=== PATIENT | female | born 1960 | race Caucasian/White ===

== ENCOUNTER 2018-04-29 13:00 | Inpatient (IN) | payer BC ==
--- NOTE | 2018-05-07 13:49 | HP ---
HISTORY AND PHYSICAL: DATE OF SURGERY: 05/20/18 DATE OF OFFICE VISIT: 05/07/18 SURGEON: Asya Mireles MD * (DICTATED BY ISA VALDEZ) PROCEDURE: Left total knee arthroplasty. CHIEF COMPLAINT: Left knee pain. HISTORY OF PRESENT ILLNESS: Ms. Nugent is a 57-year-old female with complaints of left knee pain. She has failed conservative management and elected to proceed with a left total knee arthroplasty which is scheduled for 05/20/[address] Mireles. PAST MEDICAL HISTORY: Hypertension, diabetes, cervical cancer, depression, and anxiety. PAST SURGICAL HISTORY: Cone biopsy of the cervix. CURRENT MEDICATIONS: 1. Calcium. 2. Diltiazem 240 mg daily. 3. Fluoxetine 40 mg daily. 4. Glucosamine chondroitin. 5. Hydrochlorothiazide 25 mg daily. 6. Metformin 500 mg twice a day. 7. Mometasone furoate as needed. 8. Multivitamin daily. 9. Trazodone 100 mg 2 tabs q.h.s. 10. Vitamin B12. 11. Vitamin C. 12. Percocet 10/325 as needed. ALLERGIES: No known drug allergies. FAMILY HISTORY: AFib; breast, prostate, and uterine cancer; coronary artery disease, and Parkinson's. SOCIAL HISTORY: She is a 57-year-old female. She lives with her . She does not smoke, use drugs. She uses occasional alcohol. REVIEW OF SYSTEMS: A complete 14-point review of systems was reviewed with the patient and it was all negative and noncontributory. PHYSICAL EXAMINATION GENERAL: She is well developed, well nourished, in no acute distress. VITAL SIGNS: She stands 66 inches tall, weighs 287 pounds, her blood pressure is 124/70, heart rate is 84. HEENT: Normocephalic and atraumatic. NECK: Supple. No palpable lymph nodes. PULMONARY: The lungs are clear to auscultation bilaterally. CARDIO: Regular, rate and rhythm. Strong S1 and S2. ABDOMEN: Soft, nontender, and nondistended. NEUROLOGIC: She is alert and oriented x3. MUSCULOSKELETAL: Left lower extremity, the skin is intact. There is no open wounds or abrasions. There is a moderate joint effusion. She has some tenderness over the medial joint line. There is a varus deformity of the left knee. Her range of motion is 15 to 100 degrees of flexion with patellofemoral crepitus. She has 2+ dorsalis pedis pulses, intact sensation in her lower extremities. Muscle group strengths are intact at 5/5. ASSESSMENT AND PLAN: Ms. Nugent is a 57-year-old female with end-stage osteoarthritis of the left knee. She has failed conservative management and elected to proceed with a left total knee arthroplasty which is scheduled for 05/20/[address] Mireles discussed the risks and the benefits of the surgery at today's visit. All of her questions were answered. She will follow with Dr. Mireles in 2 weeks. ISA VALDEZ [id number]/CPS #: [id number] MTDD
[2018-05-19] MEDS ORDERED: Ondansetron TAB* 4 MG PO ONE (10:18)
[2018-05-19] MEDS ORDERED: Buffered Lidocaine 0.9% SYRIN* 5 ML/SYR SYRINGE INTRADERM ONE (10:18)
[2018-05-20] MEDS ORDERED: NS 0.9% IVPB SCH ×2
[2018-05-20] MEDS ORDERED: CEFAZOLIN IVPB SCH ×2
[2018-05-20] MEDS ORDERED: PROCHLORPERAZINE INJ 5 MG/ML 2 ML VIAL IV PRN (05:41)
[2018-05-20] MEDS ORDERED: oxyCODONE/Acetamin 5/325 MG* TAB PO PRN ×2 (05:41→12:12)
[2018-05-20] MEDS ORDERED: DiMENhydriNATE IV* 50 MG/ML VIAL IV PUSH PRN (05:41)
[2018-05-20] MEDS ORDERED: Naloxone* 0.4 MG/ML 1 ML VIAL IV PRN (05:41)
[2018-05-20] MEDS ORDERED: Scopolamine 1.5 mg* PATCH TRANSDERM ONE (06:00)
[2018-05-20] MEDS ORDERED: Famotidine IV* 10 MG/ML 2 ML (20 mg) IV ONE (06:00)
[2018-05-20] MEDS ORDERED: Gabapentin CAP(*) 300 MG PO ONE (06:00)
[2018-05-20] MEDS ORDERED: Dexamethasone TAB* 4 MG PO ONE (06:00)
[2018-05-20] MEDS ORDERED: Tranexamic Acid 1,000 MG/10 ML SDV IV ONE (07:18)
--- OUTSIDE RECORDS SUMMARY | 2018-05-20 07:40 | XMS REPORT ---
:1960 External Reference #:[id number] Author Organization [facility] Address [address] [place] [address] [place] [address] Phone [phone] Care Team Providers Name Role Phone Reba Brito MD Primary Care Physician Unavailable Payers Type Date Identification Numbers Payment Provider Subscriber Commercial Effective: Policy Number: [employer] Kinjal Nugent 2011 [id number] PayID: [id number] [address] [address] [place] [address] Problems Date Description Provider Status Onset: 02/03/2018 Localized, primary osteoarthritis Asya Mireles M.D. 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 ETOH Use Drinks 6 Alcoholic Beverages Per Week Smoking Patient is a former smoker quit 1 month ago Exercise Type/Frequency Exercises sporadically Allergies, Adverse Reactions, Alerts Date Description Reaction Status Severity Comments 02/03/2018 NKDA active Medications Medication Date Status Form Strength Qnty SIG Indications Ordering Provider Calcium 00 Active Tablets 500-125mg 1 by mouth Unknown 500/Vitamin D /0000 -Unit daily Fluoxetine HCL Active Capsules 40mg 1 by mouth Unknown /0000 every day Glucosamine 00 Active Capsules 1500Com 2 by mouth Unknown Chondroitin 1500 /0000 every day Complex Hydrochlorothiazid Active Tablets 25mg 1 by mouth Unknown e /0000 every day Metformin HCL Active Tablets 500mg 1 by mouth Unknown /0000 twice a day Mometasone Furoate Active Solution 0.1% as needed Unknown /0000 Multi-Vitamin Active Tablets 1 by mouth Unknown Daily /0000 every day Trazodone HCL Active Tablets 100mg take 2 tabs Unknown po at bedtime Vitamin B12 Active Tablets 1000mcg 1 by mouth Unknown ER every day Vitamin C Active Capsules 1 by mouth Unknown every day Percocet Active 10-325mg Unknown Diltiazem HCL ER Active Caps ER 240mg Alisha, Coated Beads 24HR Reba Berger MD Stool Softener Active Capsules 100mg 1 by mouth Unknown 2-3 times daily while on narcotic pain medication Cartia XT Hx Caps ER 180mg 1 by mouth Unknown 24HR every day - 05/07 Chantix Hx Tablets 1mg 1 by mouth Unknown twice a day - 05/07 Colchicine Hx Capsules 0.6mg 2 po at Unknown / first sigh - of flare 05/07 up, the po every 12 hours after that Meloxicam Hx - 04/10 Medications Administered in Office Medication Date Status Form Strength Qnty SIG Indications Ordering Provider Depomedrol Administered Injection Asya 40MG 018 Marquita Mireles Depomedrol Administered Injection Asya 40MG 018 Marquita Mireles Vital Signs Date Vital Result Comment 05/07/2018 Height 66.5 inches 5'6.50" Weight 286.00 lb Heart Rate 84 /min BP Systolic Sitting 124 mmHg BP Diastolic Sitting 70 mmHg Respiratory Rate 16 /min Body Temperature 97.8 F Pain Level 6 BMI (Body Mass Index) 45.5 kg/m2 04/11/2018 Height 66.5 inches 5'6.50" Weight 280.00 lb Heart Rate 80 /min BP Systolic 144 mmHg BP Diastolic 88 mmHg BMI (Body Mass Index) 44.5 kg/m2 03/14/2018 Height 67 inches 5'7" Weight 282.00 lb BP Systolic 138 mmHg BP Diastolic 88 mmHg Respiratory Rate 18 /min Pain Level 6 BMI (Body Mass Index) 44.2 kg/m2 03/03/2018 Height 67 inches 5'7" Weight 282.00 lb BP Systolic 138 mmHg BP Diastolic 84 mmHg Body Temperature 99.1 F BMI (Body Mass Index) 44.2 kg/m2 02/03/2018 Height 67 inches 5'7" Weight 282.00 lb Heart Rate 68 /min BP Systolic Sitting 152 mmHg LA lg cuff BP Diastolic Sitting 88 mmHg LA lg cuff Pain Level 8 BMI (Body Mass Index) 44.2 kg/m2 Results Description No Information Procedures Date CPT Code Description Status 02/03/2018 77700 Inject/Drain Joint/Bursa Major W/O US Completed Encounters Type Date Location Provider CPT E/M Dx Office Visit 04/11/2018 [facility] M[facility] M.D. 77310 M17.12 8:15a [facility] M21.162 E66.01 Z68.41 M25.562 M25.462 Office Visit 03/14/2018 10:15a [facility] M.D. 47143 M17.0 [facility] Office Visit 03/03/2018 9:15a [facility] M.D. 02538 M17.0 [facility] M25.561 M25.562 M25.461 M25.462 Office Visit 02/03/2018 8:30a [facility] M.D. 93812 M17.0 [facility] E66.01 Z68.41 M25.561 M25.562 M25.461 M25.462 Office Visit 12/22/2012 2:20p [facility] Steve Dooley, [address] 721.0 Of Kasie Juárez 723.1 Plan of Care Future Appointment(s):05/30/2018 2:00 pm - Asya Mireles M.D. at [facility]05/20/2018 9:30 am - Asya Mireles M.D. at [facility]05/07/2018 - Asya Mireles M.D.M17.12 Unilateral primary osteoarthritis, left kneeFollow up:Follow up: 2 weeks after skiqyfzV92.162 Varus deformity, not elsewhere classified, left kneeM25.562 Pain in left kneeM25.462 Effusion, left knee
--- OUTSIDE RECORDS SUMMARY | 2018-05-20 07:40 | XMS REPORT ---
:1960 External Reference #:[id number] Author Organization [facility] Address [address] [place] [place] [address] Phone [phone] Care Team Providers Name Role Phone Jeremiah Carrillo N.P. Care Team Information Lehr Tender Unavailable Reba Brito M.D., R.Rudolph Primary Care Physician Unavailable Payers Type Date Identification Numbers Payment Provider Subscriber Commercial Policy Number: [id number] [facility] Kinjal Nugent Group Number: [id number] 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 Cigarette Use Current Cigarette Smoker 1 Pack Daily 25 years Cigars Never Smoked Cigars Pipe Never Smoked A Pipe Smokeless Tobacco Never Used Smokeless Tobacco ETOH Use Currently occasionally consumes alcohol Smoking Patient is a former smoker Allergies, Adverse Reactions, Alerts Date Description Reaction Status Severity Comments 08/17/2011 NKDA active Medications Medication Date Status Form Strength Qnty SIG Indications Ordering Provider Fluticasone 05/08 Active Suspension 50mcg/Act 47.4m 2 puffs H69.83 Sebastián Propionate /2017 l both Mandy ortiz MD once a day Hydrochlorothiazid 00 Active 25mg 1 tab Unknown e daily Vitamin C Active 1 tab Unknown daily Multivitamins Active as Unknown directed Trazodone HCL Active Tablets 100mg 1 tab at Alisha, /0000 bedtime Reba Juárez, R.DJosh Metformin HCL Active Tablets 500mg 1 tab Lorena twice N.P., daily Jeremiah Diltiazem HCL ER Active Caps ER 240mg Alisha, Coated Beads 24HR Reba Juárez, R.DJosh Oxycodone-Acetamin Active Tablets 10-325mg as Alisha, ophen / directed Reba Juárez, R.Rudolph Glucosamine Active Tablets 1500Compl 2 tabs Unknown Chondroitin ex daily Complex Advanced Colace Active Capsules 100mg 1 by Unknown mouth twice a day Ciprodex 10/26 Hx Suspension 0.3-0.1% 1unit 3 gtts 380.23 Sebastián s bid [place] - affected , 05/08 [place] 10/18 Hx Ointment 0.1% 15G apply to 380.23 Sebastián affected [place] - area MD 05/08 twice a /2017 day Cipro 10/18 Hx Tablets 500mg 40tab 1 po bid 380.23 Sebastián s x 7 days Mandy - MD 05/08 Prozac / Hx Unknown - 05/08 Potassium Hx Unknown - 05/08 Calcium 500 Hx Unknown - 05/08 Lunesta Hx Unknown - 05/08 Neomycin/Polymyxin Hx Unknown /Hydrocortisone / - 10/18 Tobradex Hx Unknown - 10/18 Oxycodone HCL Hx Unknown - 05/08 Cipro HC Hx Unknown - 05/08 Hydrocodone-Acetam Hx Tablets 5-325mg Alisha inophen Reba Stevens M.D., 05/08 R.DJosh Vital Signs Date Vital Result Comment 05/08/2018 Weight 280.00 lb Weight in kg's 127.008 Height 67 inches 5'7" Height in cm's 170.2 cm BMI (Body Mass Index) 43.8 kg/m2 08/30/2011 BP Systolic 157 mmHg BP Diastolic 95 mmHg Heart Rate 71 /min Respiratory Rate 16 /min Weight 296.00 lb Weight in kg's 134.266 Height 67 inches 5'7" Height in cm's 170.2 cm BMI (Body Mass Index) 46.4 kg/m2 08/17/2011 Weight 296.00 lb Weight in kg's 134.266 Height 67 inches 5'7" Height in cm's 170.2 cm BMI (Body Mass Index) 46.4 kg/m2 Results Description No Information Procedures Description No Information Encounters Type Date Location Provider CPT E/M Dx Office Visit 05/08/2018 9:30a [place] 11/18/07 [place] [address] H69.83 L50.6 Office Visit 10/26/2011 9:45a [facility] 11/18/07 [place] [address] 380.23 388.60 Office Visit 10/19/2011 1:30p [place] 11/18/07 [place] [address] 380.23 388.60 Office Visit 10/18/2011 8:30a [place] 11/18/07 [place] [address] 380.23 Office Visit 08/30/2011 8:45a [place] 11/18/07 [place] [address] 380.23 Office Visit 08/17/2011 11:30a [place] 11/18/07 [place] [address] 388.60 380.23 401.9 Plan of Care Future Appointment(s):08/07/2018 9:15 am - Sebastián Galvan MD at [place] - Sebastián Galvan MDH69.83 Other specified disorders of Eustachian tube, bilateralNew Medication:Fluticasone Propionate 50 mcg/ ActComments:I think the patient has symptoms somewhat suggestive of eustachian tube dysfunction there is no significant mucosal abnormality. She has some mild summation of her lips I suggest she can try some topical nasal steroid like Flonase for eustachian tube symptoms this will probably improve some of her eye symptoms as well. She can use topical steroid for her lips sparingly. Recheck back in 3 months if symptoms have not improved.L50.6 Contact urticaria
--- OUTSIDE RECORDS SUMMARY | 2018-05-20 07:41 | XMS REPORT ---
:1960 External Reference #:[id number] Author Organization [facility] Address [address] [place] [address] Phone [phone] Care Team Providers Name Role Phone Reba Brito M.D., R.D. Care Team Information Forensic Scientist Unavailable Payers Type Date Identification Numbers Payment Provider Subscriber Commercial Effective: Policy Number: Deanna Simmons Raffi 2010 [id number] Expires: 2013 Group Name: [employer] ppo [address] PayID: [id number] ALEJO Miguel [id number] Medigap Part B Expires: 2009 Policy Number: Deanna Duval [id number] Group Number: [id number] [address] [address] Group Name: BC/BS of ALEJO Lopes [address]3549 PayID: [id number] Medigap Part B Effective: Policy Number: Deanna Simmons Raffi 2013 [id number] Expires: 2016 Group Name: [employer] [address] PayID: [id number] ALEJO Miguel [id number] Medigap Part B Effective: Policy Number: Deanna Simmons Raffi 2016 [id number] Group Name: [employer] [address] [address] PayID: [id number] ALEJO Miguel [id number] Problems Date Description Provider Status Onset: 09/19/2011 Type 2 diabetes mellitus Tammy Benton M.D. Active Onset: 09/19/2011 Essential hypertension Tammy Benton M.D. Active Onset: 09/19/2011 Pure hypercholesterolemia Tammy Benton M.D. Active Onset: 09/19/2011 Inflammatory disease of liver Tammy Benton M.D. Active Onset: 09/19/2011 Anxiety state Tammy Benton M.D. Active Family History Date Family Member(s) Problem(s) Comments Father Cancer, Prostate Mother Hypertension Mother Anticoagulation Mother Obesity Onset: (age 63 Years) Mother Cancer, Breast Mother Uterine cancer : (age 82 Paternal Grandfather due to Parkinson's Years) Paternal Grandfather CAD : (age 83 Paternal Grandmother due to Cancer, Lung Years) Maternal Grandfather CAD : (age 60 Maternal Grandfather due to AL Years) Maternal Grandfather Obesity Maternal Grandmother CAD : (age 82 Maternal Grandmother due to CHF (Congestive Years) Failure) Maternal Grandmother Obesity Social History Type Date Description Comments Marital Status Sleep Sleeping fairly well As of 11/2015, taking trazadone rarely Cigarette Use Former Cigarette Smoker ETOH Use Occasionally consumes alcohol Smoking Patient is a former smoker Stopped 2017 Daily Caffeine Coffee Am only, occasional iced tea Enjoy Exercising Enjoys exercising General Hx Text No longer smokes. Allergies, Adverse Reactions, Alerts Date Description Reaction Status Severity Comments 11/30/2010 NKDA active Medications Medication Date Status Form Strength Qnty SIG Indications Ordering Provider Ursula CHEUNG 04/25 Active Caps ER 240mg 30cap 1 by 24HR s mouth Alisha, daily for M.D., R.D. blood pressure Neomycin/Polymyxi 04/01 Active Solution [id number] 10ml instill 4 H60.8x3 Jeremiah n/Hydrocortisone /2018 -1 drops [place] (Otic) into both III, APPLICATION SUPPORT TECHNICIAN-C ears three times a day for 7 days Percocet 03/10 Active Tablets 10-325mg 90tab 1 by s mouth Alisha, every 4 M.D., R.D. hours as needed pain Meloxicam 02/28 Active Tablets 15mg 30tab 1 by M25.561 s mouth Alisha, every day Marquita, RJanice. Christie Contour 09/28 Active Strips 100un test Shawtonyai Dottie Next its blood Storm, Glucose Test sugar APPLICATION SUPPORT TECHNICIAN-C twice a day & as needed Vitamin B12 02/25 Active Tablets ER 1000mcg sl every day Marquita Brito, R.D. Calcium 500 + D 11/21 Active Tablets 500-125mg -Unit Marquita Brito, R.D. Glucosamine 11/21 Active Capsules Reba Chondroitin Marquita Brito, R.D. Multivitamins 11/21 Active Capsules 90cap 1 by s mouth Alisha, every day Marquita, REvelyn Vitamin C 11/21 Active Capsules 500mg 1 po qd Marquita Brito, R.D. Christie Contour 01/27 Active Kit W/Device 1unit use to Joan Sinclair Blood Glucose s test Storm, Monitoring System blood APPLICATION SUPPORT TECHNICIAN-C sugar daily for diabetes Mometasone 04/29 Active Ointment 0.1% 45gm apply as Reba Fur needed to kiana Brito M.D., REvelyn canals Trazodone HCL 12/14 Active Tablets 100mg 60tab take one G47.00 s or two reji Brito M.D., R.DJosh by mouth at at bedtime for treatment for insomnia Metformin HCL 09/19 Active Tablets 500mg 60tab take one E11.9 Jeremiah s tablet by Lorena mouth III, APPLICATION SUPPORT TECHNICIAN-C twice a day with meals Fluoxetine HCL 12/24 Active Capsules 40mg 90cap take one E78.0 Shawnti R. s capsule Storm, by mouth APPLICATION SUPPORT TECHNICIAN-C once daily Hydrochlorothiazi 07/28 Active Tablets 25mg 90tab take one Reba s tablet by ronal Brito M.D., R.DJosh once daily Hydrocodone-Aceta 04/11 Hx Tablets 5-325mg 45tab take 1 Reba s tablets Rodney Brito by mouth Marquita, RJoshDJosh 05/30 every hours as needed for severe pain Ciprodex 04/01 Hx Suspension 0.3-0.1% 7.500 apply 4 H60.8x3 ml drops [place] - into both III, APPLICATION SUPPORT TECHNICIAN-C 04/01 twice daily for 7 days. Percocet 02/05 Hx Tablets 5-325mg 60tab 2 by s mouth Alisha, - rosita Juárez, R.D. 03/10 times day as needed pain Chantix 01/13 Hx Tablets 1mg 60tab 1 by Kendall Continuing s mouth Deepak Thomas - twice a Chantix Starting 12/11 Hx Tablets 0.5mg X 1tabs take Reba 11 & 1 mg oraly per Alisha, - X 42 package Marquita, R.DJosh 01/13 s Cartia XT 10/28 Hx Caps ER 180mg 30cap 1 po qd 24HR s Rodney Brito M.D., R.D. 04/25 Colchicine 03/08 Hx Capsules 0.6mg 10cap 1.2 mg by M79.671 Kendall s mouth at [facility], - first 01/30 sign flare, then 0.6 mg 1 hour later . take every 12 hours until improving . Contrave 02/25 Hx Tablets ER 8-90mg 120ta take 2 12HR bs tablets Alisha, - by mouth Marquita, R.DJosh 10/21 twice a day Bactrim DS 05/11 Hx Tablets 800-160mg 20tab 1 by N61 Lalowntandrea R. s mouth Storm, - twice a APPLICATION SUPPORT TECHNICIAN-C 05/21 day for infection Cartia XT 03/20 Hx Caps ER 120mg 90cap Take One I10 Shawnti R. 24HR s Capsule Storm, - By Mouth APPLICATION SUPPORT TECHNICIAN-C 10/28 Daily as Directed Chrsitie Contour 01/27 Hx Strips 100un test Shawnti RJosh Blood Glucose /2014 its daily and Storm, Test Strips - as needed APPLICATION SUPPORT TECHNICIAN-C 09/28 diabetes Oxycodone/Acetami 07/16 Hx Tablets 5-325mg 90tab i-ii po 724.2 Shanon nop s qid prn Nicholas Gomez, - severe M.D. 04/21 pain /2014 Percocet 07/05 Hx Tablets 5-325mg 4tabs 1 po qd prn Brianda Marino, - severe M.D. 04/21 pain, do /[address] after taking Nabumetone 07/01 Hx Tablets 750mg 60tab one by Joan Sinclair s mouth Brenton, - twice a APPLICATION SUPPORT TECHNICIAN-C 04/21 day food for pain replaces ibuprofen Ibuprofen 06/25 Hx Tablets 600mg 90tab 1 by Shanon s mouth Nicholas Gomez, - three M.D. 07/01 times day as needed for pain in the knees Zolpidem Tartrate 11/30 Hx Tablets 5mg 30tab Take one Shanon s po at hs Nicholas Gomez, - M.D. 04/21 Nystatin 07/23 Hx Ointment [id number] 60gm apply to 110.2 t/GM affected Nicholas Gomez, - area bid M.D. 04/21 Fluocinonide 12/03 Hx Cream 0.05% 15gm use on 691.8 eczema K.W. - rash bid Chetan 04/21 prn Samira.DJosh Chantix 10/27 Hx Tablets 1mg 60tab 1 bid - s take one K.W. - tablet by Chetan 07/23 mouth M.D. twice daily Chantix Starting 09/30 Hx Tablets 0.5mg X 60tab as Reba Month 11 & 1 mg s Alisha liu, - X increase M.DJosh, R.D. 12/11 to one mg /2017 by mouth every day to quit smoking Metformin HCL 07/15 Hx Tablets 500mg 30tab take 11/19 723.1 s tablet by K.W. - mouth Chetan, 12/03 twice a M.D. day with meals Accu-Chek Comfort 05/16 Hx Strips 100un use as Shawnti R. Curve Test Strips /2011 its directed Brenton, - to check APPLICATION SUPPORT TECHNICIAN-C 01/27 fasting /2014 and post prandial blood sugar up to two times a day Oxycodone/Acetami 05/08 Hx Tablets 5-325mg 90tab i-ii po 724.2 Shanon nophen s qid prn Nicholas Gomez, - severe M.D. 07/23 pain /2012 Nabumetone 05/08 Hx Tablets 500mg 60tab 1 po bid 724.2 s prn Brijesh germainWJosh - back and Chetan, 12/03 other M.D. arthritic pain Cyclobenzaprine 05/08 Hx Tablets 10mg 30tab Take 11/19 724.2 Shanon HCL s Or 1 Nicholas Gomez, - Tablet By M.D. 04/21 Mouth Three Times A Day as Needed For Muscle Spasm (Will Cause Tiredness ) Buspirone HCL 12/05 Hx Tablets 10mg 60tab one po 300.00 s tid prn K.W. - anxiety Chetan, 02/19 M.D. Accu-Chek 11/26 Hx Strips 100un testing Tammy Advantage Test /2011 its qd. or as K.W. Strips - directed Chetan, 05/16 M.D. Cipro HC 10/17 Hx Suspension 0.2-1% 10cc apply 3 380.16 gtts to K.W. - each eac Chetan, 02/19 tid M.D. Oxycodone/Acetami 10/17 Hx Tablets 5-325mg 40tab i-ii po 380.16 Tammy nop s qid prn K.W. - severe Chetan, 02/19 pain M.D. Accu-Chek 09/25 Hx Kit 1unit with 250.00 Advantage s accuchek K.WJosh Diabetes Care Kit - monitorin Chetan, 11/26 g strips M.D. (100) Alprazolam 09/19 Hx Tablets 0.25mg 120ta 1-2 po up 300.00 bs to tid K.W. - prn Chetan, 07/15 anxiety M.D. or 2 at for sleep Clotrimazole/Beta 09/19 Hx Cream 1-0.05% 30g apply to 782.1 Tammy methasone affected K.W. Dipropionate - areas of Chetan, 02/19 rash on M.D. trunk and limbs two times a day as needed. Christie Contour 09/19 Hx Strips 100un Ud to 250.00 Tammy Blood Glucose its check K.W. Test Strips - FBS, and Chetan 09/25 post M.D. prandial BS up to bid Fluconazole 09/19 Hx Tablets 150mg 2tabs 1 po now for K.W. - yeast, Chetan, 02/19 M.D. repeat in 10 days if sx still present Tobradex 07/24 Hx Ointment 0.3-0.1% 3g apply 373.02 thin K.W. - ribbon to Chetan, 09/19 lower lid M.D. OU and surroundi ng skin bid Neomycin/Polymyxi 06/22 Hx Solution 3.5-62406 1bott 3gtts 380.22 Shawnti R. n/Hydrocortisone /2010 -1 le both ears Storm, - qid for APPLICATION SUPPORT TECHNICIAN-C 09/19 5-7 days /2010 or until resolved Fexofenadine HCL 06/22 Hx Tablets 180mg 90tab 1 po qd 372.14 Shawnti R. /2010 s for Storm, - allergies APPLICATION SUPPORT TECHNICIAN-C 07/15 Azelastine HCL 06/22 Hx Solution 0.05% 1mont 1 drop 372.14 Shawnti R. /2010 h each eye Storm, - bid for APPLICATION SUPPORT TECHNICIAN-C 09/19 allergies Percocet 11/30 Hx Tablets 5-325mg 10ten 1-2 tabs 724.5 Shawnti R. /2010 po qhs Storm, - prn APPLICATION SUPPORT TECHNICIAN-C 02/12 severe pain Cyclobenzaprine 11/30 Hx Tablets 10mg 30tab 1/2 or 1 724.5 Shawnti R. HCL /2010 s po tid Storm, - for APPLICATION SUPPORT TECHNICIAN-C 09/19 muscle spasm, will cause tiredness Tobradex 06/03 Hx Ointment TS apply 373.02 thin Cat.Judd - ribbon to Chetan, 07/24 lower lid M.D. bid Patanol 06/03 Hx Solution 0.1% 5ml one to 373.02 two gtts [place] - ou bid Chetan, 02/12 prn M.D. allergic conjuncti vitis Nasonex 12/24 Hx Suspension 50mcg/Act 17G two puff 381.81 to each Cat.Judd - nostril Chetan, 09/19 qam prn M.D. nasal congestio n Renea 12/24 Hx Tablets 180mg 90tab 1 po qd 381.81 s prn [place] - allergies Chetan, 09/19 M.D. Proventil HFA 12/24 Hx Aerosol 108mcg/Ac 1unit 2 puffs 490 t s q4h prn [place] - wheezing, Chetan, 09/19 cough M.D. Zithromax Z-Thomas 12/24 Hx Tablets 250mg 6tabs two po qd 490 today and [place] - then one Chetan, 01/03 po qd for M.D. 4 days Loprox 12/24 Hx Cream 0.77% 15G apply to 490 skin rash [place] - on right Chetan, 09/19 calf bid M.D. Cardizem CD 12/24 Hx Caps ER 120mg 90cap 1 po qd 401.9 Shanon 24HR s Rodney Reilly M.DJosh 03/20 Lunesta 09/10 Hx Tablets 3mg 30tab one po hs 780.52 Shanon s prn Rodney Reilly insomnia M.D. 11/30 KCL 07/28 Hx Tablets 20Meq 90tab i po qd 401.9 leanna Benton, 04/21 M.D. Prozac 07/28 Hx Capsules 20mg 30cap 1 PO qd 300.00 s [place] Benton, 12/24 M.D. /2009 Bactrim DS 05/29 Hx Tablets 160mg;800 14tab 1 po bid Jocelin /2007 mg s x 7 days P. Blegen, - M.D. 07/28 Percocet 10/18 Hx Tablets 7.5mg;325 20tab i-ii po 724.5 Shawnti R. /2005 mg s q6hr prn Storm, - pain APPLICATION SUPPORT TECHNICIAN-C 11/30 Zanaflex 10/16 Hx Tablets 4mg 28tab 1 or two 724.5 s po at hs K.W. - prn Chetan, 12/24 muscle M.D. spasm Oxycodone 10/16 Hx Capsules 5mg 60cap one to 724.5 s two po K.W. - bid to Chetan, 10/18 qid prn M.D. severe back pain Physical Therapy 10/16 Hx 12uni evaluate 724.5 ts and treat K.W. - low back Chetan, 07/28 pain M.D. Ambien 10/01 Hx Tablets 10mg 30tab 1/2 to 1 780.52 s tablet K.W. - qhs prn Chetan, 09/10 sleep M.D. Ambien CR 04/19 Hx Tablets 12.5mg 30tab 1 po at 780.52 s hs prn K.W. - insomnia Chetan, 10/01 M.D. Ambien 12/29 Hx Tablets 10mg 30tab /2 to 1 s tablet K.W. - qhs prn Chetan, 06/25 sleep M.D. Nasonex NS 12/29 Hx [place] 50mcg 17gm two 381.01 sprays K.W. - each Chetan, 04/19 nostril M.D. qd prn congestio n or ear pain Hydrochlorothiazi 05/01 Hx Capsules 12.5mg 30cap 1 po qd 401.9 Tammy s K.W. - Chetan, 04/19 M.D. Zanaflex 03/28 Hx Tablets 4mg 28tab 1 or two s po at hs K.W. - prn Chetan, 05/01 muscle M.D. spasm Hydrochlorothiazi 03/28 Hx Tablets 25mg 30tab 1 po qd 401.9 s [place] - Chetan, 05/01 M.D. Physical Therapy 03/28 Hx 12uni evaluate 724.2 ts and treat K.W. - low back Chetan, 04/19 pain M.D. Percocet 03/20 Hx Tablets 7.5mg;325 120ta 1-2 q6 mg bs hours prn [place] Benton, 05/01 M.D. Hydrochlorothiazi 02/21 Hx Capsules 12.5mg 30cap 1 po qd 401.9 s [place] Benton, 03/28 M.D. Sphygnomanometer, 02/21 Hx 1unit Check BP 401.9 s daily or K.W. - prn. Chetan, 02/12 M.D. Percocet 02/07 Hx Tablets 7.5mg;325 60tab 1-2 q6 906.8 Tammy /2004 mg s hours prn [place] - Chetan, 02/21 M.D. Hydrocodone & 02/03 Hx Capsules 500mg;5 60cap i-ii po Tammy Acetaminophen /2004 mg s qid prn K.WJosh - severe Chetan, 02/21 pain M.D. Kenalog Cream 01/23 Hx 0.1% 30G apply bid 782.1 to rash K.W. - on Chetan, 02/19 forearms. M.D. /2011 Vioxx 10/04 Hx Tablets 50mg 30tab one qd s prn pain, K.W. - no more Chetan, 08/28 than 5 M.D. /2003 days a month. Vermox 08/27 Hx Chewtabs 100mg 2unit one qd x1 Augustine s for Sami, - pinworm, M.D. 10/04 repeat x1 after 7 days Darvocet N-100 10/22 Hx Tablets 100ta one q4h bs prn pain [place] Benton, 02/21 M.D. Zoloft 09/18 Hx Tablets 100mg 30tab one qd 311 s [place] Benton, 05/01 M.D. Ambien 08/15 Hx Tablets 5mg 30tab take one s tablet at .W. - bedtime Chetan, 12/29 prn M.D. /2004 insomnia Mometasone Hx Ointment 0.1% Unknown Furoate /0000 - 12/03 Potassium Hx Tablets ER 20Meq Unknown Chloride ER /0000 - 04/21 Immunizations CPT Code Status Date Vaccine Lot # [id number] Given 2017 Influenza Virus Vaccine, Quadrivalent, 3 Yr > Quad, Preserv Free 06884 Given 08/27/2016 Influenza Virus Vaccine, Quadrivalent, 3 Yr > Quad, Preserv Free 03119 Given 09/03/2015 Influenza Virus Vaccine, Quadrivalent, 3 Yr > Quad, Preserv Free 96112 Given 08/26/2014 Influenza Virus Vaccine, Quadrivalent, 3 Yr > Quad, Preserv Free 62092 Given 08/21/2013 Pneumovax 23 (PPSV23) 65+ years or high risk 2 to [id number] 64 year old 76099 Given 08/21/2013 Influenza Vaccine-Preservative Free 3 Yrs And [id number] Above 28843 Given 09/03/2012 Influenza Vaccine-Preservative Free 3 Yrs And [id number] Above 91340 Given 09/19/2011 Tdap (Adacel) 67543 Given 07/24/2011 Influenza Vaccine-Preservative Free 3 Yrs And [id number] Above 99078 Given 02/08/2004 DT (Adult) 53889 Given 09/18/2002 Influenza Virus Vaccine, 3 Yrs And Above 90943 Given 08/31/1997 Influenza Virus Vaccine 30887 Given 08/31/1997 DT (Adult) Vital Signs Date Vital Result Comment 04/25/2018 Weight 284.00 lb Weight in kg's 128.822 BP Systolic 152 mmHg BP Diastolic 90 mmHg Heart Rate 78 /min Body Temperature 98.8 F Respiratory Rate 18 /min 04/01/2018 Weight 284.00 lb Weight in kg's 128.822 BP Systolic 148 mmHg BP Diastolic 82 mmHg Heart Rate 68 /min Body Temperature 99.1 F Respiratory Rate 20 /min 02/28/2018 Weight 285.00 lb Weight in kg's 129.276 BP Systolic 122 mmHg BP Diastolic 82 mmHg Heart Rate 62 /min Body Temperature 98.4 F Respiratory Rate 18 /min Height 66.5 inches 5'6.50" BMI (Body Mass Index) 45.3 kg/m2 O2 % BldC Oximetry 95 % 10/21/2017 BP Systolic 150 mmHg BP Diastolic 90 mmHg Heart Rate 73 /min Body Temperature 98.3 F O2 % BldC Oximetry 96 % 03/08/2017 Weight 270.00 lb Weight in kg's 122.472 BP Systolic 130 mmHg BP Diastolic 84 mmHg Heart Rate 80 /min Body Temperature 100.1 F Respiratory Rate 18 /min O2 % BldC Oximetry 98 % 02/25/2017 Weight 269.00 lb Weight in kg's 122.018 BP Systolic 140 mmHg BP Diastolic 72 mmHg Heart Rate 68 /min Body Temperature 99.2 F Respiratory Rate 14 /min Height 66 inches 5'6" BMI (Body Mass Index) 43.4 kg/m2 05/14/2016 Weight 253.00 lb Weight in kg's 114.761 BP Systolic 130 mmHg BP Diastolic 80 mmHg Heart Rate 62 /min 05/11/2016 Weight 250.00 lb Weight in kg's 113.400 BP Systolic 110 mmHg BP Diastolic 72 mmHg Heart Rate 72 /min Body Temperature 98.6 F 11/21/2015 Weight 272.00 lb Weight in kg's 123.379 BP Systolic 144 mmHg BP Diastolic 84 mmHg Heart Rate 76 /min Height 66 inches 5'6" BMI (Body Mass Index) 43.9 kg/m2 04/21/2015 Weight 283.00 lb Weight in kg's 128.369 BP Systolic 150 mmHg BP Diastolic 90 mmHg Heart Rate 62 /min 10/01/2014 Weight 259.00 lb Weight in kg's 117.482 BP Systolic 126 mmHg BP Diastolic 84 mmHg Heart Rate 80 /min Height 66 inches 5'6" BMI (Body Mass Index) 41.8 kg/m2 04/29/2014 Weight 260.00 lb Weight in kg's 117.936 BP Systolic 122 mmHg BP Diastolic 64 mmHg Heart Rate 64 /min Body Temperature 99.3 F 03/19/2014 Weight 270.00 lb Weight in kg's 122.472 BP Systolic 130 mmHg BP Diastolic 78 mmHg Heart Rate 66 /min Body Temperature 98.0 F 12/14/2013 Weight 272.00 lb Weight in kg's 123.379 BP Systolic 164 mmHg BP Diastolic 80 mmHg Heart Rate 88 /min 07/23/2013 Weight 270.00 lb Weight in kg's 122.472 BP Systolic 140 mmHg BP Diastolic 82 mmHg Heart Rate 76 /min Height 65 inches 5'5" BMI (Body Mass Index) 44.9 kg/m2 12/03/2012 Weight 242.00 lb Weight in kg's 109.771 BP Systolic 116 mmHg BP Diastolic 82 mmHg Heart Rate 68 /min 11/27/2012 Weight 241.00 lb Weight in kg's 109.318 BP Systolic 126 mmHg BP Diastolic 82 mmHg Heart Rate 61 /min Body Temperature 98.0 F O2 % BldC Oximetry 98 % 07/15/2012 Weight 238.00 lb Weight in kg's 107.957 BP Systolic 122 mmHg BP Diastolic 70 mmHg Heart Rate 60 /min Height 67.5 inches 5'7.50" BMI (Body Mass Index) 36.7 kg/m2 05/08/2012 Weight 241.00 lb Weight in kg's 109.318 BP Systolic 150 mmHg BP Diastolic 90 mmHg Heart Rate 76 /min Body Temperature 98.6 F 02/20/2012 Weight 253.00 lb Weight in kg's 114.761 BP Systolic 140 mmHg BP Diastolic 80 mmHg Heart Rate 80 /min 12/05/2011 Weight 270.00 lb Weight in kg's 122.472 BP Systolic 110 mmHg BP Diastolic 68 mmHg Heart Rate 76 /min 10/17/2011 Weight 280.00 lb Weight in kg's 127.008 BP Systolic 130 mmHg BP Diastolic 82 mmHg Heart Rate 76 /min Body Temperature 99.4 F 09/19/2011 Weight 288.00 lb Weight in kg's 130.637 BP Systolic 142 mmHg BP Diastolic 80 mmHg Heart Rate 80 /min Height 67 inches 5'7" BMI (Body Mass Index) 45.1 kg/m2 Last Menstrual Period [id number] 07/24/2011 Weight 294.00 lb Weight in kg's 133.358 BP Systolic 134 mmHg BP Diastolic 84 mmHg Heart Rate 84 /min Body Temperature 98.1 F 06/22/2011 Weight 291.00 lb Weight in kg's 131.998 BP Systolic 132 mmHg BP Diastolic 80 mmHg Heart Rate 76 /min Body Temperature 98.5 F 11/30/2010 Weight 285.00 lb Weight in kg's 129.276 BP Systolic 144 mmHg BP Diastolic 94 mmHg Heart Rate 72 /min 06/03/2009 Weight 259.00 lb Weight in kg's 117.482 BP Systolic 150 mmHg BP Diastolic 96 mmHg Heart Rate 88 /min 02/23/2009 Weight 268.00 lb Weight in kg's 121.565 BP Systolic 140 mmHg BP Diastolic 80 mmHg Heart Rate 80 /min 12/24/2008 Weight 270.00 lb Weight in kg's 122.472 BP Systolic 150 mmHg BP Diastolic 90 mmHg Heart Rate 76 /min Height 66.5 inches 5'6.50" BMI (Body Mass Index) 42.9 kg/m2 Last Menstrual Period [id number] 04/22/2008 Weight 253.00 lb Weight in kg's 114.761 BP Systolic 154 mmHg BP Diastolic 98 mmHg Heart Rate 88 /min Body Temperature 99.4 F Height 66.5 inches 5'6.50" BMI (Body Mass Index) 40.2 kg/m2 01/16/2008 Weight 254.00 lb Weight in kg's 115.214 BP Systolic 160 mmHg BP Diastolic 90 mmHg Heart Rate 82 /min Height 66.5 inches 5'6.50" BMI (Body Mass Index) 40.4 kg/m2 08/06/2007 Weight 245.00 lb Weight in kg's 111.132 BP Systolic 122 mmHg BP Diastolic 70 mmHg Heart Rate 80 /min Height 66.5 inches 5'6.50" BMI (Body Mass Index) 38.9 kg/m2 07/28/2007 Weight 249.00 lb Weight in kg's 112.946 BP Systolic 138 mmHg BP Diastolic 88 mmHg Heart Rate 64 /min Height 66.5 inches 5'6.50" BMI (Body Mass Index) 39.6 kg/m2 Last Menstrual Period [id number] [facility] 10/16/2006 Weight 253.00 lb Weight in kg's 114.761 BP Systolic 140 mmHg BP Diastolic 88 mmHg Heart Rate 68 /min Height 66.5 inches 5'6.50" BMI (Body Mass Index) 40.2 kg/m2 04/19/2006 Weight 247.00 lb Weight in kg's 112.039 BP Systolic 122 mmHg BP Diastolic 70 mmHg Heart Rate 80 /min Respiratory Rate 18 /min Height 66.5 inches 5'6.50" BMI (Body Mass Index) 39.3 kg/m2 12/29/2004 Weight 274.00 lb Weight in kg's 124.286 BP Systolic 124 mmHg BP Diastolic 82 mmHg Heart Rate 76 /min Height 66.5 inches 5'6.50" BMI (Body Mass Index) 43.6 kg/m2 Last Menstrual Period [id number] 05/01/2004 Weight 269.00 lb Weight in kg's 122.018 BP Systolic 126 mmHg BP Diastolic 82 mmHg Heart Rate 79 /min Respiratory Rate 18 /min 03/28/2004 Weight 269.00 lb Weight in kg's 122.018 BP Systolic 148 mmHg BP Diastolic 100 mmHg Heart Rate 84 /min Body Temperature 98.6 F 02/22/2004 Weight 269.00 lb Weight in kg's 122.018 BP Systolic 132 mmHg BP Diastolic 86 mmHg 02/08/2004 Weight 274.00 lb Weight in kg's 124.286 BP Systolic 146 mmHg BP Diastolic 82 mmHg Heart Rate 72 /min Body Temperature 98.8 F 01/24/2004 Weight 273.00 lb Weight in kg's 123.833 BP Systolic 156 mmHg BP Diastolic 92 mmHg Heart Rate 88 /min Body Temperature 98.2 F 12/07/2003 Weight 268.00 lb Weight in kg's 121.565 BP Systolic 110 mmHg BP Diastolic 80 mmHg Heart Rate 68 /min Respiratory Rate 18 /min Height 67 inches BMI (Body Mass Index) 42.0 kg/m2 Last Menstrual Period [id number] 05/03/2003 Weight 258.00 lb Weight in kg's 117.029 BP Systolic 100 mmHg BP Diastolic 70 mmHg Body Temperature 99.9 F 09/18/2002 Weight 240.00 lb Weight in kg's 108.9 BP Systolic 100 mmHg BP Diastolic 70 mmHg Heart Rate 80 /min Respiratory Rate 18 /min Height 67.5 inches BMI (Body Mass Index) 37.0 kg/m2 Last Menstrual Period [id number] Results Test Date Test Result H/L Range Note Order 04/25/2018 EKG <pending> Urine Microalbumin Random 02/28/2018 Ur Microalbumin (mg/L) 30.1 mg/L Urine Creatinine 231.17 mg/dL Urine Microalbumin/Creatinine 13.0 ug/mg <31 Laboratory test 02/28/2018 Cytology SEE RESULT BELOW 1 finding Laboratory test 02/26/2018 Hemoglobin A1c 5.7 % High 4.0-5.6 2 finding Liver Function Panel 02/26/2018 Direct Bilirubin 0.10 mg/dL 0.03-0.18 Indirect Bilirubin 0.2 mg/dL Low 0.3-1.0 CBC Auto Diff 02/26/2018 White Blood Count 4.9 10^3/uL 3.5-10.8 Red Blood Count 3.70 10^6/uL Low 4.0-5.4 Hemoglobin 12.9 g/dL 12.0-16.0 Hematocrit 37 % 35-47 Mean Corpuscular Volume 101 fL High 80-97 Mean Corpuscular Hemoglobin 35 pg High 27-31 Mean Corpuscular HGB Conc 35 g/dL 31-36 Red Cell Distribution Width 13 % 10.5-15 Platelet Count 275 10^3/uL 150-450 Mean Platelet Volume 8.0 um3 7.4-10.4 Abs Neutrophils 2.5 10^3/uL 1.5-7.7 Abs Lymphocytes 1.7 10^3/uL 1.0-4.8 Abs Monocytes 0.4 10^3/uL 0-0.8 Abs Eosinophils 0.2 10^3/uL 0-0.6 Abs Basophils 0 10^3/uL 0-0.2 Abs Nucleated RBC 0 10^3/uL Granulocyte % 51.4 % 38-83 Lymphocyte % 34.3 % 25-47 Monocyte % 8.3 % High 0-7 Eosinophil % 5.1 % 0-6 Basophil % 0.9 % 0-2 Nucleated Red Blood Cells % 0.2 Laboratory test finding 02/26/2018 Vitamin B12 314 pg/mL 180-914 3 Lipid Profile (Trig/Chol/HDL) 02/26/2018 Triglycerides 194 mg/dL 4 Cholesterol 231 mg/dL 5 HDL Cholesterol 77.3 mg/dL 6 LDL Cholesterol 115 mg/dL 7 Comp Metabolic Panel 02/26/2018 Sodium 144 mmol/L 139-145 Potassium 4.2 mmol/L 3.5-5.0 Chloride 108 mmol/L 101-111 Co2 Carbon Dioxide 29 mmol/L 22-32 Anion Gap 7 mmol/L 2-11 Glucose 96 mg/dL 70-100 Blood Urea Nitrogen 18 mg/dL 6-24 Creatinine 0.68 mg/dL 0.51-0.95 BUN/Creatinine Ratio 26.5 High 8-20 Calcium 9.4 mg/dL 8.6-10.3 Total Protein 6.7 g/dL 6.4-8.9 Albumin 4.2 g/dL 3.2-5.2 Globulin 2.5 g/dL 2-4 Albumin/Globulin Ratio 1.7 1-3 Total Bilirubin 0.30 mg/dL 0.2-1.0 Alkaline Phosphatase 62 U/L 34-104 Alt 16 U/L 7-52 Ast 14 U/L 13-39 Egfr Non- 89.2 >60 Egfr 114.7 >60 8 Laboratory test finding 03/08/2017 Uric Acid 5.0 mg/dL 2.3-6.6 9 CBC Auto Diff 03/08/2017 White Blood Count 6.8 10^3/uL 3.5-10.8 Red Blood Count 3.94 10^6/uL Low 4.0-5.4 Hemoglobin 13.4 g/dL 12.0-16.0 Hematocrit 40 % 35-47 Mean Corpuscular Volume 102 fL High 80-97 Mean Corpuscular Hemoglobin 34 pg High 27-31 Mean Corpuscular HGB Conc 33 g/dL 31-36 Red Cell Distribution Width 13 % 10.5-15 Platelet Count 293 10^3/uL 150-450 Mean Platelet Volume 9 um3 7.4-10.4 Abs Neutrophils 3.7 10^3/uL 1.5-7.7 Abs Lymphocytes 2.1 10^3/uL 1.0-4.8 Abs Monocytes 0.6 10^3/uL 0-0.8 Abs Eosinophils 0.3 10^3/uL 0-0.6 Abs Basophils 0.1 10^3/uL 0-0.2 Abs Nucleated RBC 0.01 10^3/uL Granulocyte % 54.3 % 38-83 Lymphocyte % 30.6 % 25-47 Monocyte % 9.3 % High 1-9 Eosinophil % 5.0 % 0-6 Basophil % 0.8 % 0-2 Nucleated Red Blood Cells % 0.1 Laboratory test finding 02/21/2017 Vitamin B12 283 pg/mL 180-914 10 Folate > 20.00 ng/mL >3.99 CBC Auto Diff 02/21/2017 White Blood Count 5.8 10^3/uL 3.5-10.8 Red Blood Count 4.01 10^6/uL 4.0-5.4 Hemoglobin 13.7 g/dL 12.0-16.0 Hematocrit 41 % 35-47 Mean Corpuscular Volume 102 fL High 80-97 Mean Corpuscular Hemoglobin 34 pg High 27-31 Mean Corpuscular HGB Conc 34 g/dL 31-36 Red Cell Distribution Width 13 % 10.5-15 Platelet Count 272 10^3/uL 150-450 Mean Platelet Volume 8 um3 7.4-10.4 Abs Neutrophils 3.0 10^3/uL 1.5-7.7 Abs Lymphocytes 1.9 10^3/uL 1.0-4.8 Abs Monocytes 0.4 10^3/uL 0-0.8 Abs Eosinophils 0.4 10^3/uL 0-0.6 Abs Basophils 0.1 10^3/uL 0-0.2 Abs Nucleated RBC 0.01 10^3/uL Granulocyte % 51.3 % 38-83 Lymphocyte % 32.9 % 25-47 Monocyte % 7.5 % 1-9 Eosinophil % 6.8 % High 0-6 Basophil % 1.5 % 0-2 Nucleated Red Blood Cells % 0.1 Laboratory test 02/21/2017 TSH (Thyroid Stimulating 2.94 mcIU/mL 0.34- 5.60 finding Horm) Lipid Profile 02/21/2017 Triglycerides 155 mg/dL 11 (Trig/Chol/HDL) Cholesterol 250 mg/dL 12 HDL Cholesterol 72.3 mg/dL 13 LDL Cholesterol 147 mg/dL 14 Laboratory test finding 02/21/2017 Hemoglobin A1c 5.9 % Less than 6.0 15 Comp Metabolic Panel 02/21/2017 Sodium 139 mmol/L 133-145 Potassium 4.1 mmol/L 3.5-5.0 Chloride 103 mmol/L 101-111 Co2 Carbon Dioxide 30 mmol/L 22-32 Anion Gap 6 mmol/L 2-11 Glucose 110 mg/dL High 70-100 Blood Urea Nitrogen 17 mg/dL 6-24 Creatinine 0.80 mg/dL 0.51-0.95 BUN/Creatinine Ratio 21.3 High 8-20 Calcium 9.6 mg/dL 8.6-10.3 Total Protein 7.2 g/dL 6.4-8.9 Albumin 4.3 g/dL 3.2-5.2 Globulin 2.9 g/dL 2-4 Albumin/Globulin Ratio 1.5 1-3 Total Bilirubin 0.50 mg/dL 0.2-1.0 Alkaline Phosphatase 61 U/L 34-104 Alt 12 U/L 7-52 Ast 14 U/L 13-39 Egfr Non- 74.2 >60 Egfr 95.4 >60 16 Laboratory test finding 02/21/2017 Magnesium 1.9 mg/dL 1.9-2.7 Lipid Profile (Trig/Chol/HDL) 11/10/2015 Triglycerides 158 mg/dL 17, 18 Cholesterol 248 mg/dL 17, 19 HDL Cholesterol 66.4 mg/dL 17, 20 LDL Cholesterol 150 mg/dL 17, 21 Laboratory test finding 11/10/2015 Hemoglobin A1c 5.7 % Less than 6.0 17 , 22 Comp Metabolic Panel 11/10/2015 Sodium 140 mmol/L 133-145 17 Potassium 4.1 mmol/L 3.5-5.0 17 Chloride 103 mmol/L 101-111 17 Co2 Carbon Dioxide 28 mmol/L 22-32 17 Anion Gap 9 mmol/L 2-11 17 Glucose 106 mg/dL High 70-100 17 Blood Urea Nitrogen 15 mg/dL 6-24 17 Creatinine 0.81 mg/dL 0.51-0.95 17 BUN/Creatinine Ratio 18.5 8-20 17 Calcium 9.7 mg/dL 8.6-10.3 17 Total Protein 7.1 g/dL 6.4-8.9 17 Albumin 4.3 g/dL 3.2-5.2 17 Globulin 2.8 g/dL 2-4 17 Albumin/Globulin Ratio 1.5 1-3 17 Total Bilirubin 0.50 mg/dL 0.2-1.0 17 Alkaline Phosphatase 60 U/L 34-104 17 Alt 23 U/L 7-52 17 Ast 22 U/L 13-39 17 Egfr Non- 73.4 >60 17 Egfr 94.4 >60 17, 23 CBC Auto Diff 11/10/2015 White Blood Count 5.5 10^3/uL 3.5-10.8 17 Red Blood Count 4.01 10^6/uL 4.0-5.4 17 Hemoglobin 14.3 g/dL 12.0-16.0 17 Hematocrit 43 % 35-47 17 Mean Corpuscular Volume 106 fL High 80-97 17, 24 Mean Corpuscular Hemoglobin 36 pg High 27-31 17 Mean Corpuscular HGB Conc 34 g/dL 31-36 17 Red Cell Distribution Width 13 % 10.5-15 17 Platelet Count 264 10^3/uL 150-450 17 Mean Platelet Volume 8 um3 7.4-10.4 17 Abs Neutrophils 2.6 10^3/uL 1.5-7.7 17 Abs Lymphocytes 1.6 10^3/uL 1.0-4.8 17 Abs Monocytes 0.4 10^3/uL 0-0.8 17 Abs Eosinophils 0.4 10^3/uL 0-0.6 17 Abs Basophils 0.4 10^3/uL High 0-0.2 17 Abs Nucleated RBC 0.01 10^3/uL 17 Granulocyte % 47.5 % 38-83 17 Lymphocyte % 29.9 % 25-47 17 Monocyte % 7.4 % 1-9 17 Eosinophil % 7.6 % High 0-6 17 Basophil % 7.6 % High 0-2 17 Nucleated Red Blood Cells % 0.1 17 Laboratory test finding 11/10/2015 Vitamin B12 315 pg/mL 180-914 17, 25 TSH (Thyroid Stimulating Horm) 4.66 ?IU/mL 0.34-5.60 17, 26 Protein Electrophoresis 11/10/2015 Total Protein(Pep) 7.2 g/dL 6.3 - 7.9 17 Albumin 3.3 g/dL 3.4-4.7 17 Alpha-1 Globulin 0.3 g/dL 0.1-0.3 17 Alpha-2 Globulin 1.3 g/dL 0.6-1.0 17 Beta Globulin 1.1 g/dL 0.7-1.2 17 Gamma Globulin 1.2 g/dL 0.6-1.6 17 Albumin/Globulin Ratio 0.86 17 Impression See Comment 17, 27 CBC Auto Diff 04/20/2015 White Blood Count 6.5 10^3/uL 4.8-10.8 Red Blood Count 3.86 10^6/uL Low 4.0-5.4 Hemoglobin 13.5 g/dL 12.0-16.0 Hematocrit 40 % 35-47 Mean Corpuscular Volume 104 fL High 80-97 Mean Corpuscular Hemoglobin 35 pg High 27-31 Mean Corpuscular HGB Conc 34 g/dL 31-36 Red Cell Distribution Width 13 % 10.5-15 Platelet Count 296 10^3/uL 150-450 Mean Platelet Volume 9 um3 7.4-10.4 Abs Neutrophils 3.7 10^3/uL 1.5-7.7 Abs Lymphocytes 1.7 10^3/uL 1.0-4.8 Abs Monocytes 0.6 10^3/uL 0-0.8 Abs Eosinophils 0.4 10^3/uL 0-0.6 Abs Basophils 0 10^3/uL 0-0.2 Abs Nucleated RBC 0.01 10^3/uL Granulocyte % 57.1 % 38-83 Lymphocyte % 26.5 % 25-47 Monocyte % 9.3 % High 1-9 Eosinophil % 6.4 % High 0-6 Basophil % 0.7 % 0-2 Nucleated Red Blood Cells % 0.1 Comp Metabolic Panel 04/20/2015 Sodium 140 mmol/L 133-145 Potassium 4.1 mmol/L 3.5-5.0 Chloride 104 mmol/L 101-111 Co2 Carbon Dioxide 30 mmol/L 22-32 Anion Gap 6 mmol/L 2-11 Glucose 117 mg/dL High 70-100 Blood Urea Nitrogen 14 mg/dL 6-24 Creatinine 0.74 mg/dL 0.51-0.95 BUN/Creatinine Ratio 18.9 8-20 Calcium 9.3 mg/dL 8.6-10.3 Total Protein 6.7 g/dL 6.4-8.9 Albumin 4.3 g/dL 3.2-5.2 Globulin 2.4 g/dL 2-4 Albumin/Globulin Ratio 1.8 1-3 Total Bilirubin 0.30 mg/dL 0.2-1.0 Alkaline Phosphatase 58 U/L 34-104 Alt 22 U/L 7-52 Ast 18 U/L 13-39 Egfr Non- 81.8 >60 Egfr 105.2 >60 28 Laboratory test finding 04/20/2015 Hemoglobin A1c 5.7 % Less than 6.0 29 Lipid Profile (Trig/Chol/HDL) 04/20/2015 Triglycerides 171 mg/dL 30 Cholesterol 220 mg/dL 31 HDL Cholesterol 60.1 mg/dL 32 LDL Cholesterol 126 mg/dL 33 Urine Microalbumin Random 04/20/2015 Ur Microalbumin (mg/L) 15.0 mg/L Urine Creatinine 168.11 mg/dL Urine Microalbumin/Creatinine 8.9 ug/mg <31 Laboratory test finding 10/01/2014 Cytology RUN DATE: 10/04/ <SEE NOTE> 34 Human Papilloma Virus Rna Negative Negative 35 Urine DIP 10/01/2014 Specific [place] 1.01 1.01-1.02 Urine pH 5 5-6 Leukocytes NEG Neg Urine Nitrites NEG Neg Total Protein, Urine NEG Neg Urine Glucose NORM Norm Urine Ketones NEG Neg Urobilinogen NORM Norm Urine Bilirubin NEG Neg Urine Blood NEG Neg CBC No Diff 09/25/2014 White Blood Count 6.5 10^3/uL 4.8-10.8 36 Red Blood Count 3.97 10^6/uL Low 4.0-5.4 36 Hemoglobin 13.6 g/dL 12.0-16.0 36 Hematocrit 41 % 35-47 36 Mean Corpuscular Volume 102 fL High 80-97 36 Mean Corpuscular Hemoglobin 34 pg High 27-31 36 Mean Corpuscular HGB Conc 34 g/dL 31-36 36 Red Cell Distribution Width 13 % 10.5-15 36 Platelet Count 317 10^3/uL 150-450 36 Mean Platelet Volume 8 um3 7.4-10.4 36 Comp Metabolic Panel 09/25/2014 Sodium 139 mmol/L 133-145 36 Potassium 4.1 mmol/L 3.5-5.0 36, 37 Chloride 105 mmol/L 101-111 36 Co2 Carbon Dioxide 27 mmol/L 22-32 36 Anion Gap 7 mmol/L 2-11 36 Glucose 122 mg/dL High 70-100 36 Blood Urea Nitrogen 15 mg/dL 6-24 36 Creatinine 0.71 mg/dL 0.51-0.95 36 BUN/Creatinine Ratio 21.1 High 8-20 36 Calcium 9.3 mg/dL 8.6-10.3 36 Total Protein 7.0 g/dL 6.4-8.9 36 Albumin 4.2 g/dL 3.2-5.2 36 Globulin 2.8 g/dL 2-4 36 Albumin/Globulin Ratio 1.5 1-3 36 Total Bilirubin 0.40 mg/dL 0.2-1.0 36 Alkaline Phosphatase 60 U/L 34-104 36 Alt 13 U/L 7-52 36 Ast 14 U/L 13-39 36 Egfr Non- 85.8 >60 36 Egfr 110.3 >60 36, 38 Lipid Profile (Trig/Chol/HDL) 09/25/2014 Triglycerides 90 mg/dL 36, 39 Cholesterol 217 mg/dL 36, 40 HDL Cholesterol 61.3 mg/dL 36, 41 LDL Cholesterol 138 mg/dL 36, 42 Laboratory test 09/25/2014 TSH (Thyroid 3.11 IU/mL 0.34-5.60 36, 43 finding Stimulating Horm) Hemoglobin A1c 5.8 % Less than 6.0 36, 44 Laboratory test finding 04/26/2014 Hemoglobin A1c 6.0 % Less than 6.0 36 , 45 Statin 04/26/2014 Ast 13 U/L 13-39 36, 46 Alt 15 U/L 7-52 36, 47 Lipid Profile (Trig/Chol/HDL) 04/26/2014 Triglycerides 106 mg/dL 36, 48 Cholesterol 197 mg/dL 36, 49 HDL Cholesterol 57.6 mg/dL 36, 50 LDL Cholesterol 118 mg/dL 36, 51 Vitamin D, 25 Hydroxy 12/10/2013 25-Hydroxy Vitamin D2 <4.0 ng/mL 25-Hydroxy Vitamin D3 40 ng/mL 25-Hydroxy Vitamin D Total 40 ng/mL 52 Laboratory test finding 12/10/2013 Hemoglobin A1c 5.8 % Less than 6.0 53 TSH (Thyroid Stimulating Horm) 2.99 miu/mL 0.34-5.60 54 Liver Function Panel 12/10/2013 Total Protein 7.3 g/dL 6.2-8.1 Albumin 3.9 g/dL 3.6-5.4 Globulin 3.4 g/dL 2-4 Albumin/Globulin Ratio 1.1 1-3 Total Bilirubin 0.8 mg/dL 0.4-1.5 Direct Bilirubin 0.1 mg/dL 0.1-0.5 Indirect Bilirubin 0.7 mg/dL 0.3-1.0 Alkaline Phosphatase 69 U/L 30-110 Alt 27 U/L 14-54 Ast 21 U/L 12-42 Lipid Profile (Trig/Chol/HDL) 12/10/2013 Triglycerides 115 mg/dL 40-200 Cholesterol 260 mg/dL High Less than 200 HDL Cholesterol 71 mg/dL High 40-60 55 Cholesterol/HDL Ratio 3.7 Average 1-4.44 LDL Cholesterol 166.0 High Less Than 100 56 Basic Metabolic Panel 12/10/2013 Sodium 140 mmol/L 133-145 Potassium 4.2 mmol/L 3.5-5.0 Chloride 103 mmol/L 101-111 Co2 Carbon Dioxide 28.0 mmol/L 22-32 Anion Gap 9.0 mmol/L 2-11 Glucose 109 mg/dL High 70-100 Blood Urea Nitrogen 16 mg/dL 6-24 Creatinine 0.70 mg/dL 0.50-1.40 BUN/Creatinine Ratio 22.9 High 8-20 Calcium 9.5 mg/dL 8.1-9.9 Egfr Non- 87.5 >60 Egfr 112.6 >60 57 CBC No Diff 12/10/2013 White Blood Count 5.9 10^3/uL 4.8-10.8 Red Blood Count 3.83 10^6/uL Low 4.0-5.4 Hemoglobin 13.5 g/dL 12.0-16.0 Hematocrit 39 % 35-47 Mean Corpuscular Volume 101 fL High 80-97 Mean Corpuscular Hemoglobin 35 pg High 27-31 Mean Corpuscular HGB Conc 35 g/dL 31-36 Red Cell Distribution Width 13 % 10.5-15 Platelet Count 285 10^3/uL 150-450 Mean Platelet Volume 8 um3 7.4-10.4 Urine Microalbumin Random 07/23/2013 Ur Microalbumin (mg/L) 18.0 mg/L 58 Urine Creatinine 150.5 mg/dL Urine Microalbumin/Creatinine 12.0 Less Than 31 Urine DIP 07/23/2013 Leukocytes NEG Neg Urine Nitrites NEG Neg Urine pH 5 5-6 Total Protein, Urine TRACE Neg Urine Glucose NORM Norm Urine Ketones NEG Neg Urobilinogen NORM Norm Urine Bilirubin NEG Neg Urine Blood NEG Neg Specific [place] N/A Low 1.01-1.02 CBC No Diff 07/18/2013 White Blood Count 6.2 10^3/uL 4.8-10.8 Red Blood Count 3.78 10^6/uL Low 4.0-5.4 Hemoglobin 13.2 g/dL 12.0-16.0 Hematocrit 38 % 35-47 Mean Corpuscular Volume 102 fL High 80-97 Mean Corpuscular Hemoglobin 35 pg High 27-31 Mean Corpuscular HGB Conc 35 g/dL 31-36 Red Cell Distribution Width 14 % 10.5-15 Platelet Count 316 10^3/uL 150-450 Mean Platelet Volume 8 um3 7.4-10.4 Basic Metabolic Panel 07/18/2013 Sodium 139 mmol/L 133-145 Potassium 4.3 mmol/L 3.5-5.0 Chloride 104 mmol/L 101-111 Co2 Carbon Dioxide 26.0 mmol/L 22-32 Anion Gap 9.0 mmol/L 2-11 Glucose 122 mg/dL High 70-100 Blood Urea Nitrogen 14 mg/dL 6-24 Creatinine 0.70 mg/dL 0.50-1.40 BUN/Creatinine Ratio 20.0 8-20 Calcium 9.2 mg/dL 8.1-9.9 Egfr Non- 87.9 >60 Egfr 113.0 >60 59 Lipid Profile (Trig/Chol/HDL) 07/18/2013 Triglycerides 88 mg/dL 40-200 Cholesterol 251 mg/dL High Less than 200 HDL Cholesterol 75 mg/dL High 40-60 60 Cholesterol/HDL Ratio 3.4 Average 1-4.44 LDL Cholesterol 158.4 High Less Than 100 61 Liver Function Panel 07/18/2013 Total Protein 6.5 g/dL 6.2-8.1 Albumin 3.7 g/dL 3.6-5.4 Globulin 2.8 g/dL 2-4 Albumin/Globulin Ratio 1.3 1-3 Total Bilirubin 0.6 mg/dL 0.4-1.5 Direct Bilirubin 0.1 mg/dL 0.1-0.5 Indirect Bilirubin 0.5 mg/dL 0.3-1.0 Alkaline Phosphatase 66 U/L 30-110 Alt 32 U/L 14-54 Ast 27 U/L 12-42 Laboratory test finding 07/18/2013 Hemoglobin A1c 6.0 % Less than 6.0 62 TSH (Thyroid Stimulating Horm) 2.82 miu/mL 0.34-5.60 Vitamin D, 25 Hydroxy 07/18/2013 25-Hydroxy Vitamin D2 <4.0 ng/mL 25-Hydroxy Vitamin D3 33 ng/mL 25-Hydroxy Vitamin D Total 33 ng/mL 63 Basic Metabolic Panel 11/28/2012 Sodium 140 mmol/L 133-145 Potassium 4.6 mmol/L 3.5-5.0 Chloride 103 mmol/L 101-111 Co2 Carbon Dioxide 28.0 mmol/L 22-32 Anion Gap 9.0 mmol/L 2-11 Glucose 103 mg/dL High 70-100 Blood Urea Nitrogen 13 mg/dL 6-24 Creatinine 0.80 mg/dL 0.50-1.40 BUN/Creatinine Ratio 16.3 8-20 Calcium 9.2 mg/dL 8.1-9.9 Egfr Non- 75.3 >60 Egfr 96.9 >60 64 Lipid Profile (Trig/Chol/HDL) 11/28/2012 Triglycerides 131 mg/dL 40-200 Cholesterol 245 mg/dL High Less than 200 HDL Cholesterol 79 mg/dL High 40-60 65 Cholesterol/HDL Ratio 3.1 Average 1-4.44 LDL Cholesterol 139.8 mg/dL High Less Than 100 66 Laboratory test finding 11/28/2012 Hemoglobin A1c 5.5 % Less than 6.0 67 Urine Microalbumin 09/03/2012 Ur Microalbumin (Mg/L) 11.0 mg/L 68 Random Urine Creatinine 93.9 mg/dL Urine Microalbumin/Creatinine 11.7 UG/MG Less Than 31 Laboratory test finding 07/10/2012 Hemoglobin A1c 5.6 % Less Than 6.0 69 BMP - Basic Metabolic Panel 07/10/2012 Sodium 139 mmol/L 135-145 Potassium 4.3 mmol/L 3.5-5.0 Chloride 103 mmol/L 101-111 Co2 (Carbon Dioxide) 28.0 mmol/L 22-32 Anion Gap 8.0 mmol/L 2-11 70 Glucose 101 mg/dL High 70-100 BUN 11 mg/dL 6-24 Creatinine 0.8 mg/dL 0.50-1.40 One Over Creatinine 1.25 BUN/Creatinine Ratio 13.8 8-20 Calcium 9.7 mg/dL 8.1-9.9 eGFR Non- 75.6 > 60 eGFR 97.3 > 60 71 Lipid Panel 07/10/2012 Triglyceride 125 mg/dL 40-200 Cholesterol 288 mg/dL High Less Than 200 72 High Density Lipoprotein 63 mg/dL High 40-60 73 Cholesterol/HDL Ratio 4.57 AVERAGE High 1-4.44 Low Density Lipoprotein 200 mg/dL High Less Than 100 74 Lipid Profile (Trig/Chol/HDL) 02/14/2012 Triglyceride 115 mg/dL 40-200 Cholesterol 250 mg/dL High Less Than 200 75 High Density Lipoprotein 64 mg/dL High 40-60 76 Cholesterol/HDL Ratio 3.91 AVERAGE 1-4.44 Low Density Lipoprotein 163 mg/dL High Less Than 100 77 Laboratory test 02/14/2012 Hemoglobin A1c 5.7 % Less Than 6.0 78 finding Surgical Pathology 11/28/2011 Surgical Pathology 79 - <SEE NOTE> CBC Auto Diff 11/27/2011 White Blood Count 6.2 CUMM 4.8-10.8 Red Cell Count 3.87 CUMM Low 4.2-5.4 Hemoglobin 13.1 g/dL 12.0-16.0 Hematocrit 38 % 35-47 Mean Corpuscular Volume 99 um3 High 79-97 Mean Corpuscular Hemoglob 34 pg High 27-31 Mean Corpuscular HGB Cone 34 g/dL 32-36 Redcell Distribution WDTH 14 % 10.5-15 Platelet Count 311 CUMM 150-450 Mean Platelet Volume 8.5 um3 7.4-10.4 Gran % 59.0 % 38-83 Lymph % 25.0 % 25-47 Mononuclear % 7.3 % 1-9 Eosinophil % 8.2 % High 0-6 Basophil % 0.5 % 0-2 Abs Lymphs 1.6 1.0-4.8 Abs Mononuclear 0.5 0-0.8 Absolute Neutrophil Count 3.7 1.5-7.7 Abs Eosinophils 0.5 0-0.6 Abs Basophils 0 0-0.2 Basic Metabolic Panel 11/27/2011 Sodium 139 mmol/L 135-145 Potassium 4.4 mmol/L 3.5-5.0 Chloride 104 mmol/L 101-111 Co2 (Carbon Dioxide) 28.0 mmol/L 22-32 Anion Gap 7.0 mmol/L 2-11 80 Glucose 114 mg/dL High 70-100 BUN 13 mg/dL 6-24 Creatinine 0.7 mg/dL 0.50-1.40 One Over Creatinine 1.42 BUN/Creatinine Ratio 18.6 8-20 Calcium 9.4 mg/dL 8.1-9.9 eGFR Non- 88.2 > 60 eGFR 113.5 > 60 81 Laboratory test finding 11/27/2011 TSH 4.37 MIU/ML 0.34-5.60 Liver Function Panel 11/27/2011 Total Protein 6.3 GM/DL 6.2-8.1 Albumin 3.7 GM/DL 3.6-5.4 Globulin 2.6 GM/DL 2-4 Albumin/Globulin Ratio 1.4 1-3 Bilirubin Total 0.7 mg/dL 0.4-1.5 82 Bilirubin Direct 0.1 mg/dL 0.1-0.5 Indirect Bilirubin 0.6 mg/dL 0.3-1.0 83 Alkaline Phosphatase 66 U/L 30-110 Alt (SGPT) 23 U/L 14-54 Ast (Sgot) 21 U/L 12-42 [place] [place] 11/27/2011 Hepatitis C Antibody Nonreactive Nonreactive Hepatitis A AB Igm Nonreactive Nonreactive Hepatitis B Core Igm Nonreactive Nonreactive Hepatitis B Surface Ag Nonreactive Nonreactive Laboratory test 10/17/2011 Culture <SEE 84 finding Sensitivity/Gram St NOTE> Laboratory test 09/19/2011 Cytology <SEE 85 finding NOTE> Urine DIP 09/19/2011 Leukocytes TRACE Neg Urine Nitrites NEG Neg Urine pH 7 High 5-6 Total Protein, Urine TRACE Neg Urine Glucose NORM Norm Urine Ketones NEG Neg Urobilinogen 1 High Norm Urine Bilirubin NEG Neg Urine Blood NEG Neg Specific [place] NA Low 1.01-1.02 Comp Metabolic Panel 09/11/2011 Sodium 138 mmol/L 135-145 Potassium 4.4 mmol/L 3.5-5.0 Chloride 102 mmol/L 101-111 Co2 (Carbon Dioxide) 28.0 mmol/L 22-32 Anion Gap 8.0 mmol/L 2-11 86 Glucose 136 mg/dL High 70-100 BUN 10 mg/dL 6-24 Creatinine 0.8 mg/dL 0.50-1.40 One Over Creatinine 1.25 BUN/Creatinine Ratio 12.5 8-20 Calcium 9.1 mg/dL 8.1-9.9 Total Protein 6.2 GM/DL 6.2-8.1 Albumin 3.7 GM/DL 3.6-5.4 Globulin 2.5 GM/DL 2-4 Albumin/Globulin Ratio 1.5 1-3 Bilirubin Total 0.8 mg/dL 0.4-1.5 87 Alkaline Phosphatase 75 U/L 30-110 Alt (SGPT) 61 U/L High 14-54 Ast (Sgot) 58 U/L High 12-42 eGFR Non- 75.6 > 60 eGFR 97.3 > 60 88 Laboratory test finding 09/11/2011 Hemoglobin A1c 6.3 % High Less Than 6.0 89 CBC Auto Diff 09/11/2011 White Blood Count 8.0 CUMM 4.8-10.8 Red Cell Count 3.87 CUMM Low 4.2-5.4 Hemoglobin 13.8 g/dL 12.0-16.0 Hematocrit 40 % 35-47 Mean Corpuscular Volume 104 um3 High 79-97 Mean Corpuscular Hemoglob 36 pg High 27-31 Mean Corpuscular HGB Cone 34 g/dL 32-36 Redcell Distribution WDTH 14 % 10.5-15 Platelet Count 288 CUMM 150-450 Mean Platelet Volume 8.8 um3 7.4-10.4 Gran % 70.4 % 38-83 Lymph % 16.8 % Low 25-47 Mononuclear % 5.6 % 1-9 Eosinophil % 6.9 % High 0-6 Basophil % 0.3 % 0-2 Abs Lymphs 1.4 1.0-4.8 Abs Mononuclear 0.4 0-0.8 Absolute Neutrophil Count 5.7 1.5-7.7 Abs Eosinophils 0.6 0-0.6 Abs Basophils 0 0-0.2 90 Lipid Profile (Trig/Chol/HDL) 09/11/2011 Triglyceride 93 mg/dL 40-200 Cholesterol 210 mg/dL High Less Than 200 91 High Density Lipoprotein 62 mg/dL High 40-60 92 Cholesterol/HDL Ratio 3.39 AVERAGE 1-4.44 Low Density Lipoprotein 129 mg/dL High Less Than 100 93 Comp Metabolic Panel 01/11/2009 Sodium 141 mmol/L 135-145 36 Potassium 4.3 mmol/L 3.5-5.0 36 Chloride 105 mmol/L 101-111 36 Co2 (Carbon Dioxide) 26.0 mmol/L 22-32 36 Anion Gap 10.0 mmol/L 2-11 36, 94 Glucose 116 mg/dL High 70-100 36, 95 BUN 16 mg/dL 6-24 36 Creatinine 0.80 mg/dL 0.50-1.40 36 One Over Creatinine 1.20 36 BUN/Creatinine Ratio 20.0 8-20 36 Calcium 9.3 mg/dL 8.1-9.9 36, 96 Total Protein 6.6 GM/DL 6.2-8.1 36 Albumin 3.6 GM/DL 3.6-5.4 36 Globulin 3.0 GM/DL 2-4 36 Albumin/Globulin Ratio 1.2 1-3 36 Bilirubin Total 1.2 mg/dL 0.4-1.5 36 Alkaline Phosphatase 67 U/L 30-110 36 Alt (SGPT) 35 U/L 14-54 36 Ast (Sgot) 33 U/L 12-42 36 Laboratory test finding 01/11/2009 Hemoglobin A1c 6.2 % High <6.0 36, 97 Lipid Profile (Trig/Chol/HDL) 01/11/2009 Triglyceride 123 mg/dL 40-200 36 Cholesterol 265 mg/dL High Less Than 200 36, 98 High Density Lipoprotein 70 mg/dL High 40-60 36, 99 Cholesterol/HDL Ratio 3.79 AVERAGE 1-4.44 36 Low Density Lipoprotein 170 mg/dL High Less Than 100 36, 100 Laboratory test finding 01/11/2009 TSH 3.96 MIU/ML 0.34-5.60 36 CBC With Electronic Diff 01/11/2009 White Blood Count 6.7 CUMM 4.8-10.8 36 Red Cell Count 3.90 CUMM Low 4.2-5.4 36 Hemoglobin 13.5 g/dL 12.0-16.0 36 Hematocrit 39 % 35-47 36 Mean Corpuscular Volume 100 um3 High 79-97 36 Mean Corpuscular Hemoglob 35 pg High 27-31 36 Mean Corpuscular HGB Cone 35 g/dL 32-36 36 Redcell Distribution WDTH 13 % 10.5-15 36 Platelet Count 315 CUMM 150-450 36 Mean Platelet Volume 7.8 um3 7.4-10.4 36 Gran % 57.3 % 38-83 36 Lymph % 26.8 % 25-47 36 Mononuclear % 9.3 % High 1-9 36 Eosinophil % 5.9 % 0-6 36 Basophil % 0.7 % 0-2 36 Abs Lymphs 1.8 1.0-4.8 36 Abs Mononuclear 0.6 0-0.8 36 Absolute Neutrophil Count 3.8 1.5-7.7 36 Abs Eosinophils 0.4 0-0.6 36 Abs Basophils 0 0-0.2 36 Urine DIP 12/24/2008 Leukocytes neg Neg Urine Nitrites neg Neg Urine pH 5 5-6 Total Protein, Urine neg Neg Urine Glucose norm Norm Urine Ketones neg Neg Urobilinogen norm Norm Urine Bilirubin neg Neg Urine Blood neg Neg Specific [place] n/a Low 1.01-1.02 Laboratory test 07/28/2007 Cytology <SEE 101 finding NOTE> Cytology 04/22/2006 Cytology Run: 04/26/06 10 <SEE 102 NOTE> Basic Metabolic 04/19/2006 One Over Creatinine 1.11 Panel Anion Gap 8.0 mmol/L 2-11 103 BUN 12 mg/dL 6-24 Calcium 9.3 mg/dL 8.7-10.2 Chloride 107 mmol/L 101-111 Co2 (Carbon Dioxide) 23.0 mmol/L 22-32 Glucose 127 mg/dL High 70-105 Potassium 4.4 mmol/L 3.5-5.0 Sodium 138 mmol/L 135-145 BUN/Creatinine Ratio 13.3 8-20 Creatinine 0.9 mg/dL 0.5-1.4 Laboratory test finding 04/19/2006 Hemoglobin A1c 5.4 % <6.0 104 Urine DIP 04/19/2006 Leukocytes NEG Neg Urine Nitrites NEG Neg Urine pH 5 5-6 Total Protein, Urine NL Neg Urine Glucose NL Norm Urine Ketones NL Neg Urobilinogen NL Norm Urine Bilirubin NL Neg Urine Blood NL Neg Specific [place] N/A Low 1.01-1.02 Laboratory test finding 12/29/2004 Thin Layer Pap W/Reflex REC'D-SEE IMAGE To HPV For ASCUS Urine DIP 12/29/2004 Leukocytes NEG Neg Urine Nitrites NEG Neg Urine pH 5 5-6 Total Protein, Urine NEG Neg Urine Glucose NORM Norm Urine Ketones NEG Neg Urobolinogen NORM Norm Urine Bilirubin NEG Neg Urine Blood NEG Neg Specific [place] NA Low 1.01-1.02 CBC With Manual Diff 01/24/2004 Atypical Lymph 6 % 0-6 Anisocytosis SLIGHT Band Neutrophil 3 % 0-8 Eosenophil 3 % 0-6 Lymphocyte 26 % 5-47 Macrocytosis SLIGHT Monocyte 7 % 0-13 Polychromasia SLIGHT Polysegmented Neutrophil 55 % 38-83 CBC With Electronic Diff 01/24/2004 Platelet Count 290 CUMM 150-450 White Blood Count 7.8 CUMM 4.8-10.8 Hematocrit 37 % 35-47 Hemoglobin 12.8 g/dL 12.0-16.0 Mean Corpuscular HGB Cone 34 g/dL 32-36 Mean Corpuscular Hemoglob 34 pg High 27-31 Mean Corpuscular Volume 99 um3 High 79-97 Mean Platelet Volume 8.3 um3 7.4-10.4 Red Cell Count 3.75 CUMM Low 4.2-5.4 Redcell Distribution WDTH 12 % 10.5-15 Comp Metabolic Panel 01/24/2004 Anion Gap 7.0 mmol/L 2-11 105 Albumin/Globulin Ratio 1.3 1-3 Albumin 3.8 GM/DL 3.6-5.4 BUN 13 mg/dL 6-24 Calcium 9.3 mg/dL 8.7-10.2 Chloride 105 mmol/L 101-111 Co2 (Carbon Dioxide) 27.0 mmol/L 22-32 Creatinine 0.9 mg/dL 0.5-1.4 Globulin 2.9 GM/DL 2-4 Glucose 90 mg/dL 70-105 Potassium 3.9 mmol/L 3.5-5.0 Sodium 139 mmol/L 135-145 Total Protein 6.7 GM/DL 6.2-8.1 BUN/Creatinine Ratio 14.4 8-20 Alkaline Phosphatase 68 U/L 30-110 Alt (SGPT) 42 U/L 14-54 Ast (Sgot) 27 U/L 12-42 Bilirubin Total 0.7 mg/dL 0.4-1.5 Laboratory test finding 01/24/2004 TSH 2.37 MIU/ML 0.34-5.60 Laboratory test finding 12/07/2003 Thin Layer Pap REC'D-SEE IMAGE W/Reflex To HPV For ASCUS CBC With Electronic 12/07/2003 Platelet Count 339 CUMM 150-450 Diff White Blood Count 6.7 CUMM 4.8-10.8 Abs Basophils 0 0-0.2 Abs Eosinophils 0.3 0-0.6 Abs Grans 4.2 1.5-7.7 Abs Lymphs 1.7 1.0-4.8 Abs Mononuclear 0.5 0-0.8 Basophil % 0.1 % 0-2 Hematocrit 38 % 35-47 Hemoglobin 13.2 g/dL 12.0-16.0 Eosinophil % 5.0 % 0-6 Gran % 61.4 % 38-83 Lymph % 25.5 % 20-45 Mean Corpuscular HGB Cone 35 g/dL 32-36 Mean Corpuscular Hemoglob 34 pg High 27-31 Mean Corpuscular Volume 99 um3 High 79-97 Mean Platelet Volume 8.5 um3 7.4-10.4 Mononuclear % 8.0 % 1-9 Red Cell Count 3.85 CUMM Low 4.2-5.4 Redcell Distribution WDTH 12 % 10.5-15 Laboratory test finding 12/07/2003 Hemoglobin 13.3 Urine DIP 12/07/2003 Leukocytes NEG Neg Urine Nitrites NEG Neg Urine pH 5 5-6 Total Protein, Urine NEG Neg Urine Glucose NORM Norm Urine Ketones NEG Neg Urobolinogen NORM Norm Urine Bilirubin NEG Neg Urine Blood NEG Neg Lipid Profile 12/07/2003 Cholesterol/HDL Ratio 3.84 AVERAGE 1-4.44 (Trig/Chol/HDL) Cholesterol 192 mg/dL Less Than 200 106 Triglyceride 110 mg/dL 40-200 High Density Lipoprotein 50 mg/dL 40-60 Low Density Lipoprotein 120 mg/dL High Less Than 100 107 CBC 09/18/2002 WBC 8.4 x10*3 4.3 - 10.9 RBC 4.07 x10*6 3.8 - 5.3 Hemoglobin 13.6 g/dL 11.8 - 15.8 Hematocrit 40.5 % 35.0 - 47.0 MCV 99.6 fl High 82.0 - 98.0 MCH 33.5 pg 27.5 - 33.5 MCHC 33.6 g/dL 32.0 - 36.0 RDW 12.6 % 11.5 - 14.5 Platelet Count 328 x10*3 130.0 - 400.0 MPV 8.7 fl 6.5 - 10.5 Lymphocytes 23.7 % 15.0 - 45.0 Monocytes 6.6 % 2.0 - 13.0 Eosinophils 3.5 % 0.0 - 6.0 Basophils 0.4 % 0.0 - 2.0 Neutrophil Absolute 5.5 x10*3 1.4 - 7.0 Lymphocytes Absolute 2.0 x10*3 1.0 - 3.4 Monocyte Absolute 0.6 x10*3 0.2 - 1.0 Eosinophil Absolute 0.3 x10*3 0.0 - 0.5 Basophil Absolute 0.0 x10*3 0.0 - 0.2 Lipid Profile 09/18/2002 Triglycerides 84 mg/dL 37.0 - 241.0 Cholesterol, Total 186 mg/dL 120.0 - 200.0 108 HDL Cholesterol 58 mg/dL 35.0 - 9999.0 LDL Cholesterol 111 mg/dL 109 LDL/HDL Cholesterol 1.9 110 Chol/HDL Cholesterol 3.2 111 Laboratory test finding 09/18/2002 TSH (Baseline) 1.74 uIU/ml 0.2 - 5.4 Laboratory test finding 09/18/2002 Pap Smear REC'D-SEE IMAGE Urine DIP 09/18/2002 Leukocytes NEG Neg Urine Nitrites NEG Neg Urine pH 6 5-6 Total Protein, Urine NEG Neg Urine Glucose NORM Norm Urine Ketones NEG Neg Urobolinogen NORM Norm Urine Bilirubin NEG Neg Urine Blood NEG Neg Laboratory test finding 09/18/2002 Hemoglobin 11.2 1 SEE RESULT BELOW Name: KINJAL DUVAL : [address]: Reba Brito MD Acct: [id number] Unit: [id number] AGE: 57 Location: [facility] Re02/28/18 SEX: F Status: REG REF SPEC: [id number] JACQUI: 02/28/18-1114 [facility] DR: Reba Brito MD REQ: [id number] RECD: 02/28/18 STATUS: SOUT _ ORDERED: TP IMAGE ANAL, HPV/Thin Prep COMMENTS: [id number] Negative for Intraepithelial lesion or Malignancy A. Ectocervical/Endocervical Specimen Adequacy: Satisfactory of evaluation Transformation zone component identified Patient Information: HPV: High risk HPV RNA testing regardless of pap results. HPV 16/18 Genotype Reflex Actual Specimen Date: 02/28/18 Date Time Test Result Flag (u) Normal Range 02/28/18 1114 @ HPV RNA RFLX GE Negative Negative @ @ The high-risk HPV types detected by the assay include: 16, @ 18, 31, 33, 35, 39, 45, 51, 52, 56, 58, 59, 66, and 68. Signed (signature on file) AMY Mendoza (ASCP) 03/03 2020 This Pap test was evaluated with the assistance of the [employer] Test Imaging System. Due to cytologic findings at the chiropractic doctor microscope, comprehensive manual rescreening by a Log Pond Worker may be required. The Pap Smear is a screening test designed to aid in the detection of premalignant and malignant conditions of the uterine cervix. It is not a diagnostic procedure and should not be used as the sole means of detecting cervical cancer. Both false- positive and false- negative reports do occur. Depending on your risk status, a Pap smear should be obtained and evaluated every 1-3 years. END OF REPORT DEPARTMENT OF PATHOLOGY, [address] [place] [address] Abdulaziz Kohli M.D. Director [facility] # [id number] 2 Therapeutic target for the treatment of diabetes mellitus patients is <7% HBA1C, and in selective patients <6.0%. Please refer to [place] [employer] diabetic care guidelines for further information. 3 Normal Range 180 to 914 Indeterminate Range 145 to 180 Deficient Range <145 4 Desirable: <150 Borderline High: 150-199 High: 200-499 Very High: >500 5 Desirable: <200 Borderline High: 200-239 High: >239 6 Low: <40 Desirable: 40-60 High: >60 7 Desirable: <100 Near Optimal: 100-129 Borderline High: 130-159 High: 160-189 Very High: >189 8 Because ethnic data is not always readily available, this report includes an eGFR for both -Americans and non- Americans. The National Kidney Disease Education Program (NKDEP) does not endorse the use of the MDRD equation for patients that are not between the ages of 18 and 70, are , have extremes of body size, muscle mass, or nutritional status, or are non- or non-. According to the National Kidney Foundation, irrespective of diagnosis, the stage of the disease is based on the level of kidney function: Stage Description GFR(mL/min/1.73 m(2)) 1 Kidney damage with normal or decreased GFR 90 2 Kidney damage with mild decrease in GFR 60-89 3 Moderate decrease in GFR 30-59 4 Severe decrease in GFR 15-29 5 Kidney failure <15 (or dialysis) 9 [id number] Normal Range 180 to 914 Indeterminate Range 145 to 180 Deficient Range <145 11 Desirable <150 Borderline high 150-199 High 200-499 Very High >500 12 Desirable <200 Borderline high 200-239 High >239 13 Low <40 Desirable: 40-60 High: >60 14 Desirable: <100 mg/dL Near Optimal: 100-129 mg/dL Borderline High: 130-159 mg/dL High: 160-189 mg/dL Very High: >189 mg/dL 15 Therapeutic target for the treatment of diabetes Mellitus patients is <7% HBA1C, and in selective patients <6.0%.Please refer to [place] [employer] Diabetic care guidelines for further information. 16 Because ethnic data is not always readily available, this report includes an eGFR for both -Americans and non- Americans. The National Kidney Disease Education Program (NKDEP) does not endorse the use of the MDRD equation for patients that are not between the ages of 18 and 70, are , have extremes of body size, muscle mass, or nutritional status, or are non- or non-. According to the National Kidney Foundation, irrespective of diagnosis, the stage of the disease is based on the level of kidney function: Stage Description GFR(mL/min/1.73 m(2)) 1 Kidney damage with normal or decreased GFR 90 2 Kidney damage with mild decrease in GFR 60-89 3 Moderate decrease in GFR 30-59 4 Severe decrease in GFR 15-29 5 Kidney failure <15 (or dialysis) 17 PT IS FASTING 18 Desirable <150 Borderline high 150-199 High 200-499 Very High >500 19 Desirable <200 Borderline high 200-239 High >239 20 Low <40 Desirable: 40-60 High: >60 21 Desirable: <100 mg/dL Near Optimal: 100-129 mg/dL Borderline High: 130-159 mg/dL High: 160-189 mg/dL Very High: >189 mg/dL 22 Therapeutic target for the treatment of diabetes Mellitus patients is <7% HBA1C, and in selective patients <6.0%.Please refer to [place] [employer] Diabetic care guidelines for further information. 23 Because ethnic data is not always readily available, this report includes an eGFR for both -Americans and non- Americans. The National Kidney Disease Education Program (NKDEP) does not endorse the use of the MDRD equation for patients that are not between the ages of 18 and 70, are , have extremes of body size, muscle mass, or nutritional status, or are non- or non-. According to the National Kidney Foundation, irrespective of diagnosis, the stage of the disease is based on the level of kidney function: Stage Description GFR(mL/min/1.73 m(2)) 1 Kidney damage with normal or decreased GFR 90 2 Kidney damage with mild decrease in GFR 60-89 3 Moderate decrease in GFR 30-59 4 Severe decrease in GFR 15-29 5 Kidney failure <15 (or dialysis) 24 Adult MCV greater than 105 fl incubated 1/2 hr at 37c without significant change. 25 Normal Range 180 to 914 Indeterminate Range 145 to 180 Deficient Range <145 26 PT IS FASTING 27 RESULT: No apparent monoclonal protein on serum electrophoresis. Test Performed by: [facility] [place] [address] Nurse Prn: Martita Iverson II, M.D., Ph.D. 28 Because ethnic data is not always readily available, this report includes an eGFR for both -Americans and non- Americans. The National Kidney Disease Education Program (NKDEP) does not endorse the use of the MDRD equation for patients that are not between the ages of 18 and 70, are , have extremes of body size, muscle mass, or nutritional status, or are non- or non-. According to the National Kidney Foundation, irrespective of diagnosis, the stage of the disease is based on the level of kidney function: Stage Description GFR(mL/min/1.73 m(2)) 1 Kidney damage with normal or decreased GFR 90 2 Kidney damage with mild decrease in GFR 60-89 3 Moderate decrease in GFR 30-59 4 Severe decrease in GFR 15-29 5 Kidney failure <15 (or dialysis) 29 Therapeutic target for the treatment of diabetes Mellitus patients is <7% HBA1C, and in selective patients <6.0%.Please refer to [place] [employer] Diabetic care guidelines for further information. 30 Desirable <150 Borderline high 150-199 High 200-499 Very High >500 31 Desirable <200 Borderline high 200-239 High >239 32 Low <40 Desirable: 40-60 High: >60 33 Desirable: <100 mg/dL Near Optimal: 100-129 mg/dL Borderline High: 130-159 mg/dL High: 160-189 mg/dL Very High: >189 mg/dL 34 RUN DATE: 10/04/14 [facility] LAB LIVE PAGE 1 RUN TIME: [address] [place], [place] [address] Specimen Inquiry Name: KINJAL DUVAL : [address]: Joan Farris NP Acct: [id number] Unit: [id number] AGE: 54 Location: [facility] Re10/01/14 SEX: F Status: REG REF SPEC: [id number] JACQUI: 10/01/14-[address]: Joan Farris NP REQ: [id number] RECD: 10/01/14-5 STATUS: SOUT _ ORDERED: IMAGE ANALYSIS, HPV/Thin Prep FINAL DIAGNOSIS Negative for Intraepithelial lesion or Malignancy HPV Result: Negative Normal Range: Negative The high-risk HPV types detected by the assay include: 16, 18, 31, 33, 35, 39, 45, 51, 52, 56, 58, 59, 66, and 68. A. Ectocervical/Endocervical Specimen Adequacy: Satisfactory of evaluation Transformation zone component identified Patient Information: HPV: High risk HPV RNA testing regardless of pap results. Actual Specimen Date: 10/01/14 ?: N Post Menopausal?: Y Hysterectomy?: N Signed (signature on file) AMY Nielson (ASCP) 10/04/14 8920 This Pap test was evaluated with the assistance of the ThinPrep Test Imaging System. Due to cytologic findings at the chiropractic doctor microscope, comprehensive manual rescreening by a Log Pond Worker may be required. The Pap Smear is a screening test designed to aid in the detection of premalignant and malignant conditions of the uterine cervix. It is not a diagnostic procedure and should not be used as the sole means of detecting cervical cancer. Both false- positive and false- negative reports do occur. Depending on your risk status, a Pap smear shoudl be obtained and evaluated every 1-3 years. END OF REPORT * ML=Testing performed at Main Lab DEPARTMENT OF PATHOLOGY, [address] [place] [address] Abdulaziz Kohli M.D. Director [facility] # [id number] 35 The high-risk HPV types detected by the assay include: 16, 18, 31, 33, 35, 39, 45, 51, 52, 56, 58, 59, 66, and 68. 36 FASTING 37 Potassium reference range changed effective 09/19/14 38 Because ethnic data is not always readily available, this report includes an eGFR for both -Americans and non- Americans. The National Kidney Disease Education Program (NKDEP) does not endorse the use of the MDRD equation for patients that are not between the ages of 18 and 70, are , have extremes of body size, muscle mass, or nutritional status, or are non- or non-. According to the National Kidney Foundation, irrespective of diagnosis, the stage of the disease is based on the level of kidney function: Stage Description GFR(mL/min/1.73 m(2)) 1 Kidney damage with normal or decreased GFR 90 2 Kidney damage with mild decrease in GFR 60-89 3 Moderate decrease in GFR 30-59 4 Severe decrease in GFR 15-29 5 Kidney failure <15 (or dialysis) 39 Desirable <150 Borderline high 150-199 High 200-499 Very High >500 40 Desirable <200 Borderline high 200-239 High >239 41 Low <40 Desirable: 40-60 High: >60 42 Desirable <100 Near Optimal 100-129 Borderline high 130-159 High 160-189 Very High >189 43 FASTING 44 Therapeutic target for the treatment of diabetes Mellitus patients is <7% HBA1C, and in selective patients <6.0%.Please refer to [place] [employer] Diabetic care guidelines for further information. 45 Therapeutic target for the treatment of diabetes Mellitus patients is <7% HBA1C, and in selective patients <6.0%.Please refer to [place] [employer] Diabetic care guidelines for further information. 46 FASTING 47 FASTING 48 Desirable <150 Borderline high 150-199 High 200-499 Very High >500 49 Desirable <200 Borderline high 200-239 High >239 50 Low <40 Desirable: 40-60 High: >60 51 Desirable <100 Near Optimal 100-129 Borderline high 130-159 High 160-189 Very High >189 52 -- REFERENCE VALUE -- 25-HYDROXY D TOTAL (D2+D3) Optimum levels in the healthy population are 20-50, patients with bone disease may benefit from higher levels within this range. Test Performed by: [address] [address] Nurse Prn: Daniel Penaloza III, M.D. 53 Therapeutic target for the treatment of diabetes Mellitus patients is <7% HBA1C, and in selective patients <6.0%.Please refer to [place] [employer] Diabetic care guidelines for further information. 54 FASTING 55 HDL Interpretation: Undesirable: High Risk: Less than 40 mg/dL Desirable: Low Risk: Greater than 60 mg/dL 56 LDL Interpretation: Low Risk Optimal Level: LDL Less than 100 mg/dL Near or Above Optimal: LDL 100-129 mg/dL Borderline High Risk: LDL 130-159 mg/dL High Risk: LDL 160-189 mg/dL Very High Risk: LDL Greater than 189 mg/dL 57 Because ethnic data is not always readily available, this report includes an eGFR for both -Americans and non- Americans. The National Kidney Disease Education Program (NKDEP) does not endorse the use of the MDRD equation for patients that are not between the ages of 18 and 70, are , have extremes of body size, muscle mass, or nutritional status, or are non- or non-. According to the National Kidney Foundation, irrespective of diagnosis, the stage of the disease is based on the level of kidney function: Stage Description GFR(mL/min/1.73 m(2)) 1 Kidney damage with normal or decreased GFR 90 2 Kidney damage with mild decrease in GFR 60-89 3 Moderate decrease in GFR 30-59 4 Severe decrease in GFR 15-29 5 Kidney failure <15 (or dialysis) 58 Microalbuminuria in a random sample is defined as: Microalbumin/Creatinine ratio of 30-299 ug/mg. 59 Because ethnic data is not always readily available, this report includes an eGFR for both -Americans and non- Americans. The National Kidney Disease Education Program (NKDEP) does not endorse the use of the MDRD equation for patients that are not between the ages of 18 and 70, are , have extremes of body size, muscle mass, or nutritional status, or are non- or non-. According to the National Kidney Foundation, irrespective of diagnosis, the stage of the disease is based on the level of kidney function: Stage Description GFR(mL/min/1.73 m(2)) 1 Kidney damage with normal or decreased GFR 90 2 Kidney damage with mild decrease in GFR 60-89 3 Moderate decrease in GFR 30-59 4 Severe decrease in GFR 15-29 5 Kidney failure <15 (or dialysis) 60 HDL Interpretation: Undesirable: High Risk: Less than 40 mg/dL Desirable: Low Risk: Greater than 60 mg/dL 61 LDL Interpretation: Low Risk Optimal Level: LDL Less than 100 mg/dL Near or Above Optimal: LDL 100-129 mg/dL Borderline High Risk: LDL 130-159 mg/dL High Risk: LDL 160-189 mg/dL Very High Risk: LDL Greater than 189 mg/dL 62 Therapeutic target for the treatment of diabetes Mellitus patients is <7% HBA1C, and in selective patients <6.0%.Please refer to [place] Diabetes [employer] Diabetic care guidelines for further information. 63 -- REFERENCE VALUE -- 25-HYDROXY D TOTAL (D2+D3) Optimum levels in the normal population are 25-80 Test Performed by: [address] [address] Nurse Prn: Daniel Penaloza III, M.D. 64 Because ethnic data is not always readily available, this report includes an eGFR for both -Americans and non- Americans. The National Kidney Disease Education Program (NKDEP) does not endorse the use of the MDRD equation for patients that are not between the ages of 18 and 70, are , have extremes of body size, muscle mass, or nutritional status, or are non- or non-. According to the National Kidney Foundation, irrespective of diagnosis, the stage of the disease is based on the level of kidney function: Stage Description GFR(mL/min/1.73 m(2)) 1 Kidney damage with normal or decreased GFR 90 2 Kidney damage with mild decrease in GFR 60-89 3 Moderate decrease in GFR 30-59 4 Severe decrease in GFR 15-29 5 Kidney failure <15 (or dialysis) 65 HDL Interpretation: Undesirable: High Risk: Less than 40 MG/DL Desirable: Low Risk: Greater than 60 MG/DL 66 LDL Interpretation: Low Risk Optimal Level: LDL Less than 100 MG/DL Near or Above Optimal: LDL 100-129 MG/DL Borderline High Risk: LDL 130-159 MG/DL High Risk: LDL 160-189 MG/DL Very High Risk: LDL Greater than 189 MG/DL 67 Therapeutic target for the treatment of diabetes Mellitus patients is <7% HBA1C, and in selective patients <6.0%.Please refer to [place] [employer] Association Diabetic care guidelines for further information. 68 Microalbuminuria in a random sample is defined as: Microalbumin/Creatinine ratio of 30-299 ug/mg. 69 THERAPEUTIC TARGET FOR THE TREATMENT OF DIABETES MELLITUS PATIENTS IS <7% HBA1C, AND IN SELECTIVE PATIENTS <6.0%. PLEASE REFER TO [place]OC[employer]ATION DIABETIC CARE GUIDELINES FOR FURTHER INFORMATION. 70 Anion gap measurement may be of limited value in the presence of any alkalosis, especially in a combined acid base disorder. . 71 Because ethnic data is not always readily available, this report includes an eGFR for both -Americans and non- Americans. The National Kidney Disease Education Program (NKDEP) does not endorse the use of the MDRD equation for patients that are not between the ages of 18 and 70, are , have extremes of body size, muscle mass, or nutritional status, or are non- or non-. According to the National Kidney Foundation, irrespective of diagnosis, the stage of the disease is based on the level of kidney function: Stage Description GFR(mL/min/1.73 m(2)) 1 Kidney damage with normal or decreased GFR 90 2 Kidney damage with mild decrease in GFR 60-89 3 Moderate decrease in GFR 30-59 4 Severe decrease in GFR 15-29 5 Kidney failure <15 (or dialysis) 72 CHOLESTEROL INTERPRETATION: Desirable: Less than 200 MG/DL Borderline-High Risk: 200-239 MG/DL High-Risk: 240 MG/DL and over 73 HDL INTERPRETATION: Undesirable: High Risk: Less than 40 MG/DL Desirable: Low Risk: Greater than 60 MG/DL 74 LDL INTERPRETATION: Low Risk Optimal Level: LDL Less than 100 MG/DL Near or Above Optimal: LDL 100-129 MG/DL Borderline High Risk: LDL 130-159 MG/DL High Risk: LDL 160-189 MG/DL Very High Risk: LDL Greater than 189 MG/DL 75 CHOLESTEROL INTERPRETATION: Desirable: Less than 200 MG/DL Borderline-High Risk: 200-239 MG/DL High-Risk: 240 MG/DL and over 76 HDL INTERPRETATION: Undesirable: High Risk: Less than 40 MG/DL Desirable: Low Risk: Greater than 60 MG/DL 77 LDL INTERPRETATION: Low Risk Optimal Level: LDL Less than 100 MG/DL Near or Above Optimal: LDL 100-129 MG/DL Borderline High Risk: LDL 130-159 MG/DL High Risk: LDL 160-189 MG/DL Very High Risk: LDL Greater than 189 MG/DL 78 THERAPEUTIC TARGET FOR THE TREATMENT OF DIABETES MELLITUS PATIENTS IS <7% HBA1C, AND IN SELECTIVE PATIENTS <6.0%. PLEASE REFER TO [place] DIAB[employer] ASSOCIATION DIABETIC CARE GUIDELINES FOR FURTHER INFORMATION. 79 ---- RUN DATE: 11/29/11 [facility] NMI LIVE PAGE 1 RUN TIME: 1502 Specimen Inquiry RUN USER: INTERFACE -- Name: KINJAL DUVAL Acctabatha#: [id number] Status: REG REF Re11/28/11 Age/Sex: 51/F Unit#: [id number] Location: [facility]. : 60 -- Specimen: [id number] SOUT Spec Date: 11/28/[address]: Zachary hu MD Spec Type: SURGICAL P Received: 11/28/11-7193 Copies to: Tammy Osei MD SPECIMEN BIOPSY DESCENDING COLON HISTORY POST-OP DIAGNOSIS: Colonoscopy into cecum, prep good; small descending co lcon polyp; mild sigmoid diverticulosis CLINICAL INFORMATION: Screening colonoscopy GROSS DESCRIPTION The specimen is received in formalin labelled Kinjal Duval, Descending Colon Biopsy, and consists of a corrales, soft tissue fragment measuring 0.4 x 0.3 x 0.2 cm. Submitted entirely, one cassette. DIAGNOSIS Colon, descending, biopsy: Hyperplastic polyp. Signed Electronically by: ABDULAZIZ KOHLI MD 11/29/11 1458 -- -- DEPARTMENT OF PATHOLOGY, [address] [place] [id number] [facility] Permit #[id number] Abdulaziz Kohli M.D. Director Kristine Issa M.D. Long Line Teamster Dir sena -- 80 Anion gap measurement may be of limited value in the presence of any alkalosis, especially in a combined acid base disorder. . 81 Because ethnic data is not always readily available, this report includes an eGFR for both -Americans and non- Americans. The National Kidney Disease Education Program (NKDEP) does not endorse the use of the MDRD equation for patients that are not between the ages of 18 and 70, are , have extremes of body size, muscle mass, or nutritional status, or are non- or non-. According to the National Kidney Foundation, irrespective of diagnosis, the stage of the disease is based on the level of kidney function: Stage Description GFR(mL/min/1.73 m(2)) 1 Kidney damage with normal or decreased GFR 90 2 Kidney damage with mild decrease in GFR 60-89 3 Moderate decrease in GFR 30-59 4 Severe decrease in GFR 15-29 5 Kidney failure <15 (or dialysis) 82 A metabolite of Naproxen, O-desmethylnaproxen, has been shown to interfere with the Jendrassik-Samantha method for measuring total bilirubin. Samples from patients who have taken Naproxen have shown spurious elevation in total bilirubin levels. 83 Please note updated reference range, effective 06/08/10 84 RUN DATE: 10/19/11 [facility] NMI LIVE PAGE 1 RUN TIME: 1059 Specimen Inquiry RUN USER: INTERFACE Name: KINJAL DUVAL Status: REG REF Re10/17/11 Age/Sex: 51/F Unit#: [id number] Location: [facility] : 60 SPEC #: [id number] JACQUI: 10/17/11 STATUS: COMP REQ #: [id number] RECD: 10/17/11 [facility] DR: Chetan HAYWARD,Tammy Coley SOURCE: EAR ENTR: 10/17/[address]: RADHA: RIGHT EAR ORDERED: CULT SENS/GS QUERIES: MEDENT REQUISITION # [id number] ACT WKST: B 10/19/11 #1 Procedure Result Verified Site > CULTURE SENSITIVITY Final 10/19/11- 1059 ML Organism 1 PSEUDOMONAS AERUGINOSA QUANTITY MODERATE 1. PSEUDOMONAS AERUGINOSA RX M.I.C. ------ --------- AMIKACIN S 8 LEVOFLOXACIN S 1 CIPROFLOXACIN S <=0.25 GENTAMICIN S 2 CEFTAZIDIME S 4 IMIPENEM S 2 *These antibiotics are not available in the [facility] Formulary. Contact the Microbiology Department for any additional antibiotic reporting. > GRAM STAIN SMEAR Final 10/18/11- 0821 ML POLYS NONE SMEAR: NO ORGANISMS SEEN - [facility] Permit #[id number] [facility] [employer] [place] [address] DEPARTMENT OF PATHOLOGY, [facility] [address] [place], [place] [address] [place] Permit #[id number] Abdulaziz Kohli M.D. Director Kristine Issa M.D. Machine [employer]ak Tenderizer 85 ---- RUN DATE: 09/20/11 [facility] NMI LIVE PAGE 1 RUN TIME: 1102 Specimen Inquiry RUN USER: INTERFACE -- Name: KINJAL DUVAL Acctabatha#: [id number] Status: REG REF Re09/19/11 Age/Sex: 51/F Unit#: [id number] Location: [facility] : 60 -- Specimen: [id number] SOUT Spec Date: 09/19/[address]: Tammy lu MD Spec Type: CYTOLOGY Received: 09/19/11-0827 Copies to: SOURCE ECTOCERVICAL/ENDOCERVICAL Thin Prep with Reflex HPV Test PATIENT INFORMATION ACTUAL COLLECTION DATE: 09/19/11 LAST MENSTRUAL PERIOD: 09/13/10 DATE OF PRIOR SPECIMEN: 12/24/08 ADEQUACY OF SPECIMEN Satisfactory for evaluation * Transformation zone component identified * DIAGNOSIS NEGATIVE FOR INTRAEPITHELIAL LESION OR MALIGNANCY * This Pap test was evaluated with the assistance of the [employer] Pap Test Imaging System. The Pap Smear is a screening test designed to aid in the detection of premalign ant and malignant conditions of the uterine cervix. It is not a diagnostic procedure a nd should not be used as the sole means of detecting cervical cancer. Both false- positiv e and false-negative reports do occur. Depending on your risk status, a Pap smear edgar uld be obtained and evaluated every one to three years. Final Interpretation electronically signed by: Randy CORNEJO(ASCP) 09/20/11 110 1 -- -- DEPARTMENT OF PATHOLOGY, [address] [place] [address] [facility] Permit #[id number] Abdulaziz Kohli M.D. Director Kristine Issa M.D. Long Line Teamster nathen -- 86 Anion gap measurement may be of limited value in the presence of any alkalosis, especially in a combined acid base disorder. . 87 A metabolite of Naproxen, O-desmethylnaproxen, has been shown to interfere with the Jendrassik-Merom method for measuring total bilirubin. Samples from patients who have taken Naproxen have shown spurious elevation in total bilirubin levels. 88 Because ethnic data is not always readily available, this report includes an eGFR for both -Americans and non- Americans. The National Kidney Disease Education Program (NKDEP) does not endorse the use of the MDRD equation for patients that are not between the ages of 18 and 70, are , have extremes of body size, muscle mass, or nutritional status, or are non- or non-. According to the National Kidney Foundation, irrespective of diagnosis, the stage of the disease is based on the level of kidney function: Stage Description GFR(mL/min/1.73 m(2)) 1 Kidney damage with normal or decreased GFR 90 2 Kidney damage with mild decrease in GFR 60-89 3 Moderate decrease in GFR 30-59 4 Severe decrease in GFR 15-29 5 Kidney failure <15 (or dialysis) 89 THERAPEUTIC TARGET FOR THE TREATMENT OF DIABETES MELLITUS PATIENTS IS <7% HBA1C, AND IN SELECTIVE PATIENTS <6.0%. PLEASE REFER TO [employer]ATION DIABETIC CARE GUIDELINES FOR FURTHER INFORMATION. 90 Lymphopenia % 91 CHOLESTEROL INTERPRETATION: Desirable: Less than 200 MG/DL Borderline-High Risk: 200-239 MG/DL High-Risk: 240 MG/DL and over 92 HDL INTERPRETATION: Undesirable: High Risk: Less than 40 MG/DL Desirable: Low Risk: Greater than 60 MG/DL 93 LDL INTERPRETATION: Low Risk Optimal Level: LDL Less than 100 MG/DL Near or Above Optimal: LDL 100-129 MG/DL Borderline High Risk: LDL 130-159 MG/DL High Risk: LDL 160-189 MG/DL Very High Risk: LDL Greater than 189 MG/DL 94 Anion gap measurement may be of limited value in the presence of any alkalosis, especially in a combined acid base disorder. . 95 Note change in reference range as of 07/08/08. The change was based on recommendations from the [place] [employer]. 96 Please note change in reference range effective 08 . 97 THERAPEUTIC TARGET FOR THE TREATMENT OF DIABETES MELLITUS PATIENTS IS <7% HBA1C, AND IN SELECTIVE PATIENTS <6.0%. PLEASE REFER TO [employer] DIABETIC CARE GUIDELINES FOR FURTHER INFORMATION. 98 CHOLESTEROL INTERPRETATION: Desirable: Less than 200 MG/DL Borderline-High Risk: 200-239 MG/DL High-Risk: 240 MG/DL and over 99 HDL INTERPRETATION: Undesirable: High Risk: Less than 40 MG/DL Desirable: Low Risk: Greater than 60 MG/DL 10 LDL INTERPRETATION: 0 Low Risk Optimal Level: LDL Less than 100 MG/DL Near or Above Optimal: LDL 100-129 MG/DL Borderline High Risk: LDL 130-159 MG/DL High Risk: LDL 160-189 MG/DL Very High Risk: LDL Greater than 189 MG/DL 10 ---- 1 RUN DATE: 07/30/07 [facility] NMI LIVE PAGE 1 RUN TIME: 820 Specimen Inquiry RUN USER: INTERFACE [id number] KINJAL DUVAL 46/F <REG REF 07/28> ([id number]) NADINE Benton MD, Raven Coley -- Specimen: [id number] SOUT Spec Date: 07/28/[address]: Tammy lu MD Spec Type: CYTOLOGY Received: 07/29/07-1145 Copies to: SOURCE ECTOCERVICAL/ENDOCERVICAL Thin Prep with Reflex HPV Test PATIENT INFORMATION ACTUAL COLLECTION DATE: 07/28/07 LAST MENSTRUAL PERIOD: 07/24/07 ADEQUACY OF SPECIMEN Satisfactory for evaluation * Transformation zone component identified * DIAGNOSIS NEGATIVE FOR INTRAEPITHELIAL LESION OR MALIGNANCY * This Pap test was evaluated with the assistance of the PhoneplusPrep Pap Test Imaging System. The Pap Smear is a screening test designed to aid in the detection of premalign ant and malignant conditions of the uterine cervix. It is not a diagnostic procedure a nd should not be used as the sole means of detecting cervical cancer. Both false- positive and false-negative reports do occur. Depending on your risk status, a Pap smear edgar uld be obtained and evaluated every one to three years. Final Interpretation electronically signed by: Randy CORNEJO(ASC) 07/30/07 082 1 -- -- DEPARTMENT OF PATHOLOGY, [address], [place], [place] [address] [facility] Permit #[id number] Abdulaziz Kohli M.D. Director of Laboratories Martita Nye II, M.D . Pathologist -- 10 Run: 04/26/06 1035 LIS Specimen Inquiry 2 Run User: INTERFACE -- Name: KINJAL DUVAL Age/Sex: 45/F Location: [facility]#: [id number] Unit#: [id number] Status: REG REF Room/Bed: Re04/19/06 Disch: Att Dr: Tammy Benton MD. -- Spec #: [id number] Recd: 04/22/06 Status: GILBERTO [facility] #: [id number] SpType: CYTOLOGY Sub Dr: Tammy Benton MD. ADEQUACY OF SPECIMEN Satisfactory for evaluation * Transformation zone component identified * DIAGNOSIS NEGATIVE FOR INTRAEPITHELIAL LESION OR MALIGNANCY * Reactive cellular changes associated with * Inflammation (includes typical repair) * SOURCE ECTOCERVICAL/ENDOCERVICAL Thin Prep with Reflex HPV Test The Pap Smear is a screening test designed to aid in the detection of premalign ant and malignant conditions of the uterine cervix. It is not a diagnostic procedure an d should not be used as the sole means of detecting cervical cancer. Both false-positive and false-negative reports do occur. Depending on your risk status, a Pap smear edgar uld be obtained and evaluated every one to three years. PATIENT INFORMATION ACTUAL COLLECTION DATE: 04/19/06 -- Signed Randy CORNEJO([facility]) 04/26/06 MARTITA NYE MD 04/26/06 -- END OF REPORT 10 Anion gap measurement may be of limited value in the 3 presence of any alkalosis, especially in a combined acid base disorder. . 10 THERAPEUTIC TARGET FOR THE TREATMENT OF DIABETES 4 MELLITUS PATIENTS IS <7% HBA1C, AND IN SELECTIVE PATIENTS <6.0%. PLEASE REFER TO [employer]ATION DIABETIC CARE GUIDELINES FOR FURTHER INFORMATION. 10 Anion gap measurement may be of limited value in the 5 presence of any alkalosis, especially in a combined acid base disorder. . 10 Classification: Desirable 6 . 10 CALCULATED LDL APPROXIMATES THE VALUE OF A DIRECT LDL 7 MEASUREMENT. Classification: Near or above optimal . 10 Cholesterol Risk Levels (NIH) 8 Recommended: under 200 mg/dl Borderline : 200-239 mg/dl High Risk : Above 240 mg/dl . 10 LDL Cholesterol Risk Levels (NIH) 9 Recommended: under 130 mg/dl Borderline: 131 - 159 mg/dl High Risk: above 160 mg/dl . 11 LDL/HDL Risk Ratio Levels 0 MALE FEMALE 1/2 X Average 1.00 1.47 Average 3.55 3.22 2 X Average 6.25 5.03 3 X Average 7.99 6.14 . 11 CHOL/HDL Risk Ratio Levels 1 MALE FEMALE 1/2 X Average 3.4 3.3 Average 5.0 4.4 2 X Average 9.5 7.0 3 X Average 24.0 11.0 . Procedures Date CPT Code Description Status Comment 04/25/2018 39744 EKG, at Least 12 Leads Completed w/Interpretation and Report 12/18/2013 Diabetic Retinal Eye Exam Completed No evidence of diabetic retinopathy 11/18/2011 Colonoscopy Completed HYPERPLASTIC POLYP- repeat in 10 years 12/24/2008 29310 EKG, at Least 12 Leads Completed w/Interpretation and Report 01/24/2004 41535 EKG, at Least 12 Leads Completed w/Interpretation and Report 09/18/2002 10 Completed Encounters Type Date Location Provider CPT E/M Dx Office Visit 04/25/2018 11:00a [facility] Reba Brito M.D., 43764 M17.9 R.D. I10 E11.9 Office Visit 04/01/2018 10:30a [facility], 0[address]27 H60.8x3 APPLICATION SUPPORT TECHNICIAN-C Office Visit 02/28/2018 9:30a Main Office Reba Brito M.D., 55089 Z00.00 R.D. E11.9 I10 M25.561 M25.562 D75.89 Office Visit 10/21/2017 10:15a Main Office Reba Brito M.D., R.D. 83035 E11.9 I10 L20.9 Office Visit 03/08/2017 11:00a [place] [address] M79.671 Office Visit 02/25/2017 1:45p Main Office Reba Brito M.D., R.D. 75766 Z00.00 E11.9 I10 E66.3 E53.9 Office Visit 05/14/2016 9:30a Main Office Joan Farris [facility]C 21058 N61 Office Visit 05/11/2016 10:15a Main Office Joan Farris APPLICATION SUPPORT TECHNICIAN-C 08614 N61 Office Visit 11/21/2015 1:00p Main Office Reba Brito M.D., Theodore.Rudolph 44230 Z00.00 E11.9 E78.0 I10 D75.89 Office Visit 04/21/2015 10:15a Main Office Reba Brito M.D., Theodore.Rudolph 51237 250.00 272.0 401.9 289.89 Office Visit 10/01/2014 8:45a Main Office Joan JaimesJosh Brenton [facility]-C 73023 V70.0 250.00 691.8 Office Visit 04/29/2014 10:00a Main Office Shanon Gomez M.D. 50844 250.00 272.0 401.9 719.46 Office Visit 03/19/2014 3:15p Main Office Shanon Gomez M.D. 10237 910.4 Office Visit 12/14/2013 9:30a Main Office Shanon Gomez M.D. 03465 250.00 272.0 401.9 780.52 Office Visit 07/23/2013 8:30a Main Office Shanon Gomez M.D. 33723 V70.0 250.00 272.0 401.9 278.00 110.2 Office Visit 12/03/2012 9:15a Main Office Tammy Benton M.D. 78305 250.00 272.0 401.9 356.8 691.8 311 Office Visit 11/27/2012 3:45p Main Office Shanon Gomez M.D. 58575 723.1 Office Visit 07/15/2012 4:30p Main Office Tammy Benton M.D. 89816 272.0 401.9 250.00 723.1 Office Visit 05/08/2012 2:30p Main Office Shanon Gomez M.D. 19032 724.2 728.85 Office Visit 02/20/2012 9:30a Main Office Tammy Benton M.D. 65533 401.9 272.0 300.00 250.00 Office Visit 12/05/2011 9:45a Main Office Tammy Benton M.D. 94945 401.9 272.0 300.00 250.00 Office Visit 10/17/2011 12:30p Main Office Tammy Benton M.D. 44389 380.16 250.00 Office Visit 09/19/2011 9:15a Main Office Tammy Benton M.D. 73222 V72.31 V70.0 250.00 401.9 272.0 573.3 300.00 782.1 V06.1 Office Visit 07/24/2011 11:00a Main Office Tammy Benton M.D. 62891 373.02 V04.81 Office Visit 06/22/2011 9:00a Main Office HARRY Oh-C 26296 380.22 372.14 Office Visit 11/30/2010 2:15p Main Office HARRY Oh-C 75818 724.5 Office Visit 06/03/2009 2:00p Main Office Tammy Benton M.D. 61438 373.02 401.9 272.0 Office Visit 02/23/2009 9:45a Main Office Tammy Benton M.D. 01185 250.00 401.9 272.0 Office Visit 12/24/2008 9:45a Main Office Tammy Benton M.D. 24236 V72.31 V70.0 272.0 381.81 490 401.9 Office Visit 04/22/2008 4:15p Main Office HARRY Oh-C 73398 784.0 Office Visit 01/16/2008 10:15a Main Office Tammy Benton M.D. 20547 724.79 611.72 401.9 Office Visit 08/06/2007 11:00a Main Office Tammy Benton M.D. 58682 729.2 Office Visit 07/28/2007 1:30p Main Office Tammy Benton M.D. 50955 V72.31 V70.0 401.9 300.00 305.1 Office Visit 10/16/2006 12:30p Main Office Tammy Benton M.D. 85222 724.5 Office Visit 04/19/2006 12:00p Main Office Tammy Benton M.D. 68729 V72.31 V70.0 788.37 780.52 305.1 Office Visit 12/29/2004 10:00a Main Office Tammy Benton M.D. 50397 V72.31 V70.0 401.9 381.01 V76.47 Office Visit 05/01/2004 3:00p Main Office Tammy Benton M.D. 84149 401.9 Office Visit 03/28/2004 9:15a Main Office Tammy Benton M.D. 44505 724.2 401.9 Office Visit 02/22/2004 9:00a Main Office Tammy Benton M.D. 10052 401.9 Office Visit 02/08/2004 11:00a Main Office Tammy Benton M.D. 97831 906.8 401.9 Office Visit 01/24/2004 1:00p Main Office Tammy Benton M.D. 09258 558.9 786.59 401.9 780.52 782.1 Office Visit 12/07/2003 8:45a Main Office Tammy Benton M.D. 71224 V72.3 V70.0 Office Visit 05/03/2003 9:00a Main Office Juliana Giang 70914 719.47 Office Visit 09/18/2002 9:15a Main Office Tammy Benton M.D. 65763 783.1 311 V72.3 V15.82 Plan of Care No Information Available
[2018-05-20] MEDS ORDERED: Gabapentin CAP(*) 100 MG ONE (07:43)
[2018-05-20] MEDS ORDERED: Scopolamine 1.5 mg* PATCH ONE (07:44)
[2018-05-20] MEDS ORDERED: Dexamethasone TAB* 4 MG ONE (07:44)
[2018-05-20] MEDS ORDERED: Gabapentin CAP(*) 400 MG PO ONE (07:44)
[2018-05-20] MEDS ORDERED: Ondansetron ODT TAB* 4 MG ONE (07:44)
[2018-05-20] MEDS ORDERED: Famotidine IV* 10 MG/ML 2 ML (20 mg) ONE (07:44)
[2018-05-20] MEDS ORDERED: ceFAZolin 2 GM PREMIX (*) 2 GM/50 ML BAG IVPB ONE (07:45)
[2018-05-20] MEDS ORDERED: ceFAZolin 1 GM in Dextrose (*) 1 GM/50 ML BAG IVPB ONE (07:45)
[2018-05-20] MEDS ORDERED: Midazolam* 1 MG/ML 10 ML VIAL (10 MG) ONE ×2 (07:52→09:22)
[2018-05-20] MEDS ORDERED: KETAMINE HCL* 50 MG/ML 10 ML VIAL ONE (07:52)
[2018-05-20] MEDS ORDERED: fentaNYL* 50 MCG/ML 2 ML VIAL (100 MCG VIAL) ONE ×4 (07:52→13:26)
[2018-05-20] MEDS ORDERED: Diltiazem CD CAP* 240 MG PO ONE (08:15)
[2018-05-20] MEDS ORDERED: Bupivacaine 0.5% SDV PF* 30ML VIAL ONE (10:11)
[2018-05-20] MEDS ORDERED: Lidocaine 2% PF * 5 ML VIAL ONE (10:26)
[2018-05-20] MEDS ORDERED: Bupivacaine 0.5% PF 10 ML VIAL INJ ONE (10:26)
[2018-05-20] MEDS ORDERED: ROPIVACAINE 5 MG/ML 30 ML BTL (0.5%) ONE (10:26)
[2018-05-20] MEDS ORDERED: Propofol* 1,000 MG/100 ML BTL ONE (10:26)
[2018-05-20] MEDS ORDERED: Midazolam* 1 MG/ML 5 ML VIAL (5 MG) ONE (10:37)
[2018-05-20] MEDS ORDERED: Bisacodyl SUPP* 10 MG SUPP PR PRN (12:12)
[2018-05-20] MEDS ORDERED: Polyethylene Glycol 3350* 17 GM PACKET PO PRN (12:12)
[2018-05-20] MEDS ORDERED: Magnesium Hydroxide LIQ* 30 ML UDC PO PRN (12:12)
[2018-05-20] MEDS ORDERED: Ondansetron INJ* 2 MG/ML VIAL IV PRN (12:12)
[2018-05-20] MEDS ORDERED: diPHENhydraMINE IV* 50 MG/ML 1 ml VIAL (BENADRYL) IV PRN (12:12)
[2018-05-20] MEDS ORDERED: Acetaminophen TAB* 325 MG PO PRN (12:12)
[2018-05-20] MEDS ORDERED: Ondansetron ODT TAB* 4 MG PO PRN (12:12)
[2018-05-20] MEDS: fentaNYL* 50 MCG/ML 2 ML VIAL (100 MCG VIAL) IV PRN ×10 (12:31→13:31)
[2018-05-20] MEDS ORDERED: Morphine VIAL* 10 MG/ML 1 ML VIAL ONE ×2 (12:37→13:36)
[2018-05-20] MEDS: Morphine INJ* 2 MG/ML 1 ML CARPUJECT IV PRN ×4 (12:40→13:42)
[2018-05-20] MEDS ORDERED: Acetaminophen IV 1GM/100ML * 100 ML ONE (13:01)
--- NOTE | 2018-05-20 13:23 | RAD ---
INDICATION: Left total knee arthroplasty COMPARISON: February 03, 2018 TECHNIQUE: A portable 2 view examination is submitted were obtained. FINDINGS: There is left knee arthroplasty. Both femoral and tibial components appear well seated. There is no overlying cooling jacket. IMPRESSION: LEFT KNEE ARTHROPLASTY. THE PROSTHESIS APPEARS NORMALLY SEATED
[2018-05-20] MEDS ORDERED: Cyclobenzaprine TAB* 10 MG ONE (14:42)
[2018-05-20] MEDS ORDERED: Morphine VIAL* 4 MG/ML VIAL (1 ml vial) IV ONE (14:43)
[2018-05-20] MEDS ORDERED: ceFAZolin 1 GM in Dextrose (*) 1 GM/50 ML BAG IVPB SCH (15:00)
[2018-05-20] MEDS ORDERED: Dextrose 50% Syringe 50 ML* 25 GM/50 ML SYRINGE IV PUSH PRN (15:21)
[2018-05-20] MEDS: oxyCODONE/Acetamin 5/325 MG* TAB PO PRN ×2 (15:37→19:33)
[2018-05-20] MEDS: Morphine VIAL* 4 MG/ML VIAL (1 ml vial) IV PRN ×3 (16:56→21:41)
[2018-05-20] MEDS ORDERED: Warfarin TAB(*) 6 MG PO ONE (17:00)
[2018-05-20] MEDS: Insulin LISPRO* 1 UNITS UNIT SUBCUT SCH (17:53)
[2018-05-20] MEDS: ceFAZolin 1 GM in Dextrose (*) 1 GM/50 ML BAG IVPB SCH (17:53)
[2018-05-20] MEDS: oxyCODONE TAB* 5 MG TAB PO PRN ×2 (17:53→21:40)
[2018-05-20] MEDS ORDERED: metFORMIN* 500 MG TAB PO SCH (21:00)
--- NOTE | 2018-05-20 21:02 | CONS ---
[facility] MEDICINE CONSULTATION REPORT: DATE OF CONSULT: 05/20/18 PROVIDER: Misti Troncoso NP ATTENDING PHYSICIAN: Dr. Mireles. CONSULTING PHYSICIAN: Dr. Lili Goldstein (dictated by Misti Troncoso NP). REASON FOR CONSULT: Co-management of chronic medical conditions. HISTORY OF PRESENT ILLNESS: Ms. Nugent is a 57-year-old female, who carries a past medical history significant for hypertension, diabetes, depression and anxiety, who [place] [facility] [place] planned left total knee replacement. Please see the dictated H and P from ISA Moctezuma for complete details. In brief, the patient had complaints of left knee pain. She failed conservative management and elected to proceed with a left total knee arthroplasty with Dr. Mireles. In the immediate postoperative period, the patient complains of left knee pain and is being medicated. She denies any recent fever, chills, nausea, vomiting, diarrhea. Denies any cough or congestion. Denies any shortness of breath. Denies dysuria or hematuria. Denies any dysphagia. Denies any rashes or lesions. Denies any problems with depression or anxiety. Given her history of hypertension and diabetes, we were asked to consult in management of her hypertension and diabetes. PAST MEDICAL HISTORY: 1. Hypertension. 2. Diabetes. 3. Cervical cancer. 4. Depression. 5. Anxiety. PAST SURGICAL HISTORY: Cone biopsy of the cervix. MEDICATIONS: Outpatient medications: 1. Calcium. 2. Diltiazem 240 mg p.o. daily. 3. Fluoxetine 40 mg p.o. daily. 4. Glucosamine. 5. Hydrochlorothiazide 25 mg p.o. daily. 6. Metformin 500 mg p.o. b.i.d. 7. Mometasone furoate as needed. 8. Multivitamin 1 p.o. daily. 9. Trazodone 100 mg 2 tablets at h.s. as needed for sleep. 10. Vitamin B12. 11. Vitamin C. 12. Percocet 10/325 as needed for pain (the patient reports she has been taking this t.i.d.) ALLERGIES: No known drug allergies. FAMILY HISTORY: Mother with a history of hypertension. Maternal grandmother with a history of CHF. Grandfather with a history of an VT. Denies any diabetes. Does report father had prostate cancer, mother had breast and uterine cancer. SOCIAL HISTORY: The patient states she quit smoking in December of 2017. She denies any illicit drug use. She does report occasional alcohol use. She is . Surrogate decision maker in the event she is unable to make her own decisions is her , Dustin Nugent. His phone number is [phone]. She is a full code. REVIEW OF SYSTEMS: There was no documented fever. No loss of appetite. Denies any chest pain or edema. Denies any cough, congestion, hemoptysis, or shortness of breath. GI: Denies any nausea, vomiting. Denies diarrhea or abdominal pain. : Denies any gross hematuria or dysuria. Neuro: Denies any focal weakness or sensory loss. Eyes: Denies any visual complaints. ENT: Denies any dysphagia. Musculoskeletal: She does complain of left knee pain. Skin: Denies any rashes or lesions. Psych: Denies any depression or anxiety. PHYSICAL EXAM: Vital Signs: Blood pressure was 151/86, heart rate was 61, respirations were 16, O2 saturation on room air was 97%, temperature was 98.1. General: Ms. Nugent is a 57-year-old female. She is found resting in the bed in the recovery room. She does not appear to be in any acute distress. She does complain of some left knee pain. Neuro: She is alert and oriented x3. She is able to move all extremities. Sensation is intact to bilateral lower extremities. Eyes: Extraocular eye movements are intact. Heart: S1, S2. Regular rate. There are no murmurs, rubs, or gallops. Lungs are clear to auscultation bilaterally with no accessory muscle use. There is good aeration bilaterally. Abdomen is soft and nontender. Bowel sounds are positive x4. Extremities: There is no cyanosis or edema. Pedal pulses are +2 bilaterally. There is a dressing intact to her left knee that is dry. DIAGNOSTIC STUDIES/LAB DATA: Preoperatively from 05/07/18: WBCs were 6.5, RBCs 3.72, hemoglobin was 12.9, hematocrit was 38, platelet count was 305. INR was 0.87. Sodium 140, potassium 4.1, chloride was 100, carbon dioxide was 31, anion gap was 9, BUN was 16, creatinine 0.80, glucose was 162 on 05/20/18, calcium was 10.0. IMPRESSION AND PLAN: Ms. Nugent is a 57-year-old female with past medical history significant for hypertension, diabetes, depression and anxiety, who was admitted for an elective left total knee arthroplasty with Dr. Mireles. In the immediate postoperative period, she has complaints of left knee pain and no other complaints. Hospital Medicine was called to consult regarding her hypertension and diabetes. Our recommendations are as follows: 1. Status post left total knee arthroplasty. Management per Orthopedics. PT/ OT per Orthopedics. 2. Hypertension. I would continue her diltiazem 240 mg p.o. daily. I would continue her hydrochlorothiazide 25 mg p.o. daily. 3. Diabetes. We will place her on fingersticks a.c. with lispro sliding scale coverage with a.c. coverage. We will hold her metformin at this time. 4. Depression and anxiety. I would recommend continuing her fluoxetine 40 mg p.o. daily. 5. FEN: She can be placed on heart-healthy, caffeine okay diet. 6. DVT prophylaxis: Per Orthopedics. 7. Code status: She is a full code. TIME SPENT: Time spent on this consultation was 45 minutes, more than half the time was spent with the patient at the bedside reviewing her history and completing her physical examination and reviewing my plan of care. I have discussed this with my attending, Dr. Lili Goldstein, and she is in agreement with my plan. MISTI TRONCOSO, EMELY [id number]/[facility] #: [id number] CHUCKY
[2018-05-20] MEDS: Magnesium Hydroxide LIQ* 30 ML UDC PO SCH (21:33)
[2018-05-20] MEDS: traZODone TAB* 100 MG PO SCH (21:33)
[2018-05-20] MEDS: Docusate CAP* 100 MG PO SCH (21:33)
--- NOTE | 2018-05-20 22:42 | OP ---
OPERATIVE REPORT: DATE OF OPERATION: 05/20/18 DATE OF : 60 SURGEON: Asya Mireles MD LEADER TIER: ISA Moctezuma Ms. did help throughout the procedure with preparation of the leg, wound retraction, manipul ation of the knee and wound closure. ANESTHESIOLOGIST: Dr. Hawthorne. ANESTHESIA: Spinal. PRE-OP DIAGNOSIS: Severe end-stage degenerative osteoarthritis of the left knee joint. POST-OP DIAGNOSIS: Severe end-stage degenerative osteoarthritis of the left knee joint. OPERATIVE PROCEDURE: Left total knee arthroplasty. TOURNIQUET TIME: 49 minutes. COMPLICATIONS: None. SPECIMEN: Bone and cartilage from the left knee joint sent to Pathology. HARDWARE USED: This is cemented Ang [employer]hew total knee arthroplasty hardware. Two packages of S implex bone cement. For the femur, a left size 5 Legion Oxinium femoral component. For the tibia, a left size 4 Marycruz II tibial base plate. For the insert, a 9-mm posterior stabilized articular ins ert size 3-4 and for the patella, a 32-mm 3-peg all poly patella with 7.5 thickness. BRIEF HISTORY/INDICATIONS: Ms. Nugent is a 57-year-old female with years of increasingly severe left knee pain. She failed conservative treatment with anti- inflammatories, pain medication, intra-fernando cular injections and physical therapy. Radiographs showed [id number] arthritis. Due to continued p ain and decreased quality of life, she elected to have left total knee arthroplasty. Informed consen t was obtained from the patient. She understood the risks of the procedure included, but were not li mited to bleeding, infection, damage to nearby structures, continued pain, need for further surgery, intraoperative fracture, nerve palsy, hardware failure or loosening, knee stiffness, loss of motion, stroke, heart attack, blood clot, and . She wished to proceed. INTRAOPERATIVE FINDINGS: Intraoperatively, the patient was noted to have tricompartmental full-thick ness loss of cartilage. She had some lateral femoral condylar hypoplasia. DESCRIPTION OF PROCEDURE: Ms. Nugent was identified in the preanesthesia unit. Her left lower extrem ity was marked as the correct operative side. Informed consent was signed and placed in the chart. The patient was taken to the operating room and placed under spinal anesthesia. A Morelos catheter was placed. Tourniquet was placed on the left thigh. Left lower extremity was prepped and draped in th e usual sterile fashion. Preop time-out was made to correctly identify the patient's side and site. Appropriate perioperative antibiotics were given within 1 hour of incision. A 12-cm midline incision was made with a #10 blade and carried down to the extensor mechanism. A new 10-blade was used to make a standard medial parapatellar arthrotomy and the patella was subluxed lat erally. Electrocautery was used to subperiosteally elevate soft tissue off the superomedial tibia to the mid sagittal plane. The knee was flexed up. The anterior horn of the lateral meniscus and ACL were sharply released. A drill was used to enter the distal femur. Intramedullary distal femoral cu tting guide was pinned on the distal femur. Lateral femoral condylar hypoplasia was noted and accoun alba for. Oscillating saw was used to make the distal femoral cut. External rotation guide was pinne d on the distal femur and the distal femur was sized to a size 5. Size 5 multi-cutting jig was pinne d on the distal femur. Oscillating saw was used to make the appropriate 4 chamfer cuts. Next, the PCL was completely released. The tibia was subluxed anteriorly. Extramedullary tibial cutt ing guide was pinned on the proximal tibia. Oscillating saw was used to make the proximal tibial cut perpendicular to the mechanical axis of the tibia. The bone was carefully removed. The knee was br ought out into full extension. Medial and lateral ligaments were well balanced. Spacer block fit ni queenie with the knee in full extension. Flexion and extension gaps were well balanced. The knee was f lexed up. Lamina peoplesoft financials consultant was placed both medially and laterally. Any remaining meniscus was remove d using electrocautery. Curved osteotome was used to remove any posterior osteophytes. Tibial tray and drop yang were placed and once again confirmed a satisfactory tibial cut. A left size 5 femoral trial was impacted on to the distal femur and had excellent fit. The box for t he posterior stabilized implant was prepared using a reamer and box cut osteotome. A size 4 tibial t ray trial with a 9 mm insert trial was placed and the knee was taken through a range of motion. The knee had full extension to 130 degrees of flexion with satisfactory patellofemoral tracking. The pat krystal was everted. A 7-mm of patellar bone and cartilage was carefully removed using an oscillating s aw. Patella was sized to a size 32. Three peg holes were drilled through the size 32 guide. Trial 32 patella with 7.5 thickness was placed and the knee was taken through a range of motion. There was satisfactory patellofemoral tracking. All trials were carefully removed. The tibia was subluxed anteriorly and sized to a size 4. Proxima l tibia was prepared using a size 4 keel punch. All bony cut surfaces were copiously irrigated with sterile saline and dried. Final implants were monse ented into place starting with the tibia followed by the femur and last the patella. A 9-mm insert t rial was placed and the knee was brought out into full extension. Tourniquet was turned down at 49 m inutes. The knee was copiously irrigated with sterile saline. Electrocautery was used to obtain met iculous hemostasis. Once the cement had fully cured, the insert trial was removed. Any excess cemen t was removed from around the hardware and capsule. Final insert chosen was a 9-mm posterior stabiliz ed articular insert size 3-4. This was locked into position on the tibial tray without difficult. St ability of the insert was checked and rechecked and noted to be stable. The knee was copiously irrig ated with sterile saline. The extensor mechanism was closed using interrupted #1 Vicryls. The rest of the incision was closed in a layered fashion using 0 and 2-0 Vicryls. Skin was closed using runni ng 3-0 nylon suture. Sterile Xeroform, 4x4s and Webril were used to cover the incision. Yoel wrap an d cold pack were placed over this. The patient's anesthesia was reversed without difficulty. She was taken to the PACU in stable condition. Intended weightbearing will be weightbearing as tolerated. Intended DVT prophylaxis will be Coumadin with a Lovenox bridge. [id number]/[facility] #: [id number]
[2018-05-21] MEDS: oxyCODONE/Acetamin 5/325 MG* TAB PO PRN ×5 (00:28→21:03)
[2018-05-21] MEDS: Morphine VIAL* 4 MG/ML VIAL (1 ml vial) IV PRN ×8 (00:35→18:23)
[2018-05-21] MEDS: ceFAZolin 1 GM in Dextrose (*) 1 GM/50 ML BAG IVPB SCH ×2 (01:45→09:29)
[2018-05-21] MEDS: oxyCODONE TAB* 5 MG TAB PO PRN ×4 (04:01→18:23)
[2018-05-21] MEDS ORDERED: oxyCODONE TAB* 5 MG TAB ONE (04:10)
[2018-05-21] MEDS: Cyclobenzaprine TAB* 10 MG PO PRN ×2 (06:37→16:34)
[2018-05-21 07:20] LABS: INR 0.97 (0.77-1.02)
[2018-05-21 07:21] LABS: Hematocrit 35 % (35-47); Hemoglobin 11.9 g/dl (12.0-16.0); Mean Platelet Volume 7.9 um3 (7.4-10.4); Platelet Count 299 10^3/ul (150-450)
[2018-05-21 07:38] LABS: EGFR Non-African American 90.7 (>60)
[2018-05-21] MEDS: Insulin LISPRO* 1 UNITS UNIT SUBCUT SCH ×3 (07:45→16:37)
[2018-05-21] MEDS: Magnesium Hydroxide LIQ* 30 ML UDC PO SCH ×2 (08:17→21:08)
[2018-05-21] MEDS: FLUoxetine CAP* 20 MG PO SCH (08:18)
[2018-05-21] MEDS: Hydrochlorothiazide TAB* 25 MG PO SCH (08:18)
[2018-05-21] MEDS: Diltiazem CD CAP* 240 MG PO SCH (08:18)
[2018-05-21] MEDS ORDERED: HYDROmorphone TAB* 2 MG PO PRN (08:19)
[2018-05-21] MEDS: Docusate CAP* 100 MG PO SCH ×2 (08:19→21:04)
--- NOTE | 2018-05-21 08:58 | PN ---
Subjective Date of Service: 05/21/18 Interval History: Ms. Nugent reports having persistent knee pain this morning. Nursing staff have been notified. She denies other complaint including chest pain, SOB, nausea, or abdominal pain. Objective Active Medications: Acetaminophen (Tylenol Tab*) 650 mg PO Q4H PRN Bisacodyl (Dulcolax Supp*) 10 mg MD DAILY PRN Cyclobenzaprine HCl (Flexeril Tab*) 10 mg PO TID PRN Dextrose (D50w Syringe 50 Ml*) 12.5 gm IV PUSH .FOR FS < 60 - SS PRN Diltiazem HCl (Cardizem Cd Cap*) 240 mg PO DAILY DMITRIY Diphenhydramine HCl (Benadryl Iv*) 12.5 mg IV Q6H PRN Docusate Sodium (Colace Cap*) 100 mg PO BID DMITRIY Enoxaparin Sodium (Lovenox(*)) 40 mg SUBCUT Q24H DMITRIY Fluoxetine HCl (Prozac Cap*) 40 mg PO DAILY DMITRIY Hydrochlorothiazide (Hydrodiuril Tab*) 25 mg PO QAM DMITRIY Hydromorphone HCl (Dilaudid Tab*) 2 mg PO Q4H PRN Lactated Ringer's (Lactated Ringers 1000 Ml Bag*) 1,000 mls @ 100 mls/hr IV PER RATE DMITRIY Cefazolin Sodium/Dextrose (Kefzol 1 Gm In Dextrose Duplex (*)) 1 gm in 50 mls @ 200 mls/hr IVPB Q8H DMITRIY Insulin Human Lispro (Humalog*) 0 units SUBCUT AC DMITRIY; Protocol Lactulose (Lactulose*) 30 ml PO Q6H PRN Magnesium Hydroxide (Milk Of Magnesia Liq*) 30 ml PO BID DMITRIY Magnesium Hydroxide (Milk Of Magnesia Liq*) 30 ml PO Q6H PRN Morphine Sulfate (Morphine Vial*) 2 mg IV Q2H PRN Ondansetron HCl (Zofran Inj*) 4 mg IV Q6H PRN Ondansetron HCl (Zofran Odt Tab*) 4 mg PO Q6H PRN Oxycodone HCl (Roxycodone Tab*) 10 mg PO Q4H PRN Oxycodone/Acetaminophen (Percocet 5/325 Tab*) 2 tab PO Q4H PRN Oxycodone/Acetaminophen (Percocet 5/325 Tab*) 1 tab PO Q4H PRN Pharmacy Profile Note (Scopolamine Patch Remove*) 1 note PATCH OFF ONCE ONE Polyethylene Glycol/Electrolytes (Miralax*) 17 gm PO DAILY PRN Trazodone HCl (Desyrel Tab*) 200 mg PO BEDTIME DMITRIY Vital Signs: Temp Pulse Resp BP Pulse Ox 98.8 F 71 18 163/88 98 05/21/18 07:25 05/21/18 07:25 05/21/18 08:25 05/21/18 07:25 05/21/18 08:00 Oxygen Devices in Use Now: None Appearance: Female sitting up in chair in NAD Eyes: No Scleral Icterus Ears/Nose/Mouth/Throat: Mucous Membranes Moist Neck: Trachea Midline Respiratory: Symmetrical Chest Expansion and Respiratory Effort, Clear to Auscultation Cardiovascular: NL Sounds; No Murmurs; No JVD, No Edema Abdominal: NL Sounds; No Tenderness; No Distention Extremities: No Edema Skin: No Rash or Ulcers Neurological: Alert and Oriented x 3, NL Muscle Strength and Tone Nutrition: Taking PO's Result Diagrams: 05/21/18 06:53 05/21/18 06:53 Assess/Plan/Problems-Billing Assessment: Ms. Nugent is a 57 yo female with a PMH of HTN, DM, depression, and anxiety who was admitted on 05/20/18 for left total knee replacement. - Patient Problems (1) Status post left knee replacement Comment: - Management per ortho. - Pain meds prn with bowel regimen. - Hgb 11.9 today. - Continue PT/OT. (2) Diabetes Comment: - Contine blood glucose q AC with lispro SSI coverage. - Hold metformin. (3) Hypertension Comment: - SBP 140-160s. - Continue diltiazem and hctz. (4) Depression Comment: - Continue fluoxetine. (5) DVT prophylaxis Comment: - Lovenox with warfarin. (6) Full code status Comment: Status and Disposition: Inpatient, disposition per ortho.
[2018-05-21] MEDS ORDERED: Hydrochlorothiazide TAB* 25 MG PO SCH ×2 (09:00)
[2018-05-21] MEDS ORDERED: Diltiazem CD CAP* 240 MG PO SCH (09:00)
--- NOTE | 2018-05-21 09:43 | PN ---
Progress Note - Progress Note Date of Service: 05/21/18 SOAP: Subjective: POD #1 S/P L TKA with Dr. Mireles on 05/20/18. She continues to have pain control problems in spite of additional PO dilaudid. VSS overnight. Objective: Vital Signs Temp 98.8 F 05/21/18 07:25 Pulse 71 05/21/18 07:25 Resp 18 05/21/18 09:29 BP 163/88 05/21/18 07:25 Pulse Ox 98 05/21/18 08:00 Intake & Output 05/20/18 05/21/18 05/21/18 18:59 06:59 18:59 Intake Total 4410 3183 600 Output Total 4450 4075 Balance -40 -892 600 Weight 286 lb Intake: IV Fluids 2600 1033 ABX - CEFAZOLIN 53 LR 2600 980 Oral 1810 2150 600 Output: Urine 1700 [place] 2550 4075 Estimated Blood Loss 200 Laboratory Results - last 24 hr 05/20/18 05/21/18 05/21/18 17:01 06:53 06:53 Hgb 11.9 L Hct 35 Plt Count 299 MPV 7.9 INR (Anticoag Therapy) 0.97 Sodium Potassium Chloride Carbon Dioxide Anion Gap BUN Creatinine Est GFR ( Amer) Est GFR (Non-Af Amer) BUN/Creatinine Ratio Glucose POC Glucose (mg/dL) 162 H Calcium 05/21/18 06:53 Hgb Hct Plt Count MPV INR (Anticoag Therapy) Sodium 139 Potassium 3.7 Chloride 99 L Carbon Dioxide 32 Anion Gap 8 BUN 12 Creatinine 0.67 Est GFR ( Amer) 109.8 Est GFR (Non-Af Amer) 90.7 BUN/Creatinine Ratio 17.9 Glucose 127 H POC Glucose (mg/dL) Calcium 9.5 General: WN, WD, NAD LLE: Dressing on left knee C/D/I. No erythema, warmth proximal or distal to dressing. Moderate edema proximal and distal to dressing. +DF/PF, 2+ DP pulse, SITLT. Calf and thigh soft, no palpable chords. Assessment: POD #1 S/P L TKA by Dr. Mireles on 05/20/18. Plan: - Pain poorly controlled - D/C dilaudid, start morphine ER - WBAT - Continue PT/OT - Coumadin 10 mg at 5 pm , INR 0.97 after 6 mg yesterday - Appreciate medicine consult for comorbid problem management
[2018-05-21] MEDS: Morphine TAB Extended Release (*) 15 MG TAB.ER PO SCH ×2 (11:41→21:04)
[2018-05-21] MEDS ORDERED: Enoxaparin(*) 40 MG/0.4 ML SYR SUBCUT SCH (12:00)
[2018-05-21] MEDS ORDERED: Warfarin TAB(*) 10 MG PO ONE (17:00)
[2018-05-21] MEDS: traZODone TAB* 100 MG PO SCH (21:05)
[2018-05-22] MEDS: oxyCODONE/Acetamin 5/325 MG* TAB PO PRN ×3 (02:13→10:44)
[2018-05-22] MEDS ORDERED: hydrALAZINE IV* 20 MG/ML VIAL IV SLOW PU ONE (03:34)
[2018-05-22] MEDS: Morphine TAB Extended Release (*) 15 MG TAB.ER PO SCH ×2 (03:53→10:44)
[2018-05-22 06:09] LABS: Hematocrit 34 % (35-47); Hemoglobin 11.8 g/dl (12.0-16.0); Mean Platelet Volume 7.3 um3 (7.4-10.4); Platelet Count 265 10^3/ul (150-450)
[2018-05-22 06:20] LABS: INR 1.1 (0.77-1.02)
[2018-05-22] MEDS: Cyclobenzaprine TAB* 10 MG PO PRN (06:38)
[2018-05-22 07:50] VITALS: BP 161/63
[2018-05-22] MEDS: Insulin LISPRO* 1 UNITS UNIT SUBCUT SCH (08:10)
[2018-05-22] MEDS: Diltiazem CD CAP* 240 MG PO SCH (08:15)
[2018-05-22] MEDS: FLUoxetine CAP* 20 MG PO SCH (08:15)
[2018-05-22] MEDS: Docusate CAP* 100 MG PO SCH (08:15)
[2018-05-22] MEDS: Hydrochlorothiazide TAB* 25 MG PO SCH (08:15)
[2018-05-22] MEDS: Magnesium Hydroxide LIQ* 30 ML UDC PO SCH (08:15)
--- NOTE | 2018-05-22 09:09 | PN ---
Progress Note - Progress Note Date of Service: 05/22/18 SOAP: Subjective: [Pt doing well. Pain much better controlled. Denies CP, SOB, nausea, dizziness , calf pain. Feels ready to go home.] Objective: [A and O x 3, NAD at bedside L knee dressing changed. Incision benign. No erythema or drainage. Skin edges well-approximated. Calf soft, NT. Distal gross motor and NV function intact Vital Signs: Temp Pulse Resp BP Pulse Ox 99.0 F 82 18 161/63 97 05/22/18 07:33 05/22/18 07:33 05/22/18 07:33 05/22/18 07:33 05/22/18 07:33 Laboratory Results - last 24 hr 05/21/18 05/21/18 05/22/18 11:48 16:36 06:02 Hgb 11.8 L Hct 34 L Plt Count 265 MPV 7.3 L INR (Anticoag Therapy) POC Glucose (mg/dL) 107 H 104 H 05/22/18 05/22/18 06:02 07:51 Hgb Hct Plt Count MPV INR (Anticoag Therapy) 1.10 H POC Glucose (mg/dL) 123 H ] Assessment: [57 yo female s/p L TKA POD #2 doing well] Plan: [D/C home Percocet 10/325 and MS Contin for pain control Coumadin - 10 mg today WBAT LLE F/U with Dr. Mireles in two weeks]
--- NOTE | 2018-05-22 11:31 | DS ---
DISCHARGE SUMMARY: DATE OF ADMISSION: 05/20/18 DATE OF DISCHARGE: 05/22/18 ATTENDING PHYSICIAN: Dr. Asya Mireles* (dictated by ISA Green). ADMITTING DIAGNOSES: 1. Left knee osteoarthritis. 2. Hypertension. 3. Diabetes. 4. Cervical cancer. 5. Depression/anxiety. DISCHARGE DIAGNOSES: 1. Status post left total knee arthroplasty. 2. Hypertension. 3. Diabetes. 4. Cervical cancer. 5. Depression and anxiety. PROCEDURE: Left total knee arthroplasty. CONSULTATIONS: Physical Therapy, Occupational Therapy, and Medicine. BRIEF HISTORY: Ms. Nugent is a 57-year-old female with severe end-stage left knee arthritis. She failed conservative treatment and elected to undergo a left total knee arthroplasty on 05/20/[address] Mireles. HOSPITAL COURSE: Ms. Nugent was admitted to [facility] on 05/20/18 and underwent an uncomplicated left total knee arthroplasty. Postoperatively, she recovered in the short-stay unit. On postop day 1, her Morelos catheter was removed and she was able to urinate on her own. She was advanced to carb-controlled diet without problems. She did have some pain issues and pain medication was adjusted postop day 1 and during the evening of postop day 1. On postop day 2, her pain was much better controlled with p.o. Percocet 10/325 and MS Contin. She was restarted on home medications. Labs and vital signs remained stable. DVT prophylaxis was managed with Lovenox and Coumadin. She advanced appropriately with Physical Therapy and Occupational Therapy. On postoperative day #2, she was orthopedically and medically stable to be discharged home with services. PHYSICAL EXAMINATION: General: Well nourished, well developed, in no acute distress. Alert and oriented. Left knee dressing clean, dry, and intact. Surgical incision is benign. She has good dorsiflexion and plantar flexion, which are equal bilaterally. 2+ DP pulse. Sensation is intact to light touch. Calf is soft and nontender. Vital Signs: Temperature 99.0 degrees Fahrenheit , pulse rate 82, respiratory rate 18, O2 sat on room air 97%, blood pressure 161 /63. DIAGNOSTIC STUDIES/LAB DATA: On date of discharge, H and H 11.8/34. INR 1.10. Radiographs: Postoperative radiographs of the left knee demonstrate a left total knee arthroplasty with satisfactory prosthetic placement and no acute bony abnormalities. DISCHARGE MEDICATIONS: 1. Calcium. 2. Diltiazem 240 mg daily. 3. Fluoxetine 40 mg daily. 4. Glucosamine/chondroitin. 5. Hydrochlorothiazide 25 mg daily. 6. Metformin 500 mg twice a day. 7. Mometasone furoate as needed. 8. Multivitamin. 9. Trazodone 100 mg 2 tabs q.h.s. 10. Vitamin B12. 11. Vitamin C. 12. Percocet 10/325 one to two tabs p.o. q.4 to 6 hours p.r.n. pain. 13. Coumadin 2 mg as directed. 14. Colace p.r.n. constipation. CONDITION ON DISCHARGE: Stable. DISCHARGE INSTRUCTIONS: Ms. Nugent is a 57-year-old female, postoperative day 2 status post left total knee arthroplasty, which was uncomplicated. She is orthopedically and medically stable to be discharged home with services. She will restart her home medications. She will take Coumadin for DVT prophylaxis and has been instructed to take 10 mg today, , 05/22/18; 8 mg on Saturday ; 10 mg on Saturday; 8 mg on Saturday. She will have nurse services draw blood and check her INR on Mondays and and Coumadin dosage will be adjusted as necessary. She will remain weightbearing as tolerated on the left lower extremity. She will receive home physical therapy. She will use Percocet 10/ 325 and MS Contin as needed for pain. She will take Colace up to twice a day for constipation. She will follow up with Dr. Mireles in approximately 2 weeks for incision check and suture removal. She will call the office immediately should she develop fever, increasing pain, or increasing redness. She was instructed to go to the emergency room should she develop chest pain or shortness of breath. ISA GREEN [id number]/[facility] #: [id number] [place]
[2018-05-23] MEDS ORDERED: Scopolamine PATCH Remove* 1 NOTE MISC PATCH OFF ONE (06:00)
== END 2018-05-22 11:00 | disposition home health service (06) | DRG 302 ==
LOC: AA 05-20 07:34 → SSU 05-20 12:12
PROVIDERS: ADMIT Orthopaedic Surgery Adult Reconstructive Orthopaedic Surgery; ATTEND Orthopaedic Surgery Adult Reconstructive Orthopaedic Surgery
PROC: 0SRD069 Replacement of Left Knee Joint with Oxidized Zirconium on Polyethylene Synthetic Substitute, Cemented, Open Approach (ICD-10-PCS; principal; 2018-05-20 09:00)
DX: M17.12 Unilateral primary osteoarthritis, left knee (principal); Z68.42 Body mass index [BMI] 45.0-49.9, adult; I10 Essential (primary) hypertension; E11.9 Type 2 diabetes mellitus without complications; F32.9 Major depressive disorder, single episode, unspecified; F41.9 Anxiety disorder, unspecified; M25.462 Effusion, left knee; M21.162 Varus deformity, not elsewhere classified, left knee; E66.9 Obesity, unspecified; E78.00 Pure hypercholesterolemia, unspecified; M25.762 Osteophyte, left knee; Z79.01 Long term (current) use of anticoagulants; Z82.49 Family history of ischemic heart disease and other diseases of the circulatory system; Z80.8 Family history of malignant neoplasm of other organs or systems; Z79.84 Long term (current) use of oral hypoglycemic drugs; Z81.8 Family history of other mental and behavioral disorders; Z72.89 Other problems related to lifestyle; Z85.41 Personal history of malignant neoplasm of cervix uteri; Z80.42 Family history of malignant neoplasm of prostate; Z87.891 Personal history of nicotine dependence; Z80.3 Family history of malignant neoplasm of breast
CPT/HCPCS: 36415; 71046; 80048; 85014; 85018; 85049; 85610; 88305; 88311; A9270-GY; C1776; J0360; J0690; J1650; J2250; J2270; J2704; J2795; J3010; J8540

== ENCOUNTER 2021-07-09 07:53 | Inpatient (IN) ==
[2021-07-09 09:35] LABS: Hematocrit 26 % (35-47); Hemoglobin 8.7 g/dL (12.0-16.0); Mean Corpuscular HGB Conc 33 g/dL (31-36); Mean Corpuscular Hemoglobin 31 pg (27-31); Mean Corpuscular Volume 93 fL (80-97); Mean Platelet Volume 7.3 fL (7.4-10.4); Platelet Count 489 10^3/uL (150-450); Red Blood Count 2.85 10^6 /uL (3.70-4.87); Red Cell Distribution Width 17 % (10-15); White Blood Count 8.1 10^3/uL (3.5-10.8)
[2021-07-09 09:38] LABS: ABS Eosinophils 0.1 10^3/ul (0-0.6); ABS Lymphocytes 1.1 10^3/ul (1.0-4.8); ABS Monocytes 0.9 10^3/ul (0-0.8); Eosinophil % 1.6 %; Lymphocyte % 13.3 %; Nucleated Red Blood Cells % 0.2
[2021-07-09 09:45] LABS: ALT 18 U/L (7-52); AST 13 U/L (13-39); Albumin 3.4 g/dL (3.2-5.2); Albumin/Globulin Ratio 0.8 (1-3); Alkaline Phosphatase 80 U/L (35-149); Anion Gap 9 mmol/L (2-11); Blood Urea Nitrogen 11 mg/dL (6-24); C Reactive Protein 183.26 mg/L (<8.01); CO2 Carbon Dioxide 30 mmol/L (22-32); Calcium 9.6 mg/dL (8.6-10.3); Chloride 99 mmol/L (101-111); EGFR Non-African American 86.8 (>60); Globulin 4.5 g/dL (2-4); Glucose 145 mg/dL (70-100); Lipase 14 U/L (11.0-82.0); Sodium 138 mmol/L (135-145); Total Protein 7.9 g/dL (6.4-8.9)
[2021-07-09] MEDS ORDERED: Iodixanol (CONTRAST) 320 MG/ML 100 ML SDV IV ONE (09:54)
[2021-07-09 10:33] LABS: % Iron Saturation 9 % (15-55); Iron 20 ug/dL (50-212); LDH 124 U/L (140-271); Total Iron Binding Capacity 218 mcg/dL (250-450); Transferrin 156 mg/dL (203-362); Unsaturated Iron Binding < 203 ug/dL
[2021-07-09 10:53] LABS: Ferritin 604.9 ng/mL (11-307)
[2021-07-09] MEDS ORDERED: Dextrose 50% Syringe 50 ml 25 GM/50 ML SYRINGE IV PUSH PRN (12:28)
[2021-07-09 13:13] LABS: Cholesterol 162 mg/dL; HDL Cholesterol 49.7 mg/dL; LDL Cholesterol 100 mg/dL; Triglycerides 61 mg/dL
[2021-07-09 13:56] LABS: Magnesium 1.9 mg/dL (1.9-2.7)
[2021-07-09 15:07] LABS: Troponin I 0.07 ng/mL (<0.03)
[2021-07-09] MEDS: Heparin 5000 UNITS/ML 1 mL VIAL SUBCUT SCH ×2 (17:57→21:57)
[2021-07-10 05:11] LABS: ABS Basophils 0.1 10^3/ul (0-0.2); ABS Eosinophils 0.2 10^3/ul (0-0.6); ABS Lymphocytes 0.9 10^3/ul (1.0-4.8); ABS Monocytes 0.8 10^3/ul (0-0.8); ABS Neutrophils 4.1 10^3/ul (1.5-7.7); Eosinophil % 2.6 %; Hematocrit 24 % (35-47); Hemoglobin 8.1 g/dL (12.0-16.0); Lymphocyte % 15.4 %; Mean Corpuscular HGB Conc 33 g/dL (31-36); Mean Corpuscular Hemoglobin 31 pg (27-31); Mean Corpuscular Volume 93 fL (80-97); Mean Platelet Volume 7.1 fL (7.4-10.4); Nucleated Red Blood Cells % 0.1; Platelet Count 400 10^3/uL (150-450); Red Blood Count 2.64 10^6 /uL (3.70-4.87); Red Cell Distribution Width 17 % (10-15)
[2021-07-10 05:26] LABS: Calcium 9.3 mg/dL (8.6-10.3); EGFR African American 103.3 (>60); EGFR Non-African American 85.4 (>60); Potassium 3.8 mmol/L (3.5-5.0)
[2021-07-10] MEDS: Heparin 5000 UNITS/ML 1 mL VIAL SUBCUT SCH ×2 (06:09→13:37)
[2021-07-10] MEDS ORDERED: CHONDROITIN PO SCH (09:00)
[2021-07-10] MEDS ORDERED: GLUCOSAMINE PO SCH (09:00)
[2021-07-10 10:51] LABS: Folate 17.7 ng/mL (5.90-24.80)
[2021-07-10] MEDS ORDERED: Gadoteridol (CONTRAST) 279.3 MG/ML 10 ML IV ONE (13:23)
[2021-07-10] MEDS ORDERED: Iodixanol (CONTRAST) 320 MG/ML 100 ML SDV IV ONE (13:25)
[2021-07-10 18:01] VITALS: BP 128/64
== END 2021-07-10 18:00 | disposition home or self-care (01) | DRG 952 ==
LOC: ED 07:53 → AA 12:13 → SUATTDRO 12:13 → MED 17:25
PROVIDERS: ADMIT Hospitalist; ATTEND Internal Medicine

== ENCOUNTER 2022-02-18 08:51 | Inpatient (IN) ==
[2022-02-18] MEDS ORDERED: Ondansetron 4 mg VIAL 2 MG/ML 2 ml VIAL IV ONE (09:10)
[2022-02-18] MEDS ORDERED: Lactated Ringers 1000 ml BAG 1,000 ML IV ONE ×2 (09:10→10:34)
[2022-02-18] MEDS ORDERED: Acetaminophen IV 1 GM/100ML 100 ML IV ONE (09:11)
[2022-02-18 09:59] LABS: ABS Basophils 0.1 10^3/ul (0-0.2); ABS Eosinophils 0.2 10^3/ul (0-0.6); ABS Lymphocytes 2.3 10^3/ul (1.0-4.8); ABS Monocytes 0.7 10^3/ul (0-0.8); ABS Neutrophils 6.1 10^3/ul (1.5-7.7); Eosinophil % 1.9 %; Hematocrit 42 % (35-47); Hemoglobin 14.7 g/dL (12.0-16.0); Lymphocyte % 24.4 %; Mean Corpuscular HGB Conc 35 g/dL (31-36); Mean Corpuscular Hemoglobin 35 pg (27-31); Mean Corpuscular Volume 100 fL (80-97); Mean Platelet Volume 8.6 fL (7.4-10.4); Platelet Count 318 10^3/uL (150-450); Red Blood Count 4.17 10^6 /uL (3.70-4.87); Red Cell Distribution Width 15 % (10-15); White Blood Count 9.3 10^3/uL (3.5-10.8)
[2022-02-18 10:10] LABS: Activated Partial Thrombo Time 38.3 seconds (26.0-38.0); INR 1.29 (0.86-1.15)
[2022-02-18 10:33] LABS: Albumin 4.1 g/dL (3.2-5.2); Albumin/Globulin Ratio 1.4 (1-3); C Reactive Protein 114.67 mg/L (<8.01); Calcium 9.7 mg/dL (8.6-10.3); Globulin 2.9 g/dL (2-4); Magnesium 1.4 mg/dL (1.9-2.7); Total Bilirubin 1.3 mg/dL (0.2-1.0); eGFR CKD-EPI 29.1 (>60)
[2022-02-18] MEDS ORDERED: Magnesium Sulfate 2 gm BAG 2 GM/50 ML BAG IVPB ONE (10:35)
[2022-02-18 11:03] LABS: PCO2 Arterial 35 mmHg (35-45); PO2 Arterial 72 mmHg (80-100)
[2022-02-18 11:18] LABS: High Sensitivity Troponin 1 Hr 45 pg/mL (<15)
[2022-02-18] MEDS: KCL 20 MEQ/100 ML IVPREMIX 20 MEQ/100 ML BAG IV SCH ×3 (11:22→16:12)
[2022-02-18 14:37] LABS: Urine Appearance Cloudy; Urine Bilirubin Negative (Negative); Urine Blood Negative (Negative); Urine Color Amber; Urine Glucose Negative (Negative); Urine Ketones 1+ (Negative); Urine Nitrite Negative (Negative); Urine Protein Negative (Negative); Urine Specific Gravity 1.024 (1.002-1.030); Urine Urobilinogen Negative (Negative)
[2022-02-18 14:46] LABS: Urine Creatinine Concentration 201.53 mg/dL
[2022-02-18 14:47] LABS: Urine Amorphous Crystals Present (Absent); Urine Bacteria Absent (Absent); Urine Red Blood Cell 3+(>10/hpf) (Absent); Urine Squamous Epithelial Cell Present (Absent); Urine White Blood Cell 3+(>20/hpf) (Absent)
[2022-02-18] MEDS ORDERED: Nystatin TOP POWDER 15 GM BTL TOPICAL SCH (16:30)
[2022-02-18] MEDS ORDERED: Nystatin SUSPENSION 100,000 UNITS/ML UDC PO SCH (17:00)
[2022-02-18] MEDS: NS 0.9% 1000 ml BAG 1,000 ML IV SCH (18:19)
[2022-02-18 19:05] LABS: TSH Ultra Thyroid Stim Horm 94.66 mcIU/mL (0.34-5.60)
[2022-02-19] MEDS: Magic MouthWash2-BEN/MAAL/LIDO/NYST 240 ML BTL (alt formulation) SWISH SWAL SCH ×5 (00:40→21:32)
[2022-02-19] MEDS: Nystatin TOP POWDER 15 GM BTL TOPICAL SCH ×4 (00:41→21:33)
[2022-02-19] MEDS: oxyCODONE/Acetamin 5/325 mg TAB PO PRN ×2 (01:11→09:11)
[2022-02-19] MEDS: NS 0.9% 1000 ml BAG 1,000 ML IV SCH ×2 (04:43→16:22)
[2022-02-19 05:20] LABS: Magnesium 1.9 mg/dL (1.9-2.7); Potassium 3.5 mmol/L (3.5-5.0); eGFR CKD-EPI 40.4 (>60)
[2022-02-19] MEDS ORDERED: oxyCODONE/Acetamin 5/325 mg TAB PO PRN (10:16)
[2022-02-19] MEDS: Fluconazole 100 MG IVPREMIX 100 MG/50 ML BAG IVPB SCH (12:15)
[2022-02-19] MEDS: Morphine ORAL.SOLN 10 mg 2 mg/ml UDC 5 ml (10 mg) PO PRN ×2 (14:11→21:34)
[2022-02-19] MEDS: Heparin 5000 UNITS/ML 1 mL VIAL SUBCUT SCH (21:35)
[2022-02-20] MEDS: NS 0.9% 1000 ml BAG 1,000 ML IV SCH ×3 (01:22→20:10)
[2022-02-20] MEDS: Morphine ORAL.SOLN 10 mg 2 mg/ml UDC 5 ml (10 mg) PO PRN ×4 (03:37→18:01)
[2022-02-20] MEDS: Senna TAB 8.6 mg TAB PO PRN (03:40)
[2022-02-20] MEDS: Heparin 5000 UNITS/ML 1 mL VIAL SUBCUT SCH ×3 (06:13→20:02)
[2022-02-20 06:40] LABS: ABS Eosinophils 0.2 10^3/ul (0-0.6); ABS Lymphocytes 1.2 10^3/ul (1.0-4.8); ABS Monocytes 0.3 10^3/ul (0-0.8); ABS Neutrophils 2.8 10^3/ul (1.5-7.7); Eosinophil % 4.3 %; Hematocrit 35 % (35-47); Hemoglobin 12.3 g/dL (12.0-16.0); Lymphocyte % 25.9 %; Mean Corpuscular HGB Conc 35 g/dL (31-36); Mean Corpuscular Hemoglobin 35 pg (27-31); Mean Corpuscular Volume 101 fL (80-97); Mean Platelet Volume 8.3 fL (7.4-10.4); Nucleated Red Blood Cells % 0.1; Platelet Count 242 10^3/uL (150-450); Red Cell Distribution Width 15 % (10-15); White Blood Count 4.6 10^3/uL (3.5-10.8)
[2022-02-20 07:12] LABS: C Reactive Protein 90.35 mg/L (<8.01); Calcium 8.7 mg/dL (8.6-10.3); Potassium 3.4 mmol/L (3.5-5.0); eGFR CKD-EPI 56.6 (>60)
[2022-02-20] MEDS: Magic MouthWash2-BEN/MAAL/LIDO/NYST 240 ML BTL (alt formulation) SWISH SWAL SCH ×4 (09:06→20:03)
[2022-02-20] MEDS: Potassium Chlor 20 meq TAB.ER PO SCH ×2 (09:06→12:16)
[2022-02-20] MEDS: Nystatin TOP POWDER 15 GM BTL TOPICAL SCH ×3 (09:07→20:03)
[2022-02-20] MEDS: Fluconazole 100 MG IVPREMIX 100 MG/50 ML BAG IVPB SCH (11:12)
[2022-02-20] MEDS: Pantoprazole VIAL 40 MG VIAL IV SCH (12:16)
[2022-02-20] MEDS ORDERED: Thiamine 100 MG/ML 2 ml VIAL (200 mg) IM ONE (18:00)
[2022-02-20 20:36] LABS: Free T4 0.41 ng/dL (0.61-1.12)
[2022-02-21] MEDS: Heparin 5000 UNITS/ML 1 mL VIAL SUBCUT SCH ×3 (05:16→20:45)
[2022-02-21] MEDS: NS 0.9% 1000 ml BAG 1,000 ML IV SCH (05:31)
[2022-02-21 05:38] LABS: ABS Eosinophils 0.2 10^3/ul (0-0.6); ABS Lymphocytes 1.3 10^3/ul (1.0-4.8); ABS Monocytes 0.4 10^3/ul (0-0.8); ABS Neutrophils 2.2 10^3/ul (1.5-7.7); Eosinophil % 4.2 %; Hematocrit 34 % (35-47); Hemoglobin 11.8 g/dL (12.0-16.0); Lymphocyte % 31.7 %; Mean Corpuscular HGB Conc 35 g/dL (31-36); Mean Corpuscular Hemoglobin 36 pg (27-31); Mean Corpuscular Volume 102 fL (80-97); Mean Platelet Volume 8.1 fL (7.4-10.4); Platelet Count 224 10^3/uL (150-450); Red Blood Count 3.31 10^6 /uL (3.70-4.87); Red Cell Distribution Width 15 % (10-15); White Blood Count 4.1 10^3/uL (3.5-10.8)
[2022-02-21 06:20] LABS: Calcium 8.1 mg/dL (8.6-10.3); Potassium 3.8 mmol/L (3.5-5.0)
[2022-02-21 06:25] LABS: eGFR CKD-EPI 57.8 (>60)
[2022-02-21 09:50] LABS: HIV 4th Generation Nonreactive (Nonreactive)
[2022-02-21] MEDS ORDERED: Buffered Lidocaine 1% SYRIN 1 ml INTRADERM ONE (10:02)
[2022-02-21] MEDS ORDERED: Lactated Ringers 1000 ml BAG 1,000 ML IV SCH (11:00)
[2022-02-21] MEDS ORDERED: Phenylephrine 40 mcg/mL 10mL (400mcg) SYRINGE ONE (11:21)
[2022-02-21] MEDS: Fluconazole 100 MG IVPREMIX 100 MG/50 ML BAG IVPB SCH (12:52)
[2022-02-21] MEDS: Multivitamins/Minerals TAB PO SCH (12:53)
[2022-02-21] MEDS: Magic MouthWash2-BEN/MAAL/LIDO/NYST 240 ML BTL (alt formulation) SWISH SWAL SCH ×4 (12:54→20:46)
[2022-02-21] MEDS: Nystatin TOP POWDER 15 GM BTL TOPICAL SCH ×3 (13:07→20:46)
[2022-02-21] MEDS: Pantoprazole VIAL 40 MG VIAL IV SCH (13:08)
[2022-02-21] MEDS: Morphine ORAL.SOLN 10 mg 2 mg/ml UDC 5 ml (10 mg) PO PRN ×2 (13:10→20:50)
[2022-02-22] MEDS: Heparin 5000 UNITS/ML 1 mL VIAL SUBCUT SCH ×3 (05:44→21:06)
[2022-02-22] MEDS: Morphine ORAL.SOLN 10 mg 2 mg/ml UDC 5 ml (10 mg) PO PRN ×3 (05:46→21:05)
[2022-02-22 06:20] LABS: ABS Eosinophils 0.2 10^3/ul (0-0.6); ABS Lymphocytes 1.3 10^3/ul (1.0-4.8); ABS Monocytes 0.4 10^3/ul (0-0.8); ABS Neutrophils 1.8 10^3/ul (1.5-7.7); Eosinophil % 4.9 %; Hematocrit 30 % (35-47); Hemoglobin 10.5 g/dL (12.0-16.0); Lymphocyte % 34.3 %; Mean Corpuscular HGB Conc 35 g/dL (31-36); Mean Corpuscular Hemoglobin 36 pg (27-31); Mean Corpuscular Volume 101 fL (80-97); Mean Platelet Volume 8.2 fL (7.4-10.4); Nucleated Red Blood Cells % 0.1; Platelet Count 212 10^3/uL (150-450); Red Blood Count 2.97 10^6 /uL (3.70-4.87); Red Cell Distribution Width 15 % (10-15); White Blood Count 3.7 10^3/uL (3.5-10.8)
[2022-02-22 07:07] LABS: Magnesium 1.6 mg/dL (1.9-2.7); Potassium 3.6 mmol/L (3.5-5.0); eGFR CKD-EPI 58.4 (>60)
[2022-02-22] MEDS ORDERED: Magnesium Sulfate 2 gm BAG 2 GM/50 ML BAG IVPB ONE (08:11)
[2022-02-22] MEDS: Multivitamins/Minerals TAB PO SCH (08:23)
[2022-02-22] MEDS: Pantoprazole VIAL 40 MG VIAL IV SCH (08:23)
[2022-02-22] MEDS: Magic MouthWash2-BEN/MAAL/LIDO/NYST 240 ML BTL (alt formulation) SWISH SWAL SCH ×4 (08:24→21:08)
[2022-02-22] MEDS: Nystatin TOP POWDER 15 GM BTL TOPICAL SCH ×4 (09:18→21:14)
[2022-02-22] MEDS ORDERED: CALCIUM GLUCONATE 1GM/50ML NS 1 GM/50 ML BAG IV ONE (09:30)
[2022-02-22] MEDS: Fluconazole 100 MG IVPREMIX 100 MG/50 ML BAG IVPB SCH (12:44)
[2022-02-22] MEDS: Senna TAB 8.6 mg TAB PO PRN (21:29)
[2022-02-23] MEDS: Heparin 5000 UNITS/ML 1 mL VIAL SUBCUT SCH (06:20)
[2022-02-23 06:48] LABS: ABS Eosinophils 0.2 10^3/ul (0-0.6); ABS Lymphocytes 1.4 10^3/ul (1.0-4.8); ABS Monocytes 0.5 10^3/ul (0-0.8); ABS Neutrophils 1.7 10^3/ul (1.5-7.7); Eosinophil % 4.6 %; Hematocrit 30 % (35-47); Hemoglobin 10.5 g/dL (12.0-16.0); Lymphocyte % 37.8 %; Mean Corpuscular HGB Conc 35 g/dL (31-36); Mean Corpuscular Hemoglobin 36 pg (27-31); Mean Corpuscular Volume 102 fL (80-97); Mean Platelet Volume 8.2 fL (7.4-10.4); Nucleated Red Blood Cells % 0.1; Platelet Count 226 10^3/uL (150-450); Red Blood Count 2.94 10^6 /uL (3.70-4.87); Red Cell Distribution Width 16 % (10-15); White Blood Count 3.8 10^3/uL (3.5-10.8)
[2022-02-23 07:16] LABS: Calcium 8.4 mg/dL (8.6-10.3); Magnesium 1.8 mg/dL (1.9-2.7); Potassium 3.6 mmol/L (3.5-5.0); eGFR CKD-EPI 55.4 (>60)
[2022-02-23] MEDS: Multivitamins/Minerals TAB PO SCH (08:37)
[2022-02-23] MEDS: Pantoprazole VIAL 40 MG VIAL IV SCH (08:38)
[2022-02-23] MEDS: Magic MouthWash2-BEN/MAAL/LIDO/NYST 240 ML BTL (alt formulation) SWISH SWAL SCH (08:39)
[2022-02-23] MEDS: Morphine ORAL.SOLN 10 mg 2 mg/ml UDC 5 ml (10 mg) PO PRN (08:40)
[2022-02-23] MEDS: Nystatin TOP POWDER 15 GM BTL TOPICAL SCH (08:40)
[2022-02-23 11:25] VITALS: BP 128/67
[2022-02-23 12:02] LABS: Free T4 0.48 ng/dL (0.61-1.12)
== END 2022-02-23 14:22 | disposition home or self-care (01) | DRG 723 ==
LOC: ED 08:51 → SUATTDRO 16:04 → EDHOLD 16:04 → MED 22:24
PROVIDERS: ADMIT Nurse Practitioner; ATTEND Internal Medicine
PROC: O.GIEGD (2022-02-21 10:55)

== ENCOUNTER 2022-02-26 05:58 | Inpatient (IN) ==
[2022-02-26] MEDS ORDERED: Lactated Ringers 1000 ml BAG 1,000 ML IV ONE ×3 (06:31→08:59)
[2022-02-26 07:02] LABS: PCO2 Arterial 31 mmHg (35-45); PO2 Arterial 92 mmHg (80-100)
[2022-02-26] MEDS ORDERED: Vancomycin 1,000 MG in NS 0.9% 250 ml 250 ML IVPB ONE ×2 (07:11→13:13)
[2022-02-26] MEDS ORDERED: Piperacillin/Tazobac ADVAN 3.375 GM in NS 0.9% 100 ml BAG 100 ML IV ONE (07:11)
[2022-02-26 07:29] LABS: Hematocrit 31 % (35-47); Mean Corpuscular HGB Conc 35 g/dL (31-36); Mean Corpuscular Hemoglobin 36 pg (27-31); Mean Corpuscular Volume 103 fL (80-97); Mean Platelet Volume 8.3 fL (7.4-10.4); Platelet Count 322 10^3/uL (150-450); Red Blood Count 3.04 10^6 /uL (3.70-4.87); Red Cell Distribution Width 14 % (10-15); White Blood Count 10.9 10^3/uL (3.5-10.8)
[2022-02-26 07:34] LABS: INR 1.54 (0.86-1.15)
[2022-02-26 07:55] LABS: ABS Eosinophils 0.1 10^3/ul (0-0.6); ABS Lymphocytes 1.2 10^3/ul (1.0-4.8); ABS Monocytes 0.8 10^3/ul (0-0.8); ABS Neutrophils 8.7 10^3/ul (1.5-7.7); Eosinophil % 1.3 %; Lymphocyte % 10.9 %; Macrocytosis 1+
[2022-02-26 08:15] LABS: Albumin 3.1 g/dL (3.2-5.2); Albumin/Globulin Ratio 1.3 (1-3); Calcium 8.7 mg/dL (8.6-10.3); Globulin 2.3 g/dL (2-4); Magnesium 1.4 mg/dL (1.9-2.7); Total Bilirubin 1.3 mg/dL (0.2-1.0); Total Protein 5.4 g/dL (6.4-8.9); eGFR CKD-EPI 11.7 (>60)
[2022-02-26] MEDS ORDERED: KCL 10 MEQ/50 ML IVPREMIX 10 MEQ/50 ML BAG IV ONE (08:43)
[2022-02-26] MEDS ORDERED: KCL 20 MEQ/100 ML IVPREMIX 20 MEQ/100 ML BAG IV SCH (09:00)
[2022-02-26 09:04] LABS: High Sensitivity Troponin 1 Hr 15 pg/mL (<15)
[2022-02-26 09:55] LABS: Urine Appearance Cloudy; Urine Bilirubin Negative (Negative); Urine Blood 1+ (Negative); Urine Color Yellow; Urine Glucose Negative (Negative); Urine Ketones Negative (Negative); Urine Nitrite Negative (Negative); Urine Protein Negative (Negative); Urine Specific Gravity 1.011 (1.002-1.030); Urine Urobilinogen Negative (Negative)
[2022-02-26 10:01] LABS: Urine Bacteria Absent (Absent); Urine Red Blood Cell 1+(3-5/hpf) (Absent); Urine Squamous Epithelial Cell Present (Absent); Urine White Blood Cell 1+(6-10/hpf) (Absent)
[2022-02-26] MEDS ORDERED: Lorazepam PYXIS KEY PRN ×2 (10:29→14:34)
[2022-02-26] MEDS ORDERED: LORazepam 2 mg VIAL 1 ml IV PUSH ONE ×2 (10:29→14:34)
[2022-02-26] MEDS: Norepinephrine 16MCG/ML BAG NS 4,000 MCG/250 ML BAG IV SCH ×2 (11:20→18:15)
[2022-02-26 12:19] LABS: Blood Urea Nitrogen 21 mg/dL (6-24); CO2 Carbon Dioxide 21 mmol/L (22-32); Calcium 7.7 mg/dL (8.6-10.3); Chloride 99 mmol/L (101-111); Glucose 87 mg/dL (70-100); Sodium 132 mmol/L (135-145); eGFR CKD-EPI 12.7 (>60)
[2022-02-26] MEDS ORDERED: NS 0.9% IVPB ONE (13:09)
[2022-02-26] MEDS ORDERED: ACYCLOVIR IVPB ONE (13:09)
[2022-02-26] MEDS ORDERED: Dextrose 50% Syringe 50 ml 25 GM/50 ML SYRINGE IV PUSH PRN (13:13)
[2022-02-26 13:33] LABS: Anion Gap 12 mmol/L (2-11)
[2022-02-26] MEDS ORDERED: Vancomycin per Pharmacy 1 EA NOTE FOLLOW UP SCH (14:00)
[2022-02-26] MEDS ORDERED: Magnesium Sulfate 2 gm BAG 2 GM/50 ML BAG IVPB ONE (14:04)
[2022-02-26] MEDS ORDERED: Phytonadione IV (Adult) 10 MG in NS 0.9% 50 ML 50 ML IV ONE (14:19)
[2022-02-26] MEDS: Acyclovir IV 570 MG in NS 0.9% 100 ml BAG 100 ML IVPB SCH (14:29)
[2022-02-26] MEDS: Fluconazole 200 MG IVPREMIX 200 MG/100 ML BAG IVPB SCH (15:47)
[2022-02-26] MEDS ORDERED: Thiamine 100 MG/ML 2 ml VIAL 500 MG in NS 0.9% 250 ml 250 ML IV ONE (16:50)
[2022-02-26] MEDS ORDERED: Norepinephrine 16MCG/ML BAGD5W 0 MCG/0 ML BAG IV ONE (17:32)
[2022-02-26] MEDS: Lactated Ringers 1000 ml BAG 1,000 ML IV SCH (17:53)
[2022-02-26] MEDS ORDERED: NS 0.9% 250 ml 250 ML ONE (18:50)
[2022-02-26] MEDS ORDERED: Norepinephrine 16MCG/ML BAG NS 4,000 MCG/250 ML BAG IV SCH (20:26)
[2022-02-26] MEDS ORDERED: NS 0.9% 100 ml BAG 100 ML ONE (20:27)
[2022-02-26] MEDS: cefTRIAXone 2 GM ADDV.VIAL 2 GM in NS 0.9% 100 ml BAG 100 ML IV SCH (20:35)
[2022-02-26] MEDS ORDERED: Lactated Ringers 1000 ml BAG 1,000 ML IV SCH (21:00)
[2022-02-26] MEDS ORDERED: PHENYLEPHRINE DRIP IVPREMIX 50 MG/250 ML BAG IV SCH (21:00)
[2022-02-26] MEDS ORDERED: Norepinephrine *QUAD STRENGTH* 16 mg/250 mL NS per protocol IV SCH (22:30)
[2022-02-26] MEDS: Acetaminophen IV 1 GM/100ML 100 ML IV PRN ×2 (22:34→23:10)
[2022-02-27] MEDS: Lactated Ringers 1000 ml BAG 1,000 ML IV SCH ×2 (03:13→22:32)
[2022-02-27 05:48] LABS: ABS Eosinophils 0.2 10^3/ul (0-0.6); ABS Lymphocytes 1.1 10^3/ul (1.0-4.8); ABS Monocytes 0.9 10^3/ul (0-0.8); ABS Neutrophils 2.8 10^3/ul (1.5-7.7); Hematocrit 29 % (35-47); Hemoglobin 9.8 g/dL (12.0-16.0); Lymphocyte % 22.6 %; Mean Corpuscular HGB Conc 34 g/dL (31-36); Mean Corpuscular Hemoglobin 35 pg (27-31); Mean Corpuscular Volume 103 fL (80-97); Mean Platelet Volume 8.2 fL (7.4-10.4); Nucleated Red Blood Cells % 0.2; Platelet Count 283 10^3/uL (150-450); Red Blood Count 2.79 10^6 /uL (3.70-4.87); Red Cell Distribution Width 14 % (10-15); White Blood Count 5.1 10^3/uL (3.5-10.8)
[2022-02-27] MEDS: cefTRIAXone 2 GM ADDV.VIAL 2 GM in NS 0.9% 100 ml BAG 100 ML IV SCH ×2 (05:52→17:57)
[2022-02-27 06:00] LABS: INR 1.48 (0.86-1.15)
[2022-02-27] MEDS ORDERED: Vancomycin Random Level NOTE FOLLOW UP ONE (06:00)
[2022-02-27 06:32] LABS: Calcium 7.5 mg/dL (8.6-10.3); Magnesium 1.8 mg/dL (1.9-2.7); Potassium 3.2 mmol/L (3.5-5.0); Vancomycin Random 8.4 mcg/mL; eGFR CKD-EPI 10.5 (>60)
[2022-02-27] MEDS ORDERED: Magnesium Sulfate 2 gm BAG 2 GM/50 ML BAG IVPB ONE (06:57)
[2022-02-27] MEDS ORDERED: NS 0.9% 100 ml BAG 100 ML ONE ×3 (08:51→18:08)
[2022-02-27] MEDS: KCL 10 MEQ/50 ML IVPREMIX 10 MEQ/50 ML BAG IV SCH ×6 (08:53→21:24)
[2022-02-27] MEDS: Levothyroxine 100 MCG/5 ML VIAL IV SCH (08:54)
[2022-02-27] MEDS: Pantoprazole VIAL 40 MG VIAL IV SCH (08:55)
[2022-02-27] MEDS ORDERED: Vancomycin 1,250 MG in NS 0.9% 250 ml 250 ML IVPB ONE (12:00)
[2022-02-27] MEDS ORDERED: NS 0.9% 250 ml 250 ML ONE (14:16)
[2022-02-27] MEDS: Acyclovir IV 570 MG in NS 0.9% 100 ml BAG 100 ML IVPB SCH (14:54)
[2022-02-27 15:32] LABS: INR 1.29 (0.86-1.15)
[2022-02-27] MEDS ORDERED: fentaNYL 100 mcg/2 ml 50 MCG/ML VIAL ONE ×2 (15:47→16:10)
[2022-02-27] MEDS ORDERED: Midazolam 5 mg/5 ml VIAL 1 mg/ml 5 ml VIAL (5 mg) ONE (16:10)
[2022-02-27] MEDS ORDERED: Midazolam 2 mg/2 ml VIAL 1 mg/ml 2 ml VIAL (2 mg) IV SLOW PU ONE (16:35)
[2022-02-27] MEDS ORDERED: fentaNYL 100 mcg/2 ml 50 MCG/ML VIAL IV SLOW PU ONE (16:36)
[2022-02-27] MEDS: Fluconazole 200 MG IVPREMIX 200 MG/100 ML BAG IVPB SCH (16:49)
[2022-02-27 16:50] LABS: Body Fluid Source Cerebral Spinal
[2022-02-27 16:54] LABS: Body Fluid Appearance Clear; Body Fluid Color Colorless; CSF Tube # 4
[2022-02-27] MEDS ORDERED: Norepinephrine 16MCG/ML BAGD5W 4,000 MCG/250 ML BAG IV SCH (17:00)
[2022-02-27 17:08] LABS: CSF Glucose 65 mg/dL (40-70)
[2022-02-27] MEDS ORDERED: Lactated Ringers 500 ml BAG 500 ML IV ONE (17:38)
[2022-02-27 17:39] LABS: Calcium 7.5 mg/dL (8.6-10.3); Potassium 3.2 mmol/L (3.5-5.0); eGFR CKD-EPI 11.3 (>60)
[2022-02-27 18:21] LABS: Body Fluid Mono 6 %; Body Fluid Total Cells Counted 89
[2022-02-27 18:47] LABS: Body Fluid WBC 10 /mcL
[2022-02-27] MEDS: Nystatin TOP POWDER 15 GM BTL TOPICAL SCH (22:32)
[2022-02-28 02:03] LABS: Urine Creatinine Concentration 76.6 mg/dL
[2022-02-28] MEDS: Lactated Ringers 1000 ml BAG 1,000 ML IV SCH (04:16)
[2022-02-28 04:33] LABS: ABS Eosinophils 0.2 10^3/ul (0-0.6); ABS Lymphocytes 0.7 10^3/ul (1.0-4.8); ABS Monocytes 0.4 10^3/ul (0-0.8); ABS Neutrophils 2.3 10^3/ul (1.5-7.7); Eosinophil % 5.4 %; Hematocrit 26 % (35-47); Hemoglobin 8.9 g/dL (12.0-16.0); Lymphocyte % 19.9 %; Mean Corpuscular HGB Conc 35 g/dL (31-36); Mean Corpuscular Hemoglobin 36 pg (27-31); Mean Corpuscular Volume 103 fL (80-97); Mean Platelet Volume 7.8 fL (7.4-10.4); Nucleated Red Blood Cells % 0.3; Platelet Count 216 10^3/uL (150-450); Red Blood Count 2.52 10^6 /uL (3.70-4.87); Red Cell Distribution Width 15 % (10-15); White Blood Count 3.7 10^3/uL (3.5-10.8)
[2022-02-28 05:02] LABS: Calcium 7.6 mg/dL (8.6-10.3); Potassium 3.5 mmol/L (3.5-5.0); Vancomycin Random 15.4 mcg/mL
[2022-02-28] MEDS ORDERED: Vancomycin Random Level NOTE FOLLOW UP ONE (06:00)
[2022-02-28] MEDS: Levothyroxine 100 MCG/5 ML VIAL IV SCH (06:17)
[2022-02-28] MEDS: cefTRIAXone 2 GM ADDV.VIAL 2 GM in NS 0.9% 100 ml BAG 100 ML IV SCH ×2 (06:18→17:33)
[2022-02-28] MEDS ORDERED: Lorazepam PYXIS KEY PRN ×2 (08:30→11:03)
[2022-02-28] MEDS ORDERED: LORazepam 2 mg VIAL 1 ml ONE (08:37)
[2022-02-28] MEDS: Nystatin TOP POWDER 15 GM BTL TOPICAL SCH ×3 (08:40→20:54)
[2022-02-28] MEDS: LORazepam 2 mg VIAL 1 ml IV PUSH PRN (08:41)
[2022-02-28] MEDS ORDERED: Vancomycin 1,250 MG IV x ONCE IVPB ONE (09:00)
[2022-02-28] MEDS ORDERED: methylPREDNISolone SOD SUCC 1,000 MG in NS 0.9% 250 ml 250 ML IVPB ONE (10:00)
[2022-02-28] MEDS: Pantoprazole VIAL 40 MG VIAL IV SCH (10:32)
[2022-02-28] MEDS ORDERED: D5W 1/2 NS 1000 ml BAG 1,000 ML IV SCH (11:00)
[2022-02-28] MEDS ORDERED: LORazepam 2 mg VIAL 1 ml IV PUSH ONE (11:03)
[2022-02-28] MEDS: methylPREDNISolone SOD SUCC 1,000 MG in NS 0.9% 250 ml 250 ML IVPB SCH (12:19)
[2022-02-28] MEDS: KCL 20 MEQ/100 ML IVPREMIX 20 MEQ/100 ML BAG IV SCH ×2 (12:27→14:40)
[2022-02-28] MEDS: NS 0.9% IVPB SCH ×2 (14:36→20:54)
[2022-02-28] MEDS: AMPICILLIN IVPB SCH ×2 (14:36→20:54)
[2022-02-28] MEDS: Acyclovir IV 570 MG in NS 0.9% 100 ml BAG 100 ML IVPB SCH (14:45)
[2022-02-28] MEDS: Fluconazole 200 MG IVPREMIX 200 MG/100 ML BAG IVPB SCH (15:59)
[2022-02-28] MEDS ORDERED: NS 0.9% 100 ml BAG 100 ML ONE ×2 (20:19)
[2022-02-28 21:07] LABS: Urine Potassium Concentration 27.7 mmol/L
[2022-02-28 21:37] LABS: Osmolality Serum 299 mOsm/kg (275-295)
[2022-02-28 21:39] LABS: Urine Osmo 293 mOsm/kg (150-1150)
[2022-03-01] MEDS ORDERED: NS 0.9% 100 ml BAG 100 ML ONE ×2 (03:06→05:39)
[2022-03-01] MEDS: AMPICILLIN IVPB SCH ×4 (04:38→20:13)
[2022-03-01] MEDS: NS 0.9% IVPB SCH ×4 (04:38→20:13)
[2022-03-01 04:47] LABS: ABS Lymphocytes 0.3 10^3/ul (1.0-4.8); ABS Monocytes 0.1 10^3/ul (0-0.8); Eosinophil % 0.2 %; Hematocrit 25 % (35-47); Hemoglobin 8.6 g/dL (12.0-16.0); Mean Corpuscular HGB Conc 35 g/dL (31-36); Mean Corpuscular Hemoglobin 35 pg (27-31); Mean Corpuscular Volume 102 fL (80-97); Mean Platelet Volume 7.9 fL (7.4-10.4); Nucleated Red Blood Cells % 0.3; Platelet Count 193 10^3/uL (150-450); Red Blood Count 2.44 10^6 /uL (3.70-4.87); Red Cell Distribution Width 15 % (10-15); White Blood Count 2.5 10^3/uL (3.5-10.8)
[2022-03-01] MEDS: cefTRIAXone 2 GM ADDV.VIAL 2 GM in NS 0.9% 100 ml BAG 100 ML IV SCH ×2 (05:43→17:41)
[2022-03-01] MEDS: Levothyroxine 100 MCG/5 ML VIAL IV SCH (05:44)
[2022-03-01 05:46] LABS: Calcium 7.6 mg/dL (8.6-10.3); Potassium 3.3 mmol/L (3.5-5.0)
[2022-03-01 05:52] LABS: eGFR CKD-EPI 25.3 (>60)
[2022-03-01] MEDS ORDERED: Vancomycin Random Level NOTE FOLLOW UP ONE (06:00)
[2022-03-01] MEDS: Nystatin TOP POWDER 15 GM BTL TOPICAL SCH ×2 (08:33→14:49)
[2022-03-01] MEDS: Pantoprazole VIAL 40 MG VIAL IV SCH (08:34)
[2022-03-01] MEDS: Acetaminophen IV 1 GM/100ML 100 ML IV PRN ×2 (08:39→21:13)
[2022-03-01] MEDS ORDERED: Vancomycin 1,250 MG in NS 0.9% 250 ml 250 ML IVPB ONE (10:00)
[2022-03-01] MEDS: KCL 20 MEQ/100 ML IVPREMIX 20 MEQ/100 ML BAG IV SCH ×3 (10:49→17:46)
[2022-03-01] MEDS ORDERED: Lorazepam PYXIS KEY PRN ×2 (13:26→15:15)
[2022-03-01] MEDS ORDERED: LORazepam 2 mg VIAL 1 ml IV PUSH ONE ×2 (13:27→15:15)
[2022-03-01] MEDS ORDERED: LORazepam 2 mg VIAL 1 ml ONE ×2 (13:31→15:17)
[2022-03-01] MEDS ORDERED: Lorazepam PYXIS KEY ONE ×2 (13:31→15:17)
[2022-03-01] MEDS ORDERED: Polyethylene Glycol 3350 17 GM PACKET ONE (13:33)
[2022-03-01] MEDS: Polyethylene Glycol 3350 17 GM PACKET PO PRN (13:35)
[2022-03-01] MEDS: methylPREDNISolone SOD SUCC 1,000 MG in NS 0.9% 250 ml 250 ML IVPB SCH (13:38)
[2022-03-01] MEDS: Acyclovir IV 570 MG in NS 0.9% 100 ml BAG 100 ML IVPB SCH (14:09)
[2022-03-01] MEDS: Fluconazole 200 MG IVPREMIX 200 MG/100 ML BAG IVPB SCH (15:12)
[2022-03-01 16:04] LABS: TSH Ultra Thyroid Stim Horm 9.93 mcIU/mL (0.34-5.60)
[2022-03-01 16:11] LABS: Free T4 0.56 ng/dL (0.61-1.12)
[2022-03-01 16:20] LABS: Vitamin B12 > 1450 pg/mL (180-914)
[2022-03-01] MEDS: Magnesium Hydroxide LIQ 30 ML UDC PO PRN ×2 (17:29→21:22)
[2022-03-02] MEDS: Nystatin TOP POWDER 15 GM BTL TOPICAL SCH ×4 (00:15→22:26)
[2022-03-02] MEDS: LORazepam 2 mg VIAL 1 ml IV PUSH PRN ×2 (00:32→18:31)
[2022-03-02 01:16] LABS: HSV 1 PCR, CSF Negative (Negative); HSV 2 PCR, CSF Negative (Negative)
[2022-03-02] MEDS: AMPICILLIN IVPB SCH ×3 (05:07→20:07)
[2022-03-02] MEDS: NS 0.9% IVPB SCH ×3 (05:07→20:07)
[2022-03-02] MEDS: Levothyroxine 100 MCG/5 ML VIAL IV SCH (06:00)
[2022-03-02] MEDS ORDERED: Vancomycin Random Level NOTE FOLLOW UP ONE (06:00)
[2022-03-02] MEDS: cefTRIAXone 2 GM ADDV.VIAL 2 GM in NS 0.9% 100 ml BAG 100 ML IV SCH (06:05)
[2022-03-02] MEDS: Pantoprazole VIAL 40 MG VIAL IV SCH (08:52)
[2022-03-02] MEDS ORDERED: Vancomycin 1,250 MG IV x ONCE IVPB ONE (09:00)
[2022-03-02 09:38] LABS: ABS Lymphocytes 0.7 10^3/ul (1.0-4.8); ABS Monocytes 0.6 10^3/ul (0-0.8); ABS Neutrophils 7.5 10^3/ul (1.5-7.7); Hematocrit 26 % (35-47); Lymphocyte % 8.2 %; Mean Corpuscular HGB Conc 35 g/dL (31-36); Mean Corpuscular Hemoglobin 36 pg (27-31); Mean Corpuscular Volume 102 fL (80-97); Mean Platelet Volume 8.3 fL (7.4-10.4); Nucleated Red Blood Cells % 0.2; Platelet Count 251 10^3/uL (150-450); Red Blood Count 2.51 10^6 /uL (3.70-4.87); Red Cell Distribution Width 16 % (10-15); White Blood Count 8.8 10^3/uL (3.5-10.8)
[2022-03-02 09:55] LABS: Calcium 8.1 mg/dL (8.6-10.3); Potassium 3.2 mmol/L (3.5-5.0); eGFR CKD-EPI 35.7 (>60)
[2022-03-02] MEDS: Polyethylene Glycol 3350 17 GM PACKET PO PRN (11:02)
[2022-03-02] MEDS: Magnesium Hydroxide LIQ 30 ML UDC PO PRN (11:02)
[2022-03-02] MEDS: methylPREDNISolone SOD SUCC 1,000 MG in NS 0.9% 250 ml 250 ML IVPB SCH (11:48)
[2022-03-02] MEDS: Acetaminophen IV 1 GM/100ML 100 ML IV PRN ×2 (12:04→18:10)
[2022-03-02 13:28] LABS: CSF VDRL Negative (Negative)
[2022-03-02] MEDS: Fluconazole 200 MG IVPREMIX 200 MG/100 ML BAG IVPB SCH (13:53)
[2022-03-02] MEDS: cefTRIAXone 2 gm/50 mL D5W 2 GM/50 ML BAG IV SCH (17:44)
[2022-03-03] MEDS: Acetaminophen IV 1 GM/100ML 100 ML IV PRN (01:53)
[2022-03-03] MEDS: NS 0.9% IVPB SCH (04:03)
[2022-03-03] MEDS: AMPICILLIN IVPB SCH (04:03)
[2022-03-03] MEDS: cefTRIAXone 2 gm/50 mL D5W 2 GM/50 ML BAG IV SCH ×2 (05:35→17:33)
[2022-03-03] MEDS ORDERED: Vancomycin Random Level NOTE FOLLOW UP ONE (06:00)
[2022-03-03] MEDS: Levothyroxine 100 MCG/5 ML VIAL IV SCH (06:10)
[2022-03-03 06:39] LABS: Vancomycin Random 15.8 mcg/mL; eGFR CKD-EPI 33.4 (>60)
[2022-03-03] MEDS: LORazepam 2 mg VIAL 1 ml IV PUSH PRN (08:04)
[2022-03-03] MEDS: Nystatin TOP POWDER 15 GM BTL TOPICAL SCH ×3 (08:05→20:42)
[2022-03-03] MEDS: Pantoprazole VIAL 40 MG VIAL IV SCH (08:05)
[2022-03-03] MEDS ORDERED: Morphine 2 MG/ML SYRINGE IV ONE (09:00)
[2022-03-03] MEDS ORDERED: Albuterol HFA INHALER 8 gm MDI INH PRN (20:51)
[2022-03-04] MEDS ORDERED: Morphine 2 MG/ML SYRINGE IV ONE (02:00)
[2022-03-04] MEDS: LORazepam 2 mg VIAL 1 ml IV PUSH PRN ×2 (03:58→11:52)
[2022-03-04] MEDS: Levothyroxine 100 MCG/5 ML VIAL IV SCH (05:24)
[2022-03-04] MEDS: cefTRIAXone 2 gm/50 mL D5W 2 GM/50 ML BAG IV SCH ×2 (05:51→17:38)
[2022-03-04 05:53] LABS: ABS Lymphocytes 0.8 10^3/ul (1.0-4.8); ABS Monocytes 0.3 10^3/ul (0-0.8); ABS Neutrophils 5.9 10^3/ul (1.5-7.7); ABS Nucleated RBC 0.3 10^3/ul; Hematocrit 24 % (35-47); Hemoglobin 8.1 g/dL (12.0-16.0); Lymphocyte % 10.8 %; Mean Corpuscular HGB Conc 34 g/dL (31-36); Mean Corpuscular Hemoglobin 35 pg (27-31); Mean Corpuscular Volume 104 fL (80-97); Mean Platelet Volume 9.4 fL (7.4-10.4); Nucleated Red Blood Cells % 3.7; Platelet Count 265 10^3/uL (150-450); Red Blood Count 2.29 10^6 /uL (3.70-4.87); Red Cell Distribution Width 16 % (10-15)
[2022-03-04 06:44] LABS: Albumin 3.2 g/dL (3.2-5.2); Albumin/Globulin Ratio 1.4 (1-3); Calcium 8.1 mg/dL (8.6-10.3); Globulin 2.3 g/dL (2-4); Potassium 3.2 mmol/L (3.5-5.0); Total Bilirubin 0.5 mg/dL (0.2-1.0); Total Protein 5.5 g/dL (6.4-8.9); eGFR CKD-EPI 36.5 (>60)
[2022-03-04] MEDS: Nystatin TOP POWDER 15 GM BTL TOPICAL SCH ×3 (07:29→20:19)
[2022-03-04] MEDS: Pantoprazole VIAL 40 MG VIAL IV SCH (07:29)
[2022-03-04 11:47] LABS: Magnesium 2.3 mg/dL (1.9-2.7)
[2022-03-04] MEDS ORDERED: Lactated Ringers 1000 ml BAG 1,000 ML IV SCH (12:00)
[2022-03-04 12:34] LABS: Hepatitis B Surface Antigen Nonreactive (Nonreactive)
[2022-03-04 12:39] LABS: Hepatitis A Ab IgM Negative (Negative); Hepatitis B Core IgM Nonreactive (Nonreactive)
[2022-03-04 12:51] LABS: Hepatitis C Antibody Negative (Negative)
[2022-03-05] MEDS: Levothyroxine 100 MCG/5 ML VIAL IV SCH (06:30)
[2022-03-05] MEDS: cefTRIAXone 2 gm/50 mL D5W 2 GM/50 ML BAG IV SCH ×2 (06:34→17:59)
[2022-03-05 06:49] LABS: Hematocrit 25 % (35-47); Hemoglobin 8.4 g/dL (12.0-16.0); Mean Corpuscular HGB Conc 33 g/dL (31-36); Mean Corpuscular Hemoglobin 35 pg (27-31); Mean Corpuscular Volume 106 fL (80-97); Platelet Count 359 10^3/uL (150-450); Red Cell Distribution Width 16 % (10-15); White Blood Count 11.9 10^3/uL (3.5-10.8)
[2022-03-05 07:08] LABS: ABS Lymphocytes 1.5 10^3/ul (1.0-4.8); ABS Monocytes 0.8 10^3/ul (0-0.8); ABS Neutrophils 9.6 10^3/ul (1.5-7.7); ABS Nucleated RBC 0.6 10^3/ul; Lymphocyte % 12.4 %; Nucleated Red Blood Cells % 4.8
[2022-03-05 07:16] LABS: Albumin 3.4 g/dL (3.2-5.2); Albumin/Globulin Ratio 1.4 (1-3); Calcium 8.4 mg/dL (8.6-10.3); Globulin 2.4 g/dL (2-4); Potassium 3.3 mmol/L (3.5-5.0); Total Bilirubin 0.6 mg/dL (0.2-1.0); Total Protein 5.8 g/dL (6.4-8.9)
[2022-03-05] MEDS: Nystatin TOP POWDER 15 GM BTL TOPICAL SCH ×3 (09:00→20:34)
[2022-03-05] MEDS: Pantoprazole VIAL 40 MG VIAL IV SCH (09:41)
[2022-03-05] MEDS ORDERED: Gadoteridol (CONTRAST) 279.3 MG/ML 10 ML IV ONE (16:14)
[2022-03-05] MEDS: Acetaminophen IV 1 GM/100ML 100 ML IV PRN (20:34)
[2022-03-06] MEDS: Acetaminophen IV 1 GM/100ML 100 ML IV PRN (01:14)
[2022-03-06] MEDS: LORazepam 2 mg VIAL 1 ml IV PUSH PRN (03:41)
[2022-03-06] MEDS: cefTRIAXone 2 gm/50 mL D5W 2 GM/50 ML BAG IV SCH ×2 (06:06→17:07)
[2022-03-06] MEDS: Pantoprazole VIAL 40 MG VIAL IV SCH (08:41)
[2022-03-06] MEDS: Nystatin TOP POWDER 15 GM BTL TOPICAL SCH ×3 (10:11→22:43)
[2022-03-07] MEDS: cefTRIAXone 2 gm/50 mL D5W 2 GM/50 ML BAG IV SCH ×2 (06:00→18:57)
[2022-03-07] MEDS: Pantoprazole VIAL 40 MG VIAL IV SCH (09:17)
[2022-03-07] MEDS: Nystatin TOP POWDER 15 GM BTL TOPICAL SCH ×3 (09:18→22:35)
[2022-03-07] MEDS: LORazepam 2 mg VIAL 1 ml IV PUSH PRN (19:41)
[2022-03-08] MEDS: LORazepam 2 mg VIAL 1 ml IV PUSH PRN ×3 (05:22→23:19)
[2022-03-08] MEDS: cefTRIAXone 2 gm/50 mL D5W 2 GM/50 ML BAG IV SCH ×2 (05:26→17:37)
[2022-03-08 06:21] LABS: Albumin 3.1 g/dL (3.2-5.2); Albumin/Globulin Ratio 1.4 (1-3); Calcium 7.9 mg/dL (8.6-10.3); Globulin 2.2 g/dL (2-4); Potassium 2.9 mmol/L (3.5-5.0); Total Bilirubin 0.6 mg/dL (0.2-1.0); Total Protein 5.3 g/dL (6.4-8.9); eGFR CKD-EPI 73.7 (>60)
[2022-03-08] MEDS: Nystatin TOP POWDER 15 GM BTL TOPICAL SCH ×3 (08:54→20:44)
[2022-03-08] MEDS: Pantoprazole VIAL 40 MG VIAL IV SCH (08:55)
[2022-03-08] MEDS: KCL 10 MEQ/50 ML IVPREMIX 10 MEQ/50 ML BAG IV SCH ×4 (12:59→22:47)
[2022-03-08 18:13] LABS: AGNA-1, CSF Negative titer (<1:2); Amphiphysin Ab, CSF Negative titer (<1:2); CRMP-5-IgG, CSF Negative titer (<1:2); PCA-1, CSF Negative titer (<1:2); PCA-2, CSF Negative titer (<1:2); PCA-Tr, CSF Negative titer (<1:2)
[2022-03-08 18:18] LABS: AGNA-1, CSF Negative titer (<1:2); ANNA-1, CSF Negative titer (<1:2); ANNA-2, CSF Negative titer (<1:2); ANNA-3, CSF Negative titer (<1:2); Amphiphysin Ab, CSF Negative titer (<1:2); CRMP-5-IgG, CSF Negative titer (<1:2); PCA-1, CSF Negative titer (<1:2); PCA-2, CSF Negative titer (<1:2); PCA-Tr, CSF Negative titer (<1:2)
[2022-03-08 19:07] LABS: Magnesium 1.5 mg/dL (1.9-2.7); Potassium 3.1 mmol/L (3.5-5.0)
[2022-03-08] MEDS ORDERED: Magnesium Sulfate 2 gm BAG 2 GM/50 ML BAG IVPB ONE (19:50)
[2022-03-09] MEDS: KCL 10 MEQ/50 ML IVPREMIX 10 MEQ/50 ML BAG IV SCH ×5 (00:02→12:53)
[2022-03-09] MEDS: cefTRIAXone 2 gm/50 mL D5W 2 GM/50 ML BAG IV SCH ×2 (05:38→17:42)
[2022-03-09 05:58] LABS: ABS Basophils 0.1 10^3/ul (0-0.2); ABS Eosinophils 0.2 10^3/ul (0-0.6); ABS Lymphocytes 1.7 10^3/ul (1.0-4.8); ABS Monocytes 0.5 10^3/ul (0-0.8); ABS Neutrophils 6.7 10^3/ul (1.5-7.7); Eosinophil % 2.3 %; Hematocrit 26 % (35-47); Lymphocyte % 18.1 %; Mean Corpuscular HGB Conc 35 g/dL (31-36); Mean Corpuscular Hemoglobin 36 pg (27-31); Mean Corpuscular Volume 106 fL (80-97); Mean Platelet Volume 8.8 fL (7.4-10.4); Nucleated Red Blood Cells % 0.1; Platelet Count 316 10^3/uL (150-450); Red Blood Count 2.47 10^6 /uL (3.70-4.87); Red Cell Distribution Width 16 % (10-15); White Blood Count 9.2 10^3/uL (3.5-10.8)
[2022-03-09 06:22] LABS: Albumin 3.1 g/dL (3.2-5.2); Albumin/Globulin Ratio 1.6 (1-3); Calcium 7.8 mg/dL (8.6-10.3); Magnesium 1.7 mg/dL (1.9-2.7); Potassium 3.1 mmol/L (3.5-5.0); Total Bilirubin 0.6 mg/dL (0.2-1.0); Total Protein 5.1 g/dL (6.4-8.9); eGFR CKD-EPI 80.2 (>60)
[2022-03-09] MEDS: Nystatin TOP POWDER 15 GM BTL TOPICAL SCH ×3 (08:12→19:33)
[2022-03-09] MEDS: Pantoprazole VIAL 40 MG VIAL IV SCH (08:12)
[2022-03-09] MEDS ORDERED: Magnesium Sulf 4 GM/100 ML IV 4,000 MG/100 ML BAG IVPB ONE (09:00)
[2022-03-09] MEDS: LORazepam 2 mg VIAL 1 ml IV PUSH PRN (10:11)
[2022-03-09 12:06] LABS: Body Fluid Source Cerebral Spinal
[2022-03-09 12:21] LABS: CSF Glucose 43 mg/dL (40-70)
[2022-03-09 12:39] LABS: Body Fluid Appearance Clear; Body Fluid Color Colorless; CSF Tube # 4
[2022-03-09 13:26] LABS: Body Fluid Mono 1 %; Body Fluid Total Cells Counted 200
[2022-03-09 13:33] LABS: Body Fluid WBC 58 /mcL
[2022-03-10 05:49] LABS: ABS Basophils 0.1 10^3/ul (0-0.2); ABS Eosinophils 0.2 10^3/ul (0-0.6); ABS Lymphocytes 1.2 10^3/ul (1.0-4.8); ABS Monocytes 0.5 10^3/ul (0-0.8); ABS Neutrophils 4.8 10^3/ul (1.5-7.7); Eosinophil % 2.9 %; Hematocrit 27 % (35-47); Hemoglobin 9.2 g/dL (12.0-16.0); Mean Corpuscular HGB Conc 34 g/dL (31-36); Mean Corpuscular Hemoglobin 36 pg (27-31); Mean Corpuscular Volume 106 fL (80-97); Mean Platelet Volume 8.7 fL (7.4-10.4); Platelet Count 262 10^3/uL (150-450); Red Blood Count 2.58 10^6 /uL (3.70-4.87); Red Cell Distribution Width 16 % (10-15); White Blood Count 6.8 10^3/uL (3.5-10.8)
[2022-03-10] MEDS: cefTRIAXone 2 gm/50 mL D5W 2 GM/50 ML BAG IV SCH ×2 (05:53→18:08)
[2022-03-10 06:11] LABS: Albumin/Globulin Ratio 1.5 (1-3); Calcium 7.6 mg/dL (8.6-10.3); Potassium 3.1 mmol/L (3.5-5.0); Total Bilirubin 0.8 mg/dL (0.2-1.0); eGFR CKD-EPI 100.1 (>60)
[2022-03-10] MEDS: Pantoprazole VIAL 40 MG VIAL IV SCH (08:50)
[2022-03-10] MEDS: Nystatin TOP POWDER 15 GM BTL TOPICAL SCH ×3 (08:50→19:42)
[2022-03-10] MEDS ORDERED: oxyCODONE/Acetamin 5/325 mg TAB PO ONE (11:23)
[2022-03-10] MEDS ORDERED: Ondansetron 4 mg VIAL 2 MG/ML 2 ml VIAL IV PRN (11:24)
[2022-03-10] MEDS: LORazepam 2 mg VIAL 1 ml IV PUSH PRN (19:55)
[2022-03-10] MEDS ORDERED: Potassium Chlor 20 meq TAB.ER PO ONE (20:14)
[2022-03-11] MEDS: cefTRIAXone 2 gm/50 mL D5W 2 GM/50 ML BAG IV SCH ×2 (05:17→18:00)
[2022-03-11 06:23] LABS: ABS Eosinophils 0.2 10^3/ul (0-0.6); ABS Monocytes 0.4 10^3/ul (0-0.8); ABS Neutrophils 3.2 10^3/ul (1.5-7.7); Eosinophil % 3.9 %; Hematocrit 26 % (35-47); Hemoglobin 8.8 g/dL (12.0-16.0); Lymphocyte % 20.2 %; Mean Corpuscular HGB Conc 33 g/dL (31-36); Mean Corpuscular Hemoglobin 36 pg (27-31); Mean Corpuscular Volume 107 fL (80-97); Mean Platelet Volume 9.1 fL (7.4-10.4); Platelet Count 217 10^3/uL (150-450); Red Blood Count 2.46 10^6 /uL (3.70-4.87); Red Cell Distribution Width 16 % (10-15); White Blood Count 4.8 10^3/uL (3.5-10.8)
[2022-03-11 06:39] LABS: Calcium 7.5 mg/dL (8.6-10.3); Magnesium 1.8 mg/dL (1.9-2.7); Potassium 3.4 mmol/L (3.5-5.0); eGFR CKD-EPI 100.1 (>60)
[2022-03-11] MEDS ORDERED: Magnesium Sulfate IV 1GM/100ML 1 GM/100 ML BAG IV ONE (07:34)
[2022-03-11] MEDS ORDERED: Potassium Chlor 10 meq TAB PO ONE (07:34)
[2022-03-11] MEDS: Pantoprazole VIAL 40 MG VIAL IV SCH (09:46)
[2022-03-11] MEDS: Nystatin TOP POWDER 15 GM BTL TOPICAL SCH ×3 (12:34→20:57)
[2022-03-11] MEDS: oxyCODONE/Acetamin 5/325 mg TAB PO PRN ×2 (12:40→19:27)
[2022-03-12] MEDS: oxyCODONE/Acetamin 5/325 mg TAB PO PRN ×2 (02:41→08:46)
[2022-03-12] MEDS: cefTRIAXone 2 gm/50 mL D5W 2 GM/50 ML BAG IV SCH (05:42)
[2022-03-12 06:08] LABS: Calcium 7.4 mg/dL (8.6-10.3); Magnesium 1.7 mg/dL (1.9-2.7); Potassium 3.6 mmol/L (3.5-5.0); eGFR CKD-EPI 98.3 (>60)
[2022-03-12] MEDS: Pantoprazole VIAL 40 MG VIAL IV SCH (08:46)
[2022-03-12] MEDS: Nystatin TOP POWDER 15 GM BTL TOPICAL SCH (08:46)
[2022-03-12 09:28] LABS: Rapid COVID-19 Molecular Undetected (Undetected)
[2022-03-12 11:44] VITALS: BP 99/71
== END 2022-03-12 13:40 | DRG 720 ==
LOC: ED 05:58 → ICU 07:32 → EDHOLD 13:35 → SUATTDRO 13:35 → ICU 17:26 → MED 03-01 16:06
PROVIDERS: ADMIT Surgery Surgical Critical Care; ATTEND Internal Medicine Medical Oncology

== ENCOUNTER 2022-03-17 14:59 | Inpatient (IN) ==
[2022-03-17] MEDS ORDERED: LORazepam 2 mg VIAL 1 ml IM ONE (16:12)
[2022-03-17] MEDS ORDERED: Lorazepam PYXIS KEY PRN ×2 (16:12→16:15)
[2022-03-17] MEDS ORDERED: LORazepam 2 mg VIAL 1 ml ONE (16:13)
[2022-03-17] MEDS ORDERED: LORazepam 2 mg VIAL 1 ml IV PUSH ONE (16:15)
[2022-03-17 16:39] LABS: Hematocrit 29 % (35-47); Hemoglobin 9.8 g/dL (12.0-16.0); Mean Corpuscular HGB Conc 33 g/dL (31-36); Mean Corpuscular Hemoglobin 35 pg (27-31); Mean Corpuscular Volume 105 fL (80-97); Mean Platelet Volume 8.2 fL (7.4-10.4); Platelet Count 218 10^3/uL (150-450); Red Cell Distribution Width 15 % (10-15); White Blood Count 4.8 10^3/uL (3.5-10.8)
[2022-03-17 17:19] LABS: Albumin 3.3 g/dL (3.2-5.2); Calcium 9.2 mg/dL (8.6-10.3); Magnesium 1.2 mg/dL (1.9-2.7); Potassium 3.5 mmol/L (3.5-5.0); Total Protein 5.7 g/dL (6.4-8.9)
[2022-03-17 17:20] LABS: Albumin/Globulin Ratio 1.4 (1-3); Globulin 2.4 g/dL (2-4); Total Bilirubin 0.8 mg/dL (0.2-1.0)
[2022-03-17 17:30] LABS: Macrocytosis 1+
[2022-03-17 17:31] LABS: ABS Eosinophils 0.2 10^3/ul (0-0.6); ABS Lymphocytes 1.5 10^3/ul (1.0-4.8); ABS Monocytes 0.5 10^3/ul (0-0.8); ABS Neutrophils 2.5 10^3/ul (1.5-7.7); Eosinophil % 4.7 %; Lymphocyte % 32.2 %; Nucleated Red Blood Cells % 0.1
[2022-03-17] MEDS: levETIRAcetam IVPREMIX 1,000 MG/100 ML BAG IVPB SCH ×2 (17:32→18:31)
[2022-03-17] MEDS ORDERED: Dexamethasone IV 4 MG/ML VIAL 1 ml VIAL IV SLOW PU ONE (18:08)
[2022-03-17] MEDS ORDERED: levETIRAcetam 1000MG IVPREMIX 1,000 MG/100 ML BAG IVPB ONE (18:32)
[2022-03-17] MEDS ORDERED: Magnesium Sulf 4 GM/100 ML IV 4,000 MG/100 ML BAG IVPB ONE (18:33)
[2022-03-17] MEDS ORDERED: Metoprolol Tartrate 5 mg VIAL 5 ml VIAL (1 mg/ml) IV PRN (19:00)
[2022-03-17] MEDS ORDERED: Dextrose 50% Syringe 50 ml 25 GM/50 ML SYRINGE IV PUSH PRN (19:02)
[2022-03-17 19:28] LABS: TSH Ultra Thyroid Stim Horm 46.7 mcIU/mL (0.34-5.60)
[2022-03-17] MEDS: Heparin 5000 UNITS/ML 1 mL VIAL SUBCUT SCH (22:09)
[2022-03-17] MEDS: cefTRIAXone 2 gm/50 mL D5W 2 GM/50 ML BAG IV SCH (22:09)
[2022-03-18] MEDS: Dexamethasone IV 4 MG/ML VIAL 1 ml VIAL IV SLOW PU SCH ×4 (01:35→18:05)
[2022-03-18 04:56] LABS: ABS Lymphocytes 0.3 10^3/ul (1.0-4.8); ABS Monocytes 0.2 10^3/ul (0-0.8); ABS Neutrophils 4.5 10^3/ul (1.5-7.7); Eosinophil % 0.2 %; Hematocrit 27 % (35-47); Hemoglobin 9.3 g/dL (12.0-16.0); Lymphocyte % 5.8 %; Mean Corpuscular HGB Conc 34 g/dL (31-36); Mean Corpuscular Hemoglobin 36 pg (27-31); Mean Corpuscular Volume 105 fL (80-97); Mean Platelet Volume 8.7 fL (7.4-10.4); Nucleated Red Blood Cells % 0.1; Platelet Count 210 10^3/uL (150-450); Red Cell Distribution Width 15 % (10-15)
[2022-03-18 05:42] LABS: Calcium 8.9 mg/dL (8.6-10.3); Magnesium 2.3 mg/dL (1.9-2.7); Potassium 3.9 mmol/L (3.5-5.0); eGFR CKD-EPI 73.7 (>60)
[2022-03-18] MEDS: Heparin 5000 UNITS/ML 1 mL VIAL SUBCUT SCH ×3 (07:01→21:51)
[2022-03-18] MEDS: Levothyroxine 100 MCG/5 ML VIAL IV SCH (07:01)
[2022-03-18] MEDS: levETIRAcetam 1000MG IVPREMIX 1,000 MG/100 ML BAG IVPB SCH ×2 (08:20→21:51)
[2022-03-18] MEDS: cefTRIAXone 2 gm/50 mL D5W 2 GM/50 ML BAG IV SCH ×2 (08:50→19:55)
[2022-03-18] MEDS ORDERED: LEVOTHYROXINE IV SCH (09:00)
[2022-03-18] MEDS ORDERED: D5W IV SCH (09:00)
[2022-03-18] MEDS ORDERED: levETIRAcetam 500 MG IVPREMIX 500 MG/100 ML BAG IV SCH (09:00)
[2022-03-18 16:56] LABS: Thyroid Peroxidase Antibodies 22.17 IU/mL (<9)
[2022-03-19] MEDS: Dexamethasone IV 4 MG/ML VIAL 1 ml VIAL IV SLOW PU SCH ×5 (02:17→22:41)
[2022-03-19] MEDS: Heparin 5000 UNITS/ML 1 mL VIAL SUBCUT SCH ×3 (05:42→22:45)
[2022-03-19] MEDS: Levothyroxine 100 MCG/5 ML VIAL IV SCH (05:43)
[2022-03-19] MEDS: levETIRAcetam 1000MG IVPREMIX 1,000 MG/100 ML BAG IVPB SCH ×2 (08:18→22:21)
[2022-03-19] MEDS: cefTRIAXone 2 gm/50 mL D5W 2 GM/50 ML BAG IV SCH ×2 (08:18→21:27)
[2022-03-19 10:46] LABS: Calcium 9.3 mg/dL (8.6-10.3); Potassium 3.2 mmol/L (3.5-5.0); eGFR CKD-EPI 72.7 (>60)
[2022-03-19] MEDS ORDERED: Lorazepam PYXIS KEY ONE (11:14)
[2022-03-19] MEDS ORDERED: LORazepam 2 mg VIAL 1 ml ONE (11:14)
[2022-03-19] MEDS ORDERED: Gadoteridol (CONTRAST) 279.3 MG/ML 10 ML IV ONE (12:21)
[2022-03-19] MEDS ORDERED: Lorazepam PYXIS KEY PRN (12:53)
[2022-03-19] MEDS ORDERED: LORazepam 2 mg VIAL 1 ml IV PUSH ONE (12:53)
[2022-03-19] MEDS: KCL 20 MEQ/100 ML IVPREMIX 20 MEQ/100 ML BAG IV SCH ×2 (16:02→17:01)
[2022-03-19] MEDS: Thiamine 100 MG/ML 2 ml VIAL 500 MG in NS 0.9% 250 ml 250 ML IV SCH (22:43)
[2022-03-20] MEDS ORDERED: Alteplase (CATHFLO) 2 MG VIAL IV ONE ×2 (00:42→04:00)
[2022-03-20 04:38] LABS: ABS Lymphocytes 0.3 10^3/ul (1.0-4.8); ABS Monocytes 0.3 10^3/ul (0-0.8); Eosinophil % 0.1 %; Hematocrit 26 % (35-47); Hemoglobin 8.7 g/dL (12.0-16.0); Lymphocyte % 5.5 %; Mean Corpuscular HGB Conc 33 g/dL (31-36); Mean Corpuscular Hemoglobin 35 pg (27-31); Mean Corpuscular Volume 106 fL (80-97); Mean Platelet Volume 8.7 fL (7.4-10.4); Platelet Count 267 10^3/uL (150-450); Red Blood Count 2.49 10^6 /uL (3.70-4.87); Red Cell Distribution Width 15 % (10-15); White Blood Count 5.6 10^3/uL (3.5-10.8)
[2022-03-20 05:06] LABS: Calcium 9.3 mg/dL (8.6-10.3); Magnesium 1.9 mg/dL (1.9-2.7); Phosphorus 3.2 mg/dL (2.5-5.0); Potassium 3.4 mmol/L (3.5-5.0)
[2022-03-20] MEDS: Levothyroxine 100 MCG/5 ML VIAL IV SCH (05:42)
[2022-03-20] MEDS: Heparin 5000 UNITS/ML 1 mL VIAL SUBCUT SCH ×3 (05:43→22:37)
[2022-03-20] MEDS: Dexamethasone IV 4 MG/ML VIAL 1 ml VIAL IV SLOW PU SCH ×2 (05:43→12:15)
[2022-03-20] MEDS: cefTRIAXone 2 gm/50 mL D5W 2 GM/50 ML BAG IV SCH ×2 (07:06→20:03)
[2022-03-20] MEDS: levETIRAcetam 1000MG IVPREMIX 1,000 MG/100 ML BAG IVPB SCH ×2 (08:41→22:34)
[2022-03-20] MEDS: Thiamine 100 MG/ML 2 ml VIAL 500 MG in NS 0.9% 250 ml 250 ML IV SCH (10:32)
[2022-03-20] MEDS: Polyethylene Glycol 3350 17 GM PACKET PO PRN (18:17)
[2022-03-21] MEDS: Heparin 5000 UNITS/ML 1 mL VIAL SUBCUT SCH ×3 (04:59→21:37)
[2022-03-21] MEDS: Levothyroxine 100 MCG/5 ML VIAL IV SCH (05:02)
[2022-03-21] MEDS: cefTRIAXone 2 gm/50 mL D5W 2 GM/50 ML BAG IV SCH ×2 (08:20→19:38)
[2022-03-21] MEDS: Polyethylene Glycol 3350 17 GM PACKET PO PRN (09:33)
[2022-03-21] MEDS: levETIRAcetam 1000MG IVPREMIX 1,000 MG/100 ML BAG IVPB SCH ×2 (09:38→21:34)
[2022-03-21] MEDS: Thiamine 100 MG/ML 2 ml VIAL 500 MG in NS 0.9% 250 ml 250 ML IV SCH (10:01)
[2022-03-21] MEDS ORDERED: LORazepam 2 mg VIAL 1 ml IV PUSH ONE (10:27)
[2022-03-21 13:06] LABS: Body Fluid Source Cerebral Spinal
[2022-03-21 13:49] LABS: CSF Glucose 82 mg/dL (40-70)
[2022-03-21 15:40] LABS: Body Fluid Appearance Clear; Body Fluid Color Colorless
[2022-03-21 15:41] LABS: CSF Tube # 1
[2022-03-21 16:12] LABS: Body Fluid WBC 17 /mcL
[2022-03-21 17:17] LABS: Body Fluid Mono 2 %; Body Fluid Total Cells Counted 200
[2022-03-22] MEDS: Levothyroxine 100 MCG/5 ML VIAL IV SCH (06:30)
[2022-03-22] MEDS: Heparin 5000 UNITS/ML 1 mL VIAL SUBCUT SCH ×3 (06:34→21:24)
[2022-03-22] MEDS: cefTRIAXone 2 gm/50 mL D5W 2 GM/50 ML BAG IV SCH ×2 (08:59→21:17)
[2022-03-22] MEDS: levETIRAcetam 1000MG IVPREMIX 1,000 MG/100 ML BAG IVPB SCH (09:54)
[2022-03-22] MEDS: Polyethylene Glycol 3350 17 GM PACKET PO PRN (14:19)
[2022-03-23] MEDS: levETIRAcetam 1000MG IVPREMIX 1,000 MG/100 ML BAG IVPB SCH ×3 (00:17→22:15)
[2022-03-23] MEDS: Heparin 5000 UNITS/ML 1 mL VIAL SUBCUT SCH ×3 (05:34→20:51)
[2022-03-23] MEDS: Levothyroxine 100 MCG/5 ML VIAL IV SCH (05:36)
[2022-03-23] MEDS: cefTRIAXone 2 gm/50 mL D5W 2 GM/50 ML BAG IV SCH ×2 (07:35→20:51)
[2022-03-24] MEDS: Heparin 5000 UNITS/ML 1 mL VIAL SUBCUT SCH ×3 (04:45→21:17)
[2022-03-24] MEDS: Levothyroxine 100 MCG/5 ML VIAL IV SCH (04:45)
[2022-03-24] MEDS: cefTRIAXone 2 gm/50 mL D5W 2 GM/50 ML BAG IV SCH ×2 (08:08→21:14)
[2022-03-24] MEDS: levETIRAcetam 1000MG IVPREMIX 1,000 MG/100 ML BAG IVPB SCH ×2 (09:08→22:03)
[2022-03-25] MEDS: Levothyroxine 100 MCG/5 ML VIAL IV SCH (06:17)
[2022-03-25] MEDS: Heparin 5000 UNITS/ML 1 mL VIAL SUBCUT SCH ×3 (06:17→20:36)
[2022-03-25] MEDS: levETIRAcetam 1000MG IVPREMIX 1,000 MG/100 ML BAG IVPB SCH (08:35)
[2022-03-25] MEDS: cefTRIAXone 2 gm/50 mL D5W 2 GM/50 ML BAG IV SCH ×2 (09:22→20:38)
[2022-03-26] MEDS: Heparin 5000 UNITS/ML 1 mL VIAL SUBCUT SCH ×2 (05:54→17:28)
[2022-03-26] MEDS: Levothyroxine 100 MCG/5 ML VIAL IV SCH (05:54)
[2022-03-26] MEDS: cefTRIAXone 2 gm/50 mL D5W 2 GM/50 ML BAG IV SCH ×2 (09:08→20:17)
[2022-03-26 19:14] VITALS: BP 90/40
[2022-03-27] MEDS: Levothyroxine 100 MCG/5 ML VIAL IV SCH (05:52)
[2022-03-27] MEDS: cefTRIAXone 2 gm/50 mL D5W 2 GM/50 ML BAG IV SCH (08:08)
[2022-03-28 11:23] LABS: AGNA-1, CSF Negative titer (<1:2); ANNA-1, CSF Negative titer (<1:2); ANNA-2, CSF Negative titer (<1:2); ANNA-3, CSF Negative titer (<1:2); Amphiphysin Ab, CSF Negative titer (<1:2); CRMP-5-IgG, CSF Negative titer (<1:2); PCA-1, CSF Negative titer (<1:2); PCA-2, CSF Negative titer (<1:2); PCA-Tr, CSF Negative titer (<1:2)
== END 2022-03-27 15:55 | disposition hospice, home (50) | DRG 50 ==
LOC: ED 14:59 → EDHOLD 19:57 → SUATTDRO 19:57 → ICU 19:58 → MED 03-19 21:41
PROVIDERS: ADMIT Internal Medicine Critical Care Medicine; ATTEND Internal Medicine Hematology & Oncology